=== PATIENT | female | born 1975 | race Caucasian/White ===

== ENCOUNTER 2020-09-23 14:15 | Outpatient (CLI) | payer MEDICARE, MEDICAID, SELFPAY ==
--- NOTE | ~2020-09-23 | XR_ITS ---
EXAMINATION: XR chest 2V EXAM DATE: 09/23/2020 15:06 INDICATION: Tobacco use. TECHNIQUE: Frontal and lateral projections of the chest obtained and reviewed. There is no prior sarmad dy for comparison. FINDINGS: The lungs are clear. There are no pleural effusions. The cardiomediastinal silhouette is within normal limits. There is no pneumothorax suspected. The bones and soft tissues are unremarkab le. IMPRESSION: No acute cardiopulmonary findings. Reviewed, dictated and finalized at location B. 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
== END 2020-09-23 14:16 | disposition home or self-care (01) ==
PROVIDERS: PCP Emergency Medicine; Visit Provider Emergency Medicine
DX: Z72.0 Tobacco use (principal)
CPT/HCPCS: 71046

== ENCOUNTER 2020-09-23 14:33 | Outpatient (CLI) | payer MEDICARE, MEDICAID, SELFPAY ==
--- NOTE | ~2020-09-23 | XR_ITS ---
EXAMINATION: XR knee RT min 4V DATE: 09/23/2020 15:06 INDICATION: Right knee pain. TECHNIQUE: 4 views of right knee were obtained. COMPARISON: None. FINDINGS: Bone alignment is normal. No fracture. There is mild tricompartmental osteoarthritis. No kn ee joint effusion. IMPRESSION: 1. Mild right knee osteoarthritis. Reviewed, dictated and finalized at location A. 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
--- NOTE | ~2020-09-23 | XR_ITS ---
EXAMINATION: XR shoulder RT min 2V DATE: 09/23/2020 15:06 INDICATION: Right shoulder pain. TECHNIQUE: 4 views of right shoulder were obtained. COMPARISON: None. FINDINGS: Bone alignment is normal. No fracture. There is mild osteoarthritis of glenohumeral joint a nd acromioclavicular joint. IMPRESSION: 1. Mild polyarticular osteoarthritis. Reviewed, dictated and finalized at location A. CTOR SALES TRAINING
--- NOTE | ~2020-09-23 | XR_ITS ---
EXAMINATION: XR lumbar spine 2-3V DATE: 09/23/2020 15:06 INDICATION: Lumbar radicular pain TECHNIQUE: Anteroposterior and lateral views of the lumbar spine, and cone-down lateral view of the l umbosacral junction were obtained. COMPARISON: None. FINDINGS: 4 mm anterolisthesis L4 on L5. Vertebral body heights are normal. Mild to moderate disc height loss a t L4-L5 and L5-S1. Mild disc height loss at L3-L4. Although poorly profiled there appears to be addit ional mild to moderate disc height loss at T9-T10 through L1-L2. Moderate to severe facet osteoarthri tis on the left at L2-L3 and bilaterally at L3-L4 through L5-S1. Sacrum and bilateral sacralized join ts are unremarkable. Visualized posterior lung bases are clear with no pleural effusion. IMPRESSION: 1. Moderate thoracolumbar spondylosis with 4 mm anterolisthesis L4 on L5. Reviewed, dictated and finalized at [facility]. PER FELLER
== END 2020-09-23 14:34 | disposition home or self-care (01) ==
LOC: ANHIMG 14:36
PROVIDERS: PCP Emergency Medicine; Visit Provider Nurse Practitioner
DX: M54.16 Radiculopathy, lumbar region (principal); M25.561 Pain in right knee; M25.511 Pain in right shoulder; M47.815 Spondylosis without myelopathy or radiculopathy, thoracolumbar region; M43.16 Spondylolisthesis, lumbar region; M19.011 Primary osteoarthritis, right shoulder; M17.11 Unilateral primary osteoarthritis, right knee
CPT/HCPCS: 71046; 72100; 73030; 73564

== ENCOUNTER 2020-10-22 15:48 | Outpatient (CLI) | payer MEDICARE, MEDICAID, SELFPAY ==
--- NOTE | ~2020-10-22 | MM_ITS ---
EXAMINATION: MM screening bartolo BI w leida HISTORY: Screening mammogram TECHNIQUE: Craniocaudal and mediolateral oblique 3-D tomosynthesis images were obtained and synthetic 2-D images were generated. CAD analysis was submitted and interpreted. COMPARISON: No prior mammogram is available for comparison at this institution. BREAST PARENCHYMAL COMPOSITION: The breasts are almost entirely fatty. FINDINGS: There are scattered bilateral benign calcifications. There is no evidence of suspicious mas s, calcification, or architectural distortion to suggest malignancy in either breast. There has been no suspicious interval change. IMPRESSION: 1. No mammographic evidence of malignancy. 2. Recommend routine screening mammography in one year. BI-RADS Category 1: Negative Reviewed, dictated and finalized at location A. OF IT
== END 2020-10-22 15:49 | disposition home or self-care (01) ==
PROVIDERS: PCP Emergency Medicine; Visit Provider Emergency Medicine
DX: Z12.31 Encounter for screening mammogram for malignant neoplasm of breast (principal)
CPT/HCPCS: 77063; 77067

== ENCOUNTER 2020-11-19 08:06 | Emergency (ER) | payer MEDICARE, MEDICAID, SELFPAY ==
--- NOTE | ~2020-11-19 | CT_ITS ---
EXAMINATION: CT brain wo con DATE: 11/19/2020 08:49 INDICATION: Head injury. TECHNIQUE: Computed tomography (CT) of the head was performed without intravenous contrast. The mA wa s adjusted according to patient size. Iterative reconstruction technique was employed. The dose-lengt h product was 605.33 mGy-cm. COMPARISON: None FINDINGS: There is no intracranial hemorrhage, acute infarction, or abnormal intracranial mass lesion . The ventricles are normal in size. The mastoid air cells are normal. There is minimal mucosal thick ening in the paranasal sinuses. Vertebral body heights are normal. IMPRESSION: 1. Normal brain. Reviewed, dictated and finalized at location B. EY'S AGENT IMPRESSION: 1. Normal brain.
--- NOTE | ~2020-11-19 | CT_ITS ---
EXAMINATION: CT facial & cervical spine wo DATE: 11/19/2020 08:49 INDICATION: Head and neck injury. TECHNIQUE: Computed tomography (CT) of the maxillofacial region and cervical spine was performed with out intravenous contrast. Automated exposure control and iterative reconstruction technique were empl oyed. The dose-length product was 481.58 mGy-cm. COMPARISON: None FINDINGS: MAXILLOFACIAL CT: There is leftward deviation of the nasal septum. No fracture. There is minimal mucosal thickening in the paranasal sinuses. CERVICAL SPINE CT: There is mild kyphosis of cervical spine. Vertebral body heights are normal. There is mildly decrease d disc height at C5-C6 and moderately decreased disc height at C6-C7. The following disc levels are s pecifically discussed: C2-C3: There is no uncovertebral joint osteoarthritis. There is mild bilateral facet joint osteoarthr itis. There is no neural foraminal stenosis. There is no central canal stenosis. C3-C4: There is mild bilateral uncovertebral joint osteoarthritis. There is no facet joint osteoarthr itis. There is mild bilateral neural foraminal stenosis. There is no central canal stenosis. C4-C5: There is no uncovertebral joint osteoarthritis. There is no facet joint osteoarthritis. There is no neural foraminal stenosis. There is no central canal stenosis. C5-C6: There is mild bilateral uncovertebral joint osteoarthritis. There is no facet joint osteoarthr itis. There is mild bilateral neural foraminal stenosis. There is mild central canal stenosis. C6-C7: There is severe right and mild left uncovertebral joint osteoarthritis. There is mild bilatera l facet joint osteoarthritis. There is moderate right and mild left neural foraminal stenosis. There is mild central canal stenosis. C7-T1: There is no uncovertebral joint osteoarthritis. There is moderate bilateral facet joint osteoa rthritis. There is mild left neural foraminal stenosis. There is no central canal stenosis. IMPRESSION: 1. No fracture. 2. Moderate cervical spondylosis. Reviewed, dictated and finalized at location B. TUBE WINDER
[2020-11-19 08:16] VITALS: BP 148/77; PULSE 71; RESP 13; TEMP 36.5; O2SAT 100
[2020-11-19] MEDS: KETOROLAC (*BKC) 60 MG/2 ML VIAL IM (08:35)
--- NOTE | 2020-11-19 08:47 | ED.FALL ---
HPI - Fall General Chief Complaint: Fall Stated Complaint: syncope Time Seen by Provider: 11/19/20 08:12 History of Present Illness HPI Narrative: Patient is a 45-year-old female who presents ER with concerns for injury after having a syncopal episode 2 days ago. Patient reports she was sitting at a desk and took a bong hit. It hit her wrong and caused her to lose consciousness. She struck her face. Since then she has had aching to her neck with no numbness or tingling. She reports she is had some mild headache. She reports additionally yesterday she had repetitive questioning is reported by family member. She is alert and oriented at this time. She has obvious signs of trauma to her face including swelling and bruising. No additional complaints at this time. She is not on any blood thinners. Related Data Home Medications Medication Instructions Recorded Confirmed aspirin [Adult Aspirin] 81 mg PO DAILY 11/19/20 buspirone 5 mg PO 11/19/20 cyclobenzaprine 10 mg 11/19/20 duloxetine mg PO 11/19/20 gabapentin 300 mg PO 11/19/20 lisinopril 10 mg PO 11/19/20 oxycodone-acetaminophen 1 tablet 11/19/20 quetiapine 100 mg PO 11/19/20 Allergies Allergy/AdvReac Type Severity Reaction Status Date / Time latex Allergy Other Verified 11/19/20 08:26 acetaminophen [From Vicodin] AdvReac Hallucinati Verified 11/19/20 08:31 ng hydrocodone [From Vicodin] AdvReac Hallucinati Verified 11/19/20 08:31 ng Review of Systems Review of Systems: All systems reviewed & are unremarkable except as noted in HPI and below ENT: Comments: Nasal pain/swelling. 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 HEAD: Normocephalic, atraumatic. ENT: Mucous membranes moist. Bruising and swelling over the bridge of the nose and bruising extends infraorbitally bilaterally. NECK: Supple. Mild paraspinal tenderness to the right side extending into the trapezius musculature. CHEST: Clear to auscultation. No respiratory distress. HEART: Regular rate and rhythm. Normal peripheral pulses. EXTREMITIES: Normal range of motion. No edema. NEURO: Alert and oriented x3. PSYCH: Normal mood and affect. Course Course Emergency Course: Asymptomatic orthostatic vital signs. Informed results. Discharge home. Vital Signs Vital signs: Vital Signs Temperature 97.7 F 11/19/20 08:16 Pulse Rate 71 11/19/20 08:16 Respiratory Rate 13 11/19/20 08:16 Blood Pressure 148/77 H 11/19/20 08:16 Pulse Oximetry 100 11/19/20 08:16 Temperature 97.7 F 11/19/20 08:16 Pulse Rate 64 11/19/20 09:33 Respiratory Rate 18 11/19/20 09:33 Blood Pressure 127/82 11/19/20 09:33 Pulse Oximetry 99 11/19/20 09:33 MDM - Fall Imaging Data Radiologist's impression: ITS Impressions Head CT 11/19/20 08:51 IMPRESSION: 1. Normal brain. Head/Cervical Spine/Facial Bones CT 11/19/20 08:53 IMPRESSION: 1. No fracture. 2. Moderate cervical spondylosis. Discharge Plan Discharge Clinical Impression: Concussion Patient Disposition: Home, Self-Care Condition: Stable Instructions: Concussion (ED) Additional Instructions: Return to the ER if you lose consciousness, you have fever over 101F, you have focal weakn
[2020-11-19 08:54] VITALS: BP 138/83; PULSE 76
[2020-11-19 08:55] VITALS: BP 121/89; BP 125/90; PULSE 67; PULSE 74
[2020-11-19 09:33] VITALS: BP 127/82; PULSE 64; RESP 18; O2SAT 99
[2020-11-19 10:10] VITALS: BP 134/85; PULSE 67; RESP 16; O2SAT 100
== END 2020-11-19 10:05 | disposition home or self-care (01) ==
PROVIDERS: Emergency Provider Emergency Medicine; PCP Emergency Medicine
DX: S06.0X0A Concussion without loss of consciousness, initial encounter (principal); Z79.82 Long term (current) use of aspirin; W22.8XXA Striking against or struck by other objects, initial encounter
CPT/HCPCS: 70450; 70486; 72125; 96372; 99284; J1885

== ENCOUNTER 2021-08-08 06:46 | Emergency (ER) | payer MEDICARE, MEDICAID, SELFPAY ==
--- NOTE | ~2021-08-08 | XR_ITS ---
XR pelvis 1-2V DATE: 08/08/2021 07:49 INDICATION: Fall 2 days ago. Low back pain, tailbone pain. Left buttock bruising. TECHNIQUE: 2 AP views COMPARISON: None FINDINGS: No pelvic fracture or bone destruction is detected. The pubic symphysis and sacroiliac join ts are intact. Hip joint spaces appear symmetric and relatively preserved. IMPRESSION: No pelvic fracture is detected Reviewed, dictated and finalized at location A.
--- NOTE | ~2021-08-08 | XR_ITS ---
XR lumbar spine 2-3V DATE: 08/08/2021 07:48 INDICATION: Fall 2 days ago. Low back pain, tailbone pain, left buttock bruising TECHNIQUE: AP, lateral, coned lateral lumbosacral views COMPARISON: None FINDINGS: Spina bifida occulta at L5. There is mild dextroscoliosis of the lumbar spine. There is mild degenerative spurring in the lower thoracic spine. There is degenerative change at the apophyseal joints of the lumbar spine with associated minimal grade 1 anterolisthesis at L4-5. No lumbar spine fracture is evident. The lumbar pedicles appear intact. The sacroiliac joints are int act. IMPRESSION: Degenerative changes of the thoracic and lumbar spine Minimal grade 1 anterolisthesis at L4-5 due to degenerative change at the apophyseal joints Mild lumbar dextroscoliosis No lumbar spine fracture is detected. Reviewed, dictated and finalized at location A. IMPRESSION: Degenerative changes of the thoracic and lumbar spine Minimal grade 1 anterolisthesis at L4-5 due to degenerative change at the apoph yseal joints Mild lumbar dextroscoliosis No lumbar spine fracture is detected.
--- NOTE | ~2021-08-08 | XR_ITS ---
XR thoracic spine 3V DATE: 08/08/2021 07:48 INDICATION: Fall. Back pain. TECHNIQUE: AP, lateral, swimmer views COMPARISON: None FINDINGS: There is degenerative disc disease of the lower cervical spine. There is degenerative spurring of the thoracic spine, most prominent on the right at T8-9, T9-10 and T10-11. No fracture or dislocation or bone destruction is detected. The thoracic pedicles are intact. No para spinal soft tissue thickening. IMPRESSION: Degenerative spurring; no thoracic spine fracture is detected Reviewed, dictated and finalized at location A.
[2021-08-08 06:55] VITALS: BP 150/81; PULSE 86; RESP 20; TEMP 36.6; O2SAT 97
[2021-08-08] MEDS: IBUPROFEN 600 MG TABLET PO (07:32)
[2021-08-08 08:09] VITALS: BP 121/52; PULSE 76; RESP 16; O2SAT 98
--- NOTE | 2021-08-08 08:16 | ED.BACK ---
HPI - Back Pain/Injury General Chief Complaint: Back Pain/Injury Stated Complaint: fall Time Seen by Provider: 08/08/21 07:18 Source: patient Mode of arrival: ambulatory Limitations: no limitations History of Present Illness HPI Narrative: Patient presents with pain at the left buttocks and across lumbar area started 2 days ago after missing 3 steps and falling on the floor. Patient denies other injuries. No loss of consciousness. Related Data Home Medications Medication Instructions Recorded Confirmed aspirin [Adult Aspirin] 81 mg PO DAILY 11/19/20 lisinopril 10 mg PO 11/19/20 06/11/21 quetiapine 100 mg PO 11/19/20 06/11/21 buspirone 10 mg tablet 10 mg PO BID 06/11/21 06/11/21 Allergies Allergy/AdvReac Type Severity Reaction Status Date / Time latex Allergy Other Verified 06/11/21 08:49 acetaminophen [From Vicodin] AdvReac Hallucinati Verified 06/11/21 08:49 ng hydrocodone [From Vicodin] AdvReac Hallucinati Verified 06/11/21 08:49 ng Review of Systems Review of Systems: CONSTITUTIONAL: Denies fever, chills, or sweats. EYES: Denies visual changes, redness, or discharge. ENT: Denies rhinorrhea, congestion, sore throat, or otalgia. CARDIOVASCULAR: Denies chest pain, palpitations, or edema. RESPIRATORY: Denies cough or dyspnea. GASTROINTESTINAL: Denies abdominal pain, nausea, vomiting, or diarrhea. GENITOURINARY: Denies dysuria or hematuria. SKIN: Denies rash or itching. MUSCULOSKELETAL: Denies back pain, joint pain, or myalgia. NEUROLOGIC: Denies headache, numbness, or weakness. PSYCHIATRIC: Denies anxiety or depression. 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 Family History Family History Father Alcoholism Mother Alcoholism Depression Hypertension Grandparent Alcoholism Diabetes mellitus Hypertension Heart disease Social History Social History Smoking status: Current every day smoker Tobacco type: cigarettes Alcohol intake: never Substance use: never Substance use type: does not use Gender identity (if verbalized by the patient): Female Sexual Orientation (if Verbalized by the Patient): Straight or Heterosexual Exam Narrative: General appearance: Well-developed, well-nourished Skin: Normal color, left buttock bruises Head: Normocephalic, nontraumatic Eyes: Clear conjunctiva ENT: Oropharynx normal, ears normal, nose normal Neck: Supple, nontender Chest and respiratory: Airway patent, no respiratory distress, no accessory muscle use Heart: Regular rate/rhythm Abdomen: Soft, nontender, no organomegaly, quiet bowel sounds Vascular: Normal peripheral pulses, normal capillary refill. Musculoskeletal: Diffuse tenderness and bruises at the left buttocks, mild tenderness across lumbar area and thoracic area. Neurologic: Alert and oriented ?3, [employer] [place] is normal as tested, no gross motor deficit Course Course Emergency Course: Stable Vital Signs Vital signs: Vital Signs Temperature 36.6 C 08/08/21 06:55 Pulse Rate 86 08/08/21 06:55 Respiratory Rate 20 08/08/21 06:55 Blood Pressure 150/81 H 08/08/21 06:55 Pulse Oximetry 97 08/08/21 06:55 Temperature 36.6 C 08/08/21 06:55 Pulse Rate 76 08/08/21 08:09 Respiratory Rate 16 08/08/21 08:09 Blood Pressure 121/52 L 08/08/21 08:09 Pulse Oximetry 98 08/08/21 08:09 MDM - Back Pain/Injury MDM Narrative Medical decision making narrative: Contusion, strain/sprain is my concern. X-ray thoracic, lumbar and pel
== END 2021-08-08 08:26 | disposition home or self-care (01) ==
PROVIDERS: Emergency Provider Emergency Medicine; PCP Emergency Medicine
DX: S30.0XXA Contusion of lower back and pelvis, initial encounter (principal); F17.210 Nicotine dependence, cigarettes, uncomplicated; Z79.82 Long term (current) use of aspirin; M47.814 Spondylosis without myelopathy or radiculopathy, thoracic region; M47.816 Spondylosis without myelopathy or radiculopathy, lumbar region; W10.9XXA Fall (on) (from) unspecified stairs and steps, initial encounter
CPT/HCPCS: 72072; 72100; 72170; 99284; A9270

== ENCOUNTER 2024-02-01 15:53 | Emergency (ER) | payer OTHER, SELFPAY ==
[2024-02-01] VITALS (15 sets, daily range): BP systolic 136–174; BP diastolic 80–93; PULSE 69–80; RESP 14–29; TEMP 36.3; O2SAT 97–100
--- NOTE | ~2024-02-01 | XR_ITS ---
XR chest 2V DATE: 02/01/2024 16:44 INDICATION: Pain TECHNIQUE: PA and lateral views COMPARISON: No prior radiographs are available from PACS at this time FINDINGS: Mild cardiomegaly. There is pulmonary vascular redistribution which may indicate mild pulmo nary venous hypertension. Slight blunting of the right costophrenic angle may indicate slight pleural effusion. Recommend clinical correlation for mild congestive change. No pulmonary consolidation or pneumothorax. Degenerative changes of the thoracic and lumbar spine. IMPRESSION: Cardiomegaly and possible mild congestive changes; recommend clinical correlation Reviewed, dictated and finalized at location B. IMPRESSION: Cardiomegaly and possible mild congestive changes; recommend clinic al correlation
--- NOTE | 2024-02-01 15:56 | ECG_ITS ---
Measurements Intervals [place] Rate: 85 P: 47 NC: 174 QRS: 4 QRSD: 96 T: 44 QT: 378 QTc: 450 Interpretive Statements SINUS RHYTHM POSSIBLE ANTERIOR MYOCARDIAL INFARCTION , PROBABLY OLD [30 ms Q WAVE IN V3/V4, OR R < 0.2 mV IN V4] NO PREVIOUS ECG AVAILABLE FOR COMPARISON Electronically Signed On 02-02-2024 12:18:28 CDT by Bruce Smyth M.D.
[2024-02-01 16:11] LABS: Basophils Absolute Auto 0.1 K/mm3 (0.0-0.1); Basophils Percent Auto 0.5 % (0.2-1.2); Eosinophils Absolute Auto 0.4 K/mm3 (0-0.3); Eosinophils Percent Auto 3.1 % (0-4.4); Hematocrit 43.9 % (37.0-47.0); Hemoglobin 14.3 g/dL (12.0-15.0); Immature Granulocyte Absolute 0.06 K/mm3 (0.00-0.031); Immature Granulocyte Percent A 0.5 % (0-0.5); Lymphocytes Absolute Auto 5.55 K/mm3 (0.9-3.2); Lymphocytes Percent Auto 42.1 % (18.3-44.2); Mean Corpuscular HGB Conc 32.6 g/dl (32-36); Mean Corpuscular Hemoglobin 33.8 pg (26-34); Mean Corpuscular Volume 103.8 fl (80-100); Mean Platelet Volume 8.5 fl (7.4-10.4); Monocytes Percent Auto 7.8 % (2.6-8.5); Neutrophils Absolute Auto 6.1 K/mm3 (1.3-6.7); Platelet Count Result 594 k/mm3 (150-375); Red Blood Count 4.23 M/mm3 (4.2-5.4); Red Cell Distribution Width 12.8 % (11.5-14.5); White Blood Count 13.2 K/mm3 (4.5-10.0)
--- NOTE | 2024-02-01 16:16 | ED.CHESTPAIN ---
HPI - Chest Pain General Chief Complaint: Chest Pain <Chi Bearden APRN - Last Filed: 02/01/24 16:19> Stated Complaint: chest pain <Chi Bearden APRN - Last Filed: 02/01/24 16:19> Time Seen by Provider: 02/01/24 16:16 <Chi Bearden APRN - Last Filed: 02/01/24 16:19> Focused HPI: Angela is a 48-year-old female patient presenting to the emergency room today with complaints of sharp midsternal chest pain and aching pain over the left clavicle area. She reports that they symptoms started at about 1 hour prior to arrival in the emergency room. Rates her pain currently a 4/10. Pain is reproducible upon palpation over the midsternum/ left clavicle denies any associated shortness of breath, headache, or dizziness. Pain does not radiate down her arm, into her jaw, or into her back. States she does have a history of panic disorder but this is not feel like a normal anxiety attack for her. General: Well-developed, morbidly obese, in no apparent distress Head: Normocephalic, atraumatic. Chest wall: Even rise and fall of the chest wall with respirations, reproducible pain over the mid sternum and the left clavicle upon palpation, no swelling or bruising noted. Cardio: Regular rate and rhythm, s1 and s2 normal, no murmur appreciated. Resp: Clear to auscultation bilaterally, no rhonchi, rales, wheezing or rubs. Extremities: No deformity, no edema, no cyanosis, capillary refill less than 2 seconds, peripheral pulses palpable and strong. Integumentary: [place], warm, and dry, intact without lesion, no rashes. Patient screened in triage and initial orders placed. Additional care and disposition to be based upon diagnostic testing and treatment. <Chi Bearden APRN - Last Filed: 02/01/24 16:19> Source: patient <Chi Bearden APRN - Last Filed: 02/01/24 16:19> Mode of arrival: ambulatory <Chi Bearden APRN - Last Filed: 02/01/24 16:19> Limitations: no limitations <Chi Bearden APRN - Last Filed: 02/01/24 16:19> Related Data Home Medications: Home Medications Medication Instructions Recorded Confirmed albuterol sulfate 90 mcg/actuation 1 puff inhalation Q4H PRN 12/08/22 09/30/23 aerosol inhaler atomoxetine 40 mg capsule 40 mg PO DAILY 12/08/22 09/30/23 duloxetine 30 mg capsule,delayed 30 mg PO BID 12/08/22 09/30/23 release <Chi Bearden APRN - Last Filed: 02/01/24 16:19> Allergies/Adverse Reactions: Allergies Allergy/AdvReac Type Severity Reaction Status Date / Time walnut Allergy Mild rash Verified 01/03/24 10:32 latex Allergy Other Verified 01/03/24 10:32 acetaminophen [From Vicodin] AdvReac Hallucinati Verified 01/03/24 10:32 ng hydrocodone [From Vicodin] AdvReac Hallucinati Verified 01/03/24 10:32 ng <Chi Bearden, GRAPHICS MANAGER - Last Filed: 02/01/24 16:19> Review of Systems Review of Systems: CONSTITUTIONAL: Denies fever CARDIOVASCULAR: Reports chest pain. Denies edema. RESPIRATORY: Denies dyspnea. <Little Gustafson PA-C - Last Filed: 02/01/24 19:57> All systems reviewed & are unremarkable except as noted in HPI and below <Little Gustafson PA-C - Last Filed: 02/01/24 19:57> [facility] Past Medical History Medical History: Medical History Abnormality of heart beat Allergies Anxiety Arthritis Asthma Claustrophobia Congestion of nasal sinus Degenerative joint disease of knee Depression Dizziness Effusion of knee joint Headache Heart murmur Hypertension IBS (irritable bowel syndrome) Light headedness Major depressive disorder Near syncope Obesity Right knee DJD Right knee pain Sleep disorder Tobacco abuse 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
[2024-02-01 16:25] LABS: Alanine Aminotransferase 22 U/L (6-35); Albumin Level 4.1 g/dL (3.5-5.1); Alkaline Phosphatase 94 U/L (38-126); Anion Gap 1 mmol/L (4-12); Aspartate Amino Transferase 22 U/L (14-36); Bilirubin,Total 0.4 mg/dL (0.2-1.3); Blood Urea Nitrogen 11 mg/dL (7-17); Calcium 9.5 mg/dL (8.4-10.2); Carbon Dioxide 30 mmol/L (22-30); Chloride 106 mmol/L (98-107); Estimated CRCL calculation 87 ml/min; Estimated Glomerular Filt Rate > 60; Glucose 103 mg/dL (65-110); Lipase 194 U/L (23-300); Potassium 3.7 mmol/L (3.4-5.0); Sodium 137 mmol/L (137-145)
[2024-02-01 16:28] LABS: INR 0.8; Prothrombin Time 11.6 Seconds (11.1-14.7)
[2024-02-01 16:29] LABS: Partial Thromboplastin Time 28.8 Seconds (22.3-36.8)
[2024-02-01 16:37] LABS: Troponin I < 0.012 ng/mL (0.000-0.034)
[2024-02-01] MEDS: ASPIRIN 81 MG CHEWABLE TABLET 324 MG PO (17:53)
--- NOTE | 2024-02-01 18:16 | ED.CHESTPAIN ---
HPI - Chest Pain General Chief Complaint: Chest Pain Stated Complaint: chest pain Time Seen by Provider: 02/01/24 16:16 Source: patient Mode of arrival: ambulatory Limitations: no limitations History of Present Illness HPI narrative: This is a 48-year-old female that presents to the emergency department for left-sided chest discomfort. Reports a sharp pain on the left side of her chest that radiates into her shoulder. It has been constant over the last couple of hours. She was driving when the pain started. No history of heart disease. No associated symptoms. Denies shortness of breath or lower extremity edema. Related Data Home Medications Medication Instructions Recorded Confirmed albuterol sulfate 90 mcg/actuation 1 puff inhalation Q4H PRN 12/08/22 09/30/23 aerosol inhaler atomoxetine 40 mg capsule 40 mg PO DAILY 12/08/22 09/30/23 duloxetine 30 mg capsule,delayed 30 mg PO BID 12/08/22 09/30/23 release Allergies Allergy/AdvReac Type Severity Reaction Status Date / Time walnut Allergy Mild rash Verified 01/03/24 10:32 latex Allergy Other Verified 01/03/24 10:32 acetaminophen [From Vicodin] AdvReac Hallucinati Verified 01/03/24 10:32 ng hydrocodone [From Vicodin] AdvReac Hallucinati Verified 01/03/24 10:32 ng Review of Systems Review of Systems: CONSTITUTIONAL: Denies fever CARDIOVASCULAR: Reports chest pain. Denies edema. RESPIRATORY: Denies cough or dyspnea. 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 this Urinary incontinence Wears glasses Surgical History Surgical History H/O: hysterectomy (~2018) History of section, classical (~2012) History of elbow surgery Family History Family History Father Alcoholism Mother Alcoholism Depression Hypertension Grandparent Alcoholism Diabetes mellitus Hypertension Heart disease Other Arthritis Cerebrovascular accident Social History Social History Smoking packs per day: 0.25 Smoking cigarettes per day: 5.0 Years smoked: 30 Smoking pack-years: 7.50 Smoking status: Current every day smoker Tobacco type: cigarettes Alcohol intake: never Substance use: current Substance use type: marijuana Lack of Transportation: No Lack of Food: Never True Current Housing: I Have Housing Concerned About Future Housing: No Difficulty Paying Gas/Electric Bills: No Difficulty Paying for Meds: YES Currently Unemployed: No Education: High School Diploma/GED Difficulty w/ Childcare or Family Care: No Gender identity (if verbalized by the patient): Female Sexual Orientation (if Verbalized by the Patient): Straight or Heterosexual Exam Narrative: GENERAL: Well-appearing, well-nourished, and in no acute distress. HEAD: Normocephalic, atraumatic. EYES: EOMI. CHEST: Clear to auscultation. No respiratory distress. No wheezes rales or rhonchi. Tender to palpation of the left chest wall anteriorly HEART: Regular rate and rhythm. No murmur heard. Normal peripheral pulses. EXTREMITIES: Normal range of motion. No edema. SKIN: Warm, dry, no rash. NEURO: No focal deficits. Alert and oriented x3. PSYCH: Normal mood and affect Course Vital Signs Vital signs: Vital Signs Temperature 97.3 F L
--- NOTE | 2024-02-01 18:39 | ECG_ITS ---
Measurements Intervals [place] Rate: 73 P: 49 [place]: 193 QRS: 27 QRSD: 98 T: 47 QT: 411 QTc: 453 Interpretive Statements SINUS RHYTHM LOW QRS VOLTAGE IN PRECORDIAL LEADS [QRS DEFLECTION < 1.0 mV IN CHEST LEADS] RSR' IN V1 CANNOT RULE OUT ANTERIOR MYOCARDIAL INFARCTION, PROBABLY OLD ABNORMAL ECG COMPARED TO ECG 02/01/2024 16:00:15 NO SIGNIFICANT CHANGE Electronically Signed On 02-02-2024 14:27:44 CDT by Shamar Martinez M.D.
[2024-02-01] MEDS: KETOROLAC 15 MG/ML VIAL (*BKC) IV PUSH (19:01)
[2024-02-01 19:07] LABS: NT Pro B Type Natriuretic Pept 174 pg/mL (19.9-100)
[2024-02-01 19:21] LABS: Troponin I < 0.012 ng/mL (0.000-0.034)
== END 2024-02-01 20:00 | disposition home or self-care (01) ==
PROVIDERS: Emergency Medicine; Emergency Provider Physician Assistant; PCP Nurse Practitioner Family
DX: R07.2 Precordial pain (principal); I10 Essential (primary) hypertension; J45.909 Unspecified asthma, uncomplicated; E66.01 Morbid (severe) obesity due to excess calories; Z68.42 Body mass index [BMI] 45.0-49.9, adult; G47.9 Sleep disorder, unspecified; M17.11 Unilateral primary osteoarthritis, right knee; K58.9 Irritable bowel syndrome, unspecified; Z90.710 Acquired absence of both cervix and uterus; F41.9 Anxiety disorder, unspecified; F32.A Depression, unspecified; F17.210 Nicotine dependence, cigarettes, uncomplicated; I51.7 Cardiomegaly; R94.31 Abnormal electrocardiogram [ECG] [EKG]
CPT/HCPCS: 36415; 71046; 80053; 83690; 83880; 84484; 85025; 85610; 85730; 93005; 96374; 99284; A9270; J1885

== ENCOUNTER 2025-03-03 13:30 | Outpatient (CLI) | payer OTHER, MEDICAID, SELFPAY ==
--- NOTE | ~2025-03-03 | MR_ITS ---
MRI of the right knee Clinical history: Pain Technique: Coronal proton density and proton density-weighted images, sagittal proton-density and T2 fat-sat images, and axial proton-density fat-saturated images were acquired. Findings: Anterior and posterior cruciate ligaments are intact. Medial collateral ligament and the la teral collateral ligament complex are intact. Popliteus tendon is intact. No medial meniscal tear seen. There is extensive complex tearing throughout the entirety of the later al meniscus, especially body segment. There is extrusion of the body segment of the lateral gutter. There is mild chondromalacia of the patellofemoral compartment. There is extensive high-grade chondro malacia of the lateral compartment, diffusely involving the lateral tibial plateau, as well as the la teral aspect of the lateral femoral condyle. There is amorphous marrow edema in the lateral femoral c ondyle, compatible with stress response. Questionable very subtle/early subchondral insufficiency fra cture in the lateral femoral condyle region. There is additional stress response marrow edema at the lateral aspect of the lateral tibial plateau. There is moderate chondromalacia at the inner margin of the medial femoral condyle. Small tricompartmental osteophytes are present. Extensor mechanism is intact. Moderate joint effusion present. No Lara's cyst. There is prepatellar subcutaneous soft tissue edema. Impression: Extensive complex tearing of the lateral meniscus, especially body segment, which is extruded into th e lateral gutter. Extensive stress response marrow edema in the lateral femoral condyle with questionable very subtle/e giselle subchondral insufficiency fracture. Additional stress response marrow edema in the lateral tibial plateau. Advanced degenerative change of the lateral compartment. Mild degenerative change of the medial and p atellofemoral compartments. Moderate joint effusion. Reviewed, dictated and finalized at location M. Impression: Extensive complex tearing of the lateral meniscus, especially body segment, whi ch is extruded into the lateral gutter. Extensive stress response marrow edema in the lateral femoral condyle with ques tionable very subtle/early subchondral insufficiency fracture. Additional stress response marrow edema in the lateral tibial plateau. Advanced degenerative change of the lateral compartment. Mild degenerative judge ge of the medial and patellofemoral compartments. Moderate joint effusion.
--- OUTSIDE RECORDS SUMMARY | 2025-03-03 16:35 | XMS_ITS | Encounter Summary ---
Author Organization [facility] Address Formerly [facility] [place] [address] Care Team Providers Care Managing Jeweler Name Role Phone Britta Corral Primary Care Provider [phone] Encounter Details Date Type Department Care Team (Late st Contact Info) Description 09/12/2024 Rollad Message Enc [facility] Family Medicine - [place] [address], [address] [place] [address] Lorenza, [facility] Provider Colon Cancer Screening Social History Tobacco Use Types Packs/Day Years Used Date Smoking Tobacco: Every Day Cigarettes 0.5 30 Passive Smoke Exposure: Current Smokeless Tobacco: Never Comments:The provider can pr ovide you with information to quit smoking. Alcohol Use Standard Drinks/Week Comments Never 0 (1 standard drink = 0.6 oz pur e alcohol) PHQ-2 Answer Date Recorded Patient Health Questionnaire-2 Score 0 12/02/2023 Comments No Sex and Gender Information Value Date Recorded Sex Assigned at Female 12/14/2023 9:51 AM BIOINFORMATICS ANALYST Legal Sex Female 12:37 PM CDT Gender Identity Female 12/14/2023 9:51 AM BIOINFORMATICS ANALYST Sexual Orientation Not on file documented as of this encounter Plan of Treatment Not on file documented as of this encounter Visit Diagnoses Diagnosis Colon cancer screening- Primary Special screening for malignant neoplasms, colon documented in this encounter Additional Health Concerns Assessment Noted Time PHQ-9 Depression Total Score: 8 11/08/19 24 8:33 AM BIOINFORMATICS ANALYST documented as of this encounter Care Teams Managing Jeweler Relationship Specialty Start Date End Date Britta Corral FNP [address] [place] [id number] PCP - General Nurse Practitioner Family 03/24/23 documented as of this encounter
--- OUTSIDE RECORDS SUMMARY | 2025-03-03 16:35 | XMS_ITS | Data Portability ---
Author Organization [facility] n[facility], shilpa [facility] [place] Address [address] [place] [address] Care Team Providers Care Api Architect Name Role Phone MARYSE FERRIS Security Solutions Engineer MARYSE PRESLEY Primary Care Provider Unavailab le Assessment Encounter Date Assessment Date Assessment LastModified by Organization Details LastModified Time 10/07/2017 10/07/2017 WOUND CARE HERE TODAY, ACTIVITY RESTRXN DISCUSSED, RET TO OFFICE THREE WKS [email or web address] Not available 10/07/2017 15:11:43 10/28/2017 10/28/2017 BENIGN PATH, NORMAL POST OP COURSE, ACTIVITY RESTRXNS LIFTED EXCEPT FOR IC, ONE MORE WEEK OF PELVIC REST RECOMMENDED, RET TO OFFICE ONE YR OR PRN, CONT ERT [email or web address] Not available 10/28/2017 12:55:44 04/14/2018 04/14/2018 Plan: - CBC, iron studies, CMP - Discussed smoking cessation - RTC in 6 months Not available 04/14/2018 16:14:30 05/01/2019 05/01/2019 dec caffeine, inc kegels, bladder training, cont ERT, declines testosterone, trial of Myrbetriq, annual or prn visits, discussed TOTVT [email or web address] Not available 05/01/2019 16:09:35 Plan of Treatment Reminders Order Date Submit Date Provider Last Modified By Organization Details Last Modified Time Details Appointments None record ed. Lab CBC w/ auto diff 2017 018 [email or web address] [facility] Outpatient Scheduling, [address] [place] [address] [place], [address], 8 11:31:56 ferrit in, serum or plasma 2017 018 [email or web address] ramon [facility] Outpatient Scheduling, 1 [facility] [place], [address], 8 11:31:56 CMP, serum or plasma 2017 018 [email or web address] [facility] Outpatient Scheduling, 1 [facility] [place], [address], 8 19:26:26 Referral orthop edic referr al 2017 018 [email or web address] [facility], [address] [place], [address], 8 16:24:11 Procedures None record ed. Surgeries None record ed. Imaging None record ed. Medication Orders estrad iol 1 mg tablet [address] [id number], [address] [facility] [place], [id number], 9 16:28:20 Myrbet riq 25 mg tablet ,exten ded releas e [address] [id number], [address] [facility] [place], [id number], 9 16:28:20 Wellbu deshawn SR 150 mg tablet , 12 hr sustai faraz-re lease [address] [facility] [address] [address], [place], [address], 8 12:05:04 duloxe rocío 30 mg capsul e,iain yed releas e [address] [facility], [address] [address], [place], [address], 8 12:05:04 alpraz olam 0.5 mg tablet [address] [facility], [address] [address], [place], [address], 8 12:05:04 alpraz olam 0.5 mg tablet 2017 018 [email or web address] [facility], [address] [address], [place], [address], 8 16:56:54 Patient TargetsNo targets recorded. Patient Instructions Encounter Date Encounter Id Patient Instructions Last Modified By Organization Details Last Modified Time 10/07/2017 2100 CONT ERT, PELVIC REST, SCRIPT FOR XANA X FROM HER PCP REFILLED FOR ONE MONTH Not available 10/07/2017 15:12:12 04/14/2018 [id number] smoking cessatio n counseling, greater than 3 minutes up to 10 minutes* [email or web address] Not available 04/21/2018 09:55:20 05/01/2019 [id number] TOTVT info [email or web address] Not available 16:09:45 Reason for Referral Orthopedic Referral for Knee pain Right knee and Righ ankle Referring Physician: Maryse Presley, Internal Medicine, Encounter Date: 04/14/2018 Results Created Date Observation Date Name Description Value Unit Range Abnormal Flag Note LastModifiedBy Organization Detail LastModifiedTime 09/30/20 17 09/30/2017 type + scree n, blood ABO type A normal Not Available [address] [place], [address], 09/30/2017 11:15:55 09/30/20 17 09/30/2017 type + scree n, blood Rh POSITI VE normal Not Available [address], [place], [address], 09/30/2017 11:15:55 09/30/20 17 09/30/2017 type + scree n, blood indirect bridget (antibody scr) NEGATI VE negati ve normal Not Available [address], [place], [address], 09/30/2017 11:15:55 09/30/20 17 09/30/2017 type + scree n, blood log # [id number] normal Not Available [address] [place], [address], 09/30/2017 11:15:55 04/14/20 18 04/14/2018 maritza tin, level ferritin 95 NG/mL 8-252 Not Available [address] [place], [address], 04/14/2018 19:50:00 04/14/20 18 04/14/2018 CMP, serum or plasm a sodium 143 mmol/ L 136-14 5 Not Available [address] [place], [address], 04/14/2018 19:26:26 04/14/20 18 04/14/2018 CMP, serum or plasm a potassium 4.4 mmol/ L 3.5-5. 1 Not Available [address] [place], [address], 04/14/2018 19:26:26 04/14/20 18 04/14/2018 CMP, serum or plasm a chloride 105 mmol/ L 98-107 Not Available [address], [place], [address], 04/14/2018 19:26:26 04/14/20 18 04/14/2018 CMP, serum or plasm a carbon dioxide 31 mmol/ L 21-32 Not Available [address], [place], [address], 04/14/2018 19:26:26 04/14/20 18 04/14/2018 CMP, serum or plasm a anion gap 11 mmol/ L 5-15 Not Available [address] [place], [address], 04/14/2018 19:26:26 04/14/20 18 04/14/2018 CMP, serum or plasm a blood urea nitrogen 13 mg/dL 7-18 Not Available [address], [address], 04/14/2018 19:26:26 04/14/20 18 04/14/2018 CMP, serum or plasm a creatinine 1.15 mg/dL 0.60-1 .30 Not Available [address] [place], [address], 04/14/2018 19:26:26 04/14/20 18 04/14/2018 CMP, serum or plasm a BUN/creatini ne ratio 11 calc 5-37 Not Available [address] [place], [address], 04/14/2018 19:26:26 04/14/20 18 04/14/2018 CMP, serum or plasm a est glomerular filtration rate 51 >60 low REFER ENCE RANGE : Miladis l eGFR > 60 Kidne y Disea se 15-59 Kidne y Failu re < 15 Pleas e note: The eGFR equat ions are not valid for those who are less than 18 years of age or great er than 70 years of age becau se they are depen dent on body mass. Units of Measu re = mL/mi n/1.7 3m2 Not Available [address], [place], [address], 04/14/2018 19:26:26 04/14/20 18 04/14/2018 CMP, serum or plasm a random blood sugar 124 mg/dL 70-140 Not Available [address], [place], [address], 04/14/2018 19:26:26 04/14/20 18 04/14/2018 CMP, serum or plasm a calcium 9.0 mg/dL 8.5-10 .1 Not Available [address], [place], [address], 04/14/2018 19:26:26 04/14/20 18 04/14/2018 CMP, serum or plasm a bilirubin,to jensen 0.28 mg/dL 0.20-1 .00 Not Available [address] [place], [address], 04/14/2018 19:26:26 04/14/20 18 04/14/2018 CMP, serum or plasm a aspartate amino trans. AST 18 U/L 15-37 Not Available [address] [place], [address], 04/14/2018 19:26:26 04/14/20 18 04/14/2018 CMP, serum or plasm a alanine aminotransfe rase 23 U/L 12-78 Not Available [address] [place], [address], 04/14/2018 19:26:26 04/14/20 18 04/14/2018 CMP, serum or plasm a total protein 8.1 g/dL 6.4-8. 2 Not Available [address] [place], [address], 04/14/2018 19:26:26 04/14/20 18 04/14/2018 CMP, serum or plasm a albumin 3.7 g/dL 3.4-5. 0 Not Available [address], [place], [address], 04/14/2018 19:26:26 04/14/20 18 04/14/2018 CMP, serum or plasm a globulin 4.4 g/dL Not Available [address], [place], [address], 04/14/2018 19:26:26 04/14/20 18 04/14/2018 CMP, serum or plasm a albumin/glob ulin ratio 0.8 ratio 1.0-2. 0 low Not [place] [address] [place], [address], 04/14/2018 19:26:26 04/14/20 18 04/14/2018 CMP, serum or plasm a alkaline phosphatase 83 U/L 46-116 Not Available [address], [place], [address], 04/14/2018 19:26:26 04/14/20 18 04/14/2018 CBC w/ diff white blood count 11.2 10_3/ uL 4.5-11 .5 Not Available [address] [place], [address], 04/14/2018 19:13:38 04/14/20 18 04/14/2018 CBC w/ diff red blood count 4.39 10_6/ uL 4.00-5 .40 Not Available [address] [place], [address], 04/14/2018 19:13:38 04/14/20 18 04/14/2018 CBC w/ diff hemoglobin 14.5 g/dL 12.0-1 5.0 Not Available [address] [place], [address], 04/14/2018 19:13:38 04/14/20 18 04/14/2018 CBC w/ diff hematocrit 44.8 % 35.0-4 9.0 Not Available [address], [address], 04/14/2018 19:13:38 04/14/20 18 04/14/2018 CBC w/ diff mean corpuscular volume 102.1 fL 80.0-9 4.0 high Not Available [address], [address], 04/14/2018 19:13:38 04/14/20 18 04/14/2018 CBC w/ diff mean corpuscular hemoglobin 33.0 pg 26.0-3 2.0 high Not Available [address], [address], 04/14/2018 19:13:38 04/14/20 18 04/14/2018 CBC w/ diff mean corpuscular HGB conc 32.4 g/dL 32.0-3 6.0 Not Available [address], [address], 04/14/2018 19:13:38 04/14/20 18 04/14/2018 CBC w/ diff red cell distribution width SD 49.5 fL 36.4-4 6.3 high Not Available [address], [address], 04/14/2018 19:13:38 04/14/20 18 04/14/2018 CBC w/ diff red cell distribution width CV 13.0 % 11.7-1 4.4 Not Available [address], [address], 04/14/2018 19:13:38 04/14/20 18 04/14/2018 CBC w/ diff platelet count 548 10_3/ uL 150-45 0 high Not Available [address], [address], 04/14/2018 19:13:38 04/14/20 18 04/14/2018 CBC w/ diff mean platelet volume 9.2 fL 7.54-1 1.24 Not Available [address] [place], [address], 04/14/2018 19:13:38 04/14/20 18 04/14/2018 CBC w/ diff neutrophils % 56.7 % 50.0-7 0.0 Not Available [address] [place], [address], 04/14/2018 19:13:38 04/14/20 18 04/14/2018 CBC w/ diff immature granulocyte % 0.3 % 0.0-4. 3 Not Available [address] [place], [address], 04/14/2018 19:13:38 04/14/20 18 04/14/2018 CBC w/ diff lymphocytes % 33.0 % 18.0-4 2.0 Not Available [address] [place], [address], 04/14/2018 19:13:38 04/14/20 18 04/14/2018 CBC w/ diff monocytes % 7.3 % 2.0-11 .0 Not Available [address] [place], [address], 04/14/2018 19:13:38 04/14/20 18 04/14/2018 CBC w/ diff eosinophils % 2.3 % 1.0-3. 0 Not Available [address] [place], [address], 04/14/2018 19:13:38 04/14/20 18 04/14/2018 CBC w/ diff basophils % 0.4 % 0.0-2. 0 Not Available [address] [place], [address], 04/14/2018 19:13:38 04/14/20 18 04/14/2018 CBC w/ diff nucleated red blood cells % 0.0 % 0.0-0. 2 Not Available [address] [place], [address], 04/14/2018 19:13:38 04/14/20 18 04/14/2018 CBC w/ diff neutrophils absolute 6.32 10_3/ uL 1.56-6 .13 high Not Available [address] [place], [address], 04/14/2018 19:13:38 04/14/20 18 04/14/2018 CBC w/ diff immature granulocyte absolute 0.03 10_3/ uL 0.00-0 .03 Not Available [address] [place], [address], 04/14/2018 19:13:38 04/14/20 18 04/14/2018 CBC w/ diff lymphocytes absolute 3.69 10_3/ uL 1.18-3 .74 Not Available [address] [place], [address], 04/14/2018 19:13:38 04/14/20 18 04/14/2018 CBC w/ diff monocytes absolute 0.82 10_3/ uL 0.24-0 .36 high Not Available [address] [place], [address], 04/14/2018 19:13:38 04/14/20 18 04/14/2018 CBC w/ diff eosinophils absolute 0.26 10_3/ uL 0.04-0 .36 Not Available [address] [place], [address], 04/14/2018 19:13:38 04/14/20 18 04/14/2018 CBC w/ diff basophils absolute 0.05 10_3/ uL 0.01-0 .08 Not Available [address] [place], [address], 04/14/2018 19:13:38 04/14/20 18 04/14/2018 CBC w/ diff nucleated red blood cells abso 0.00 10_3/ uL 0.00-0 .01 Not Available [address] [place], [address], 04/14/2018 19:13:38 05/23/20 18 05/24/2018 folat e, RBC folate, RBC 714 NG/mL _RBC >280 TESTI NG PERFO RMED AT [facility] [place], [address], [place] [address] Not Available [address] [place], [address], 05/24/2018 14:55:51 05/23/20 18 05/23/2018 vitam in B12, level vitamin B12 484 pg/mL 193-98 6 Not Available [address] [place], [address], 05/23/2018 15:13:35 05/23/20 18 05/23/2018 CBC w/ diff white blood count 14.5 10_3/ uL 4.5-11 .5 high Not Available [address] [place], [address], 05/23/2018 14:30:43 05/23/20 18 05/23/2018 CBC w/ diff red blood count 4.18 10_6/ uL 4.00-5 .40 Not Available [address] [place], [address], 05/23/2018 14:30:43 05/23/20 18 05/23/2018 CBC w/ diff hemoglobin 13.8 g/dL 12.0-1 5.0 Not Available [address], [address], 05/23/2018 14:30:43 05/23/20 18 05/23/2018 CBC w/ diff hematocrit 42.5 % 35.0-4 9.0 Not Available [address] [place], [address], 05/23/2018 14:30:43 05/23/20 18 05/23/2018 CBC w/ diff mean corpuscular volume 101.7 fL 80.0-9 4.0 high Not Available [address] [place], [address], 05/23/2018 14:30:43 05/23/20 18 05/23/2018 CBC w/ diff mean corpuscular hemoglobin 33.0 pg 26.0-3 2.0 high Not Available [address] [place], [address], 05/23/2018 14:30:43 05/23/20 18 05/23/2018 CBC w/ diff mean corpuscular HGB conc 32.5 g/dL 32.0-3 6.0 Not Available [address] [place], [address], 05/23/2018 14:30:43 05/23/20 18 05/23/2018 CBC w/ diff red cell distribution width SD 48.7 fL 36.4-4 6.3 high Not Available [address] [place], [address], 05/23/2018 14:30:43 05/23/20 18 05/23/2018 CBC w/ diff red cell distribution width CV 13.0 % 11.7-1 4.4 Not Available [address] [place], [address], 05/23/2018 14:30:43 05/23/20 18 05/23/2018 CBC w/ diff platelet count 515 10_3/ uL 150-45 0 high Not Available [address] [place], [address], 05/23/2018 14:30:43 05/23/20 18 05/23/2018 CBC w/ diff mean platelet volume 9.4 fL 7.54-1 1.24 Not Available [address], [address], 05/23/2018 14:30:43 05/23/20 18 05/23/2018 CBC w/ diff neutrophils % 65.6 % 50.0-7 0.0 Not Available [address], [address], 05/23/2018 14:30:43 05/23/20 18 05/23/2018 CBC w/ diff immature granulocyte % 0.3 % 0.0-4. 3 Not Available [address], [place], [address], 05/23/2018 14:30:43 05/23/20 18 05/23/2018 CBC w/ diff lymphocytes % 21.8 % 18.0-4 2.0 Not Available [address], [place], [address], 05/23/2018 14:30:43 05/23/20 18 05/23/2018 CBC w/ diff monocytes % 9.6 % 2.0-11 .0 Not Available [address], [place], [address], 05/23/2018 14:30:43 05/23/20 18 05/23/2018 CBC w/ diff eosinophils % 2.3 % 1.0-3. 0 Not Available [address] [place], [address], 05/23/2018 14:30:43 05/23/20 18 05/23/2018 CBC w/ diff basophils % 0.4 % 0.0-2. 0 Not Available [address] [place], [address], 05/23/2018 14:30:43 05/23/20 18 05/23/2018 CBC w/ diff nucleated red blood cells % 0.0 % 0.0-0. 2 Not Available [address] [place], [address], 05/23/2018 14:30:43 05/23/20 18 05/23/2018 CBC w/ diff neutrophils absolute 9.52 10_3/ uL 1.56-6 .13 high Not Available [address] [place], [address], 05/23/2018 14:30:43 05/23/20 18 05/23/2018 CBC w/ diff immature granulocyte absolute 0.05 10_3/ uL 0.00-0 .03 high Not Available [address] [place], [address], 05/23/2018 14:30:43 05/23/20 18 05/23/2018 CBC w/ diff lymphocytes absolute 3.17 10_3/ uL 1.18-3 .74 Not Available [address], [place], [address], 05/23/2018 14:30:43 05/23/20 18 05/23/2018 CBC w/ diff monocytes absolute 1.39 10_3/ uL 0.24-0 .36 high Not Available [address] [place], [address], 05/23/2018 14:30:43 05/23/20 18 05/23/2018 CBC w/ diff eosinophils absolute 0.34 10_3/ uL 0.04-0 .36 Not Available [address] [place], [address], 05/23/2018 14:30:43 05/23/20 18 05/23/2018 CBC w/ diff basophils absolute 0.06 10_3/ uL 0.01-0 .08 Not Available [address] [place], [address], 05/23/2018 14:30:43 05/23/20 18 05/23/2018 CBC w/ diff nucleated red blood cells abso 0.00 10_3/ uL 0.00-0 .01 Not Available [address] [place], [address], 05/23/2018 14:30:43 07/07/20 18 07/07/2018 CBC w/ diff white blood count 9.0 10_3/ uL 4.5-11 .5 Not Available [address] [place], [address], 07/07/2018 14:11:01 07/07/20 18 07/07/2018 CBC w/ diff red blood count 4.17 10_6/ uL 4.00-5 .40 Not Available [address] [place], [address], 07/07/2018 14:11:01 07/07/20 18 07/07/2018 CBC w/ diff hemoglobin 13.8 g/dL 12.0-1 5.0 Not Available [address] [place], [address], 07/07/2018 14:11:01 07/07/20 18 07/07/2018 CBC w/ diff hematocrit 42.5 % 35.0-4 9.0 Not Available [address] [place], [address], 07/07/2018 14:11:01 07/07/20 18 07/07/2018 CBC w/ diff mean corpuscular volume 101.9 fL 80.0-9 4.0 high Not Available [address] [place], [address], 07/07/2018 14:11:01 07/07/20 18 07/07/2018 CBC w/ diff mean corpuscular hemoglobin 33.1 pg 26.0-3 2.0 high Not Available [address] [place], [address], 07/07/2018 14:11:01 07/07/20 18 07/07/2018 CBC w/ diff mean corpuscular HGB conc 32.5 g/dL 32.0-3 6.0 Not Available [address] [place], [address], 07/07/2018 14:11:07/07/20 18 07/07/2018 CBC w/ diff red cell distribution width SD 50.6 fL 36.4-4 6.3 high Not Available [address], [address], 07/07/2018 14:11:07/07/20 18 07/07/2018 CBC w/ diff red cell distribution width CV 13.3 % 11.7-1 4.4 Not Available [address], [address], 07/07/2018 14:11:01 07/07/20 18 07/07/2018 CBC w/ diff platelet count 544 10_3/ uL 150-45 0 high Not Available [address], [address], 07/07/2018 14:11:07/07/20 18 07/07/2018 CBC w/ diff mean platelet volume 9.5 fL 7.54-1 1.24 Not Available [address], [address], 07/07/2018 14:11:07/07/20 18 07/07/2018 CBC w/ diff neutrophils % 52.2 % 50.0-7 0.0 Not Available [address] [place], [address], 07/07/2018 14:11:01 07/07/20 18 07/07/2018 CBC w/ diff immature granulocyte % 0.3 % 0.0-4. 3 Not Available [address] [place], [address], 07/07/2018 14:11:01 07/07/20 18 07/07/2018 CBC w/ diff lymphocytes % 35.0 % 18.0-4 2.0 Not Available [address] [place], [address], 07/07/2018 14:11:01 07/07/20 18 07/07/2018 CBC w/ diff monocytes % 8.8 % 2.0-11 .0 Not Available [address] [place], [address], 07/07/2018 14:11:07/07/20 18 07/07/2018 CBC w/ diff eosinophils % 3.0 % 1.0-3. 0 Not Available [address] [place], [address], 07/07/2018 14:11:07/07/20 18 07/07/2018 CBC w/ diff basophils % 0.7 % 0.0-2. 0 Not Available [address] [place], [address], 07/07/2018 14:11:07/07/20 18 07/07/2018 CBC w/ diff nucleated red blood cells % 0.0 % 0.0-0. 2 Not Available [address] [place], [address], 07/07/2018 14:11:01 07/07/20 18 07/07/2018 CBC w/ diff neutrophils absolute 4.69 10_3/ uL 1.56-6 .13 Not Available [address] [place], [address], 07/07/2018 14:11:07/07/20 18 07/07/2018 CBC w/ diff immature granulocyte absolute 0.03 10_3/ uL 0.00-0 .03 Not Available [address] [place], [address], 07/07/2018 14:11:01 07/07/20 18 07/07/2018 CBC w/ diff lymphocytes absolute 3.15 10_3/ uL 1.18-3 .74 Not Available [address] [place], [address], 07/07/2018 14:11:01 07/07/20 18 07/07/2018 CBC w/ diff monocytes absolute 0.79 10_3/ uL 0.24-0 .36 high Not Available [address] Thierry [place], [address], 07/07/2018 14:11:01 07/07/20 18 07/07/2018 CBC w/ diff eosinophils absolute 0.27 10_3/ uL 0.04-0 .36 Not Available [address] [place]ry [place], [address], 07/07/2018 14:11:01 07/07/20 18 07/07/2018 CBC w/ diff basophils absolute 0.06 10_3/ uL 0.01-0 .08 Not Available [address] [place], [address], 07/07/2018 14:11:01 07/07/20 18 07/07/2018 CBC w/ diff nucleated red blood cells abso 0.00 10_3/ uL 0.00-0 .01 Not Available [address], [place], [address], 07/07/2018 14:11:01 02/14/20 19 02/13/2019 CT, head, w/o contr ast No observ ation record ed. [email or web address] [facility] - Paper Orders Only 1 [facility] [place], [address], 02/14/2019 08:24:19 Result Notes None recorded. Problems Name Problem SNOMED Code Status Onset Date Resolution Date Notes Provider Name and Address Organization Details Recorded Time Dysfunctional uterine bleeding Active Erendira [place] null, [place] - [facility] 7 20:07:48 Dysmenorrhea 458764547 Active Erendira [place] null, [place] - [facility] 20:08:02 Obstructive sleep apnea syndrome 34143551 Active 2017 Jaimee Zenon null, [place] - [facility] 8 15:57:44 Degeneration of intervertebral disc 57161851 Active 2017 Jaimee Yarbrough null, [place] - [facility] 8 15:58:19 Spinal stenosis 02779485 Active 2017 Jaimee Sorianolsen null, [place] - [facility] 8 15:58:28 Mixed anxiety and depressive disorder 500950732 Active 2017 Jaimee Bergeronen null, [place] - [facility] 8 15:58:35 Morbid obesity 119601272 Active 2017 Jaimee Bergeronen null, [place] - [facility] 8 15:58:40 Long-term drug therapy Active 2017 Jaimeechary Yarbrough null, [place] - [facility] 8 15:58:59 Tobacco user 088618290 Active 2017 Jaimee Yarbrough null, [place] - [facility] 8 16:02:47 Macrocytosis 502748272 Active 2017 Maryse Bolivar MD [address] [place], [address], [place] - [facility] 8 15:31:15 Anxiety 91329857 Active 2017 Maryse Bolivar MD [address] [facility] [place], [address], [place] - [facility] 8 15:34:44 Problem Notes None recorded. Procedures Surgical History Date Name Laterality Status Provider Name and Address Organization Details Recorded Time 07/02/20 17 Date of Last Pap Smear completed Erendira [place] - [facility] 10/06/2017 20:22:27 07/02/20 17 Date of Last Mammogram completed Erendira [place] - [facility] 10/06/2017 20:23:43 11/01/19 13 Caesarean Section completed Erendira [place] - [facility] 10/06/2017 20:24:37 Total Hysterectomy completed Jaimee Yarbrough [facility] 04/14/2018 16:01:22 Removal of ovary(s) completed Jaimee Yarbrough [facility] 04/14/2018 16:03:13 Imaging Results Imaging Date Name Status LastModified by Organiz ation Details LastModified Time 02/13/2019 CT, head, w/o contrast completed [email or web address] [facility] - Paper Orders Only [address] , [place], [address], 02/14/2019 08:24:19 Procedure Notes None recorded. Medical Equipment None Reported. Allergies Allergen ID Allergen Name Allergen Category Reaction Reaction Severity Criticality Documentation Date Start Date Code Code System Note Provider Name and Address Organization Details Recorded Time 1323 acetamino phen / hydrocodo ne medicatio n Not available Not available Not available 10/06/2017 15353 2 RxNorm Erendira [facility] 7 20:09:15 1400 latex environme nt,medica tion Not available Not available Not available 10/07/2017 70656 91 RxNorm [facility] 7 14:35:52 Medications Name Sig Start Date Stop Date Status Note LastModified by Organization Details LastModified Time Wellbutrin SR 150 mg tablet, 12 hr sustained-r elease Take 1 tablet twice a day by oral route. 2017 active Not Available Not Available Not Avai lable alprazolam 0.5 mg tablet Take 1 tablet 3 times a day by oral route as needed. 2017 active Not Available Not Available Not Avai lable estradiol 1 mg tablet TAKE 1 TABLET BY MOUTH EVERY DAY active Not Available Not Available No t Available albuterol 90 mcg/actuati on aerosol inhaler Inhale 1 puff every 4 hours by inhalatio n route. active Not Available Not Available No t Available duloxetine 30 mg capsule,del ayed release Take 1 capsule(s ) twice a day by oral route. 2019 active Not Available Not Available Not Avai lable estradiol 1 mg po qd active Not Available Not Available No t Available Xanax 0.5 mg 04/14 completed Not Available Not Available Not Available gabapentin 04/14 completed Not Available Not Available Not Available Wellbutrin SR 04/14 completed Not Available Not Available Not Available duloxetine 04/14 completed Not Available Not Available Not Available Myrbetriq 25 mg tablet,exte nded release Take 1 tablet every day by oral route. 2018 active Not Available Not Available Not Avai lable Vitals Date Recorded Body height Body mass index (BMI) Body weight Oxygen saturation Oxygen saturation in Arterial blood by Pulse oximetry Heart rate Respiratory rate Systolic blood pressure Diastolic blood pressure Provider Name and Address Organization Details Last Updated DateTime 8 167.64 cm 42.2 kg/m2 735313. 05 g 99 % 99 % 84 /min 19 /min 136 mm[Hg] 89 mm[Hg] Daysi stephens [place] - [facility] 8 15:52:54 Date Recorded Body height Body mass index (BMI) Body weight Systolic blood pressure Diastolic blood pressure Provider Name and Address Organization Details Last Updated DateTime 10/28/2017 167.64 cm 44.2 kg/m2 557493.3 1 g 150 mm[Hg] 90 mm[Hg] Erendira Greene [place] - [facility] 7 12:40:16 Date Recorded Body height Body mass index (BMI) Body weight Heart rate Respiratory rate Oxygen saturation Oxygen saturation in Arterial blood by Pulse oximetry Systolic blood pressure Diastolic blood pressure Provider Name and Address Organization Details Last Updated DateTime 8 167.64 cm 41.1 kg/m2 928212. 62 g 75 /min 18 /min 98 % 98 % 132 mm[Hg] 84 mm[Hg] Arlette Archer [place] - [facility] 8 14:40:45 Date Recorded Body height Body mass index (BMI) Body weight Systolic blood pressure Diastolic blood pressure Provider Name and Address Organization Details Last Updated DateTime 05/01/2019 167.64 cm 40.9 kg/m2 406294.0 3 g 130 mm[Hg] 84 mm[Hg] Erika Lock [place] - [facility]NT [facility] 9 15:51:14 Date Recorded Body height Body mass index (BMI) Body weight Systolic blood pressure Diastolic blood pressure Provider Name and Address Organization Details Last Updated DateTime 10/07/2017 167.64 cm 41.6 kg/m2 160549.8 3 g 150 mm[Hg] 84 mm[Hg] Erendira Greene [facility] 7 14:35:39 Social History Question Answer Notes LastModified by Organizat ion Details LastModified Time Tobacco Smoking Status Current Every Day Smoker 1 pack per 2 weeks smoker Jaimee Yarbrough lux [facility] 04/14/2018 16:06:26 What Is Your Level Of Alcohol Consumption? Occasional Information not available 10/06/2017 Are You Currently Employed? No Information not available 04/14/2018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
--- OUTSIDE RECORDS SUMMARY | 2025-03-03 16:35 | XMS_ITS | Clinical Summary ---
Author Organization [facility] Address [address] [place] [address] [place] [address] Care Team Providers Care Culture Room Worker Name Role Phone Enrique Hardy MD Primary Care Provider [phone] Allergies Active Allergy Reactions Criticality Noted Date Comments Adhesive Tape-Silicones Rash Low 10/08/2020 Hydrocodone-Acetaminophen Hallucination, Nausea and Vomiting Low 10/14/2020 Latex Hives,Itching,Rash,Swelling High 10/14/20 20 [place] Anaphylaxis,Hives,It lori,R konstantin High 10/14/2020 Medications QUEtiapine (SEROquel) 50 mg tablet TK 1 T PO QD HS FOR 7 DAYS 0 Active oxyCODONE-aceta minophen (PERCOCET) 5-325 mg tablet TAKE 1 TABLET BY MOUTH EVERY 12 HOURS 0 Active methylPREDNISol one (MEDROL DOSPACK) 4 mg Tablets, Dose Pack FOLLOW PACKAGE DIRECTIONS 0 Active LISINOPRIL, BULK, MISC 0 Active DULoxetine (CYMBALTA) 30 mg Capsule, Delayed Release(E.C.) Take 30 mg by mouth daily. Active busPIRone (BUSPAR) 10 mg tablet Take 10 mg by mouth 3 times daily. Active cyclobenzaprine (FLEXERIL) 10 mg tablet Take 10 mg by mouth 3 times daily as needed for Spasm. Active albuterol sulfate 90 mcg/Actuation inhaler Take 2 Puffs by inhalation every 6 hours as needed for Shortness of Breath. Active Active Problems Problem Noted Date Diagnosed Date Reactive thrombocytosis 10/14/2020 Leukocytosis (leucocytosis) 10/14/2020 Family History Medical History Relation Name Comments Healthy Brother Cancer Mother Healthy Son 1 Healthy Son 2 Healthy Son 3 Healthy Son 4 Relation Name Status Comments Brother Alive Father Mother OVARIAN Son 1 Alive Son 2 Alive Son 3 Alive Son 4 Alive Social History Tobacco Use Types Packs/Day Years Used Date Smoking Tobacco: Every Day Cigarettes 0.5 25 Smokeless Tobacco: Never Alcohol Use Standard Drinks/Week Comments Yes 0 (1 standard drink = 0.6 oz pur e alcohol) OCCASSIONLY Comments No Sex and Gender Information Value Date Recorded Sex Assigned at Not on file Legal Sex Female 10:14 AM [employer]ILD [employer]IST Gender Identity Not on file Sexual Orientation Not on file Last Filed Vital Signs Vital Sign Reading Time Taken Comments Blood Pressure 137/90 09/02/2021 11:45 AM CDT Pulse 75 09/02/2021 11:45 AM CDT Temperature 36.7 C (98.1 F) 09/02/2021 11:45 AM CDT Respiratory Rate - - Oxygen Saturation 96% 09/02/2021 11: 45 AM CDT Inhaled Oxygen Concentration - - Weight 128.5 kg (283 lb 4.8 oz) 021 11:45 AM CDT Height 167.6 cm (5' 6 ) 09/02/2021 11:4 5 AM CDT Body Mass Index 45.73 09/02/2021 11:45 AM CDT Plan of Treatment Health Maintenance Due Date Last Done Comments DTAP/TDAP/TD VACCINES (1 - Tdap) 1993 HEPATITIS B VACCINES (1 of 3 - 19+ 3-dose series) 07/02 HPV/Cotest (21-29) 1995 CERVICAL CANCER SCREENING 2004 HPV/Cotest (30-65) 2004 PAP SMEAR 2004 BREAST CANCER SCREENING 2014 COLORECTAL SCREENING 2019 Colorectal Cancer Screening 2019 FIT-DNA Q 3 years 2019 FIT/FOBT Q 1 year 2019 Flex Sig/CT Colonography Q 5 years 2019 INFLUENZA VACCINE (#1) 2024 ZOSTER VACCINE (1 of 2) 2024 [address] [place] [place] [address] [place] [address] Care Teams Culture Room Worker Relationship Specialty Start Date End Date Enrique Hardy MD [address] [place] [id number] PCP - General Emergency Medicine 09/30/20
--- OUTSIDE RECORDS SUMMARY | 2025-03-03 16:36 | XMS_ITS | Patient Health Record ---
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 Name Role Phone Britta Cueva Primary Care Provider Nevaeh Harley Unavailable [phone] HemLynette bloom Unavailable [phone] Migration, Provider Unavailable Unavailable Allergies Allergen (clinical drug ingredient) Drug/Non Drug Allergy documented on EMR Reaction Allergy Type Onset Date Status WALNUT (uncoded) Unknown Allergy 01/04/2024 Ac tive Vicodin Unknown Drug Allergy 01/04/2024 Active Latex Latex Unknown Allergy 01/04/2024 Active Reason For Referral Reason Eval and treat Diagnosis 1 Anxiety disorder, un specified (F41.9) Diagnosis 2 Bipolar disorder, cu rrent episode depressed, mild (F31.31) Referred Organization [facility] [employer] Referred Provider Nevaeh Emmanuel Referred Address [address],[place], [place],[address], Referral Priority Routine Medications Medication SIG (Take, Route, Frequency, Duration) Notes Start Date End Date Status Estradiol 1 MG Oral 03/14/2024 Not- Taking Indomethacin 50 MG Oral 03/14/2024 Not-Taking Meloxicam 15 MG Oral PRN 03/14/2024 Not -Taking QUEtiapine Fumarate 400 MG 1 tablet at bedtime Orally BEDTIME for 90 days Active Cyclobenzaprine HCl 10 MG Oral PRN 03/14/2024 Not-Taking Atomoxetine HCl 40 MG 1 capsule in the morning Oral Once a day for 90 days 04/18/2025 Active Vitamin D3 50 MCG (1999 [place]) TAKE 50 MCG BY MOUTH DAILY. Oral for 90 Days Active Lyrica 75 MG 1 capsule Orally Once a day Not-Taking buPROPion HCl ER (XL) 150 MG 1 tablet in the morning Orally Once a day for 90 days Active oxyCODONE-Acetaminophen 5-325 MG Oral 03/14/2024 Not-Taking hydroCHLOROthiazide 25 MG TAKE 1 TABLET BY MOUTH EVERY DAY IN THE MORNING Oral for 90 Days Active Naproxen 500 MG Oral 03/14/2024 Not -Taking ProAir HFA 108 (90 Base) MCG/ACT Inhalation 03/14/2024 Active Atomoxetine HCl 25 MG Oral 03/14/2024 Not-Taking Lisinopril 5 MG TAKE 1 TABLET (5 MG TOTAL) BY MOUTH DAILY. Oral for 90 Days Active Lisinopril 10 MG Oral 03/14/2024 No t-Taking DULoxetine HCl 30 MG 1 capsule every evening Orally Once a day for 90 days Active DULoxetine HCl 30 MG Oral 03/14/2024 Not-Taking Immunizations Vaccine Route Administration Date Status Comme nts Influenza, unspecified formulation Unknown 10/08/2023 A dministered Pfizer Biontech Covid-19 Vac cine 2nd dose Unknown 01/31/2021 Administered Pfizer Biontech Covid-19 Vac cine 2nd dose Unknown 02/22/2021 Administered Pneumococcal conjugate PCV 7 Unknown 10/08/2023 Adminis tered Tdap Unknown 10/08/2023 Administered Social History Tobacco Use: Social History Observation Description Date Details (start date - stop date) Former Smoker NA - NA Sex Assigned At : Social History Observation Description Sex Assigned At Female Household Question Answer Notes Marital status: Number of adults in household: 4 Number of children in household: 1 has 3 kids Level of education: not finished college Tobacco Control (Standard) Question Answer Notes Tobacco use: Former smoker How often do you smoke cigarettes? Every day How many cigarettes a day do you smoke? 11-20 How soon after you wake up do you smoke your fir st cigarette? Within 5 minutes Are you interested in quitting? Ready to quit How long has it been since you last smoked? Less than 1 month AUDIT-C (Standard) Question Answer Notes Did you have a drink containing alcohol in the p ast year? 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, predominantly inattentive type (F90.0) 01/04/20 24 Active confirmed Problem Screening for cardiovascular system disease (423750162) Encounter for screening for cardiovascular disorders (Z13.6) Active confirmed Problem Long-term current use of drug therapy (884471235) Other fpc (current) drug therapy (Z79.899) 12/16/19 Active confirmed Problem Depression Screening (553945042) Encounter for screening for depression (Z13.31) Active confirmed Problem 38559123 Primary hypertension (I10) Active confirmed Problem 597933744 Marijuana use (F12.90) Active confirmed Problem 502790293 Bipolar disorder with moderate depression (F31.32) Active confirmed Problem 413309415 Complex posttraumatic stress disorder (F43.10) Active confirmed Problem Tobacco use (290891507) Nicotine use (Z72.0) Active confirmed Vital Signs Heart Rate 85 /min 01/18/2025 Height-cm 167.64 cm 01/18/2025 Blood pressure diastolic 76 mm Hg 01/18/2025 Weight-kg 139.25 kg 01/18/2025 Height 66.00 in 01/18/2025 Blood pressure systolic 118 mm Hg 01/18/2025 Weight 307.0 lbs 01/18/2025 BMI 49.55 kg/m2 01/18/2025 Encounters Encounter Location Date Provider Diagnosis [facility] [address] [place] [address] 09/06/2024 Lynette Patrick Complex posttraumati c stress disorder F43.10 ; Attention-deficit hyperactivity disorder, predominantly inattentive type F90.0 ; Bipolar disorder, current episode depressed, mild F31.31 and Anxiety disorder, unspecified F41.9 [facility] [address] [place] [address] 03/14/2024 Nevaeh Emmanuel Attention-deficit hyperactivity disorder, combined type F90.2 ; Generalized anxiety disorder F41.1 ; Nicotine dependence, unspecified, uncomplicated F17.200 ; Bipolar disorder, current episode depressed, mild F31.31 and Anxiety disorder, unspecified F41.9 [facility], [facility] [address] [facility] [address] [place] [address] 03/14/2024 Lynette Hemann [facility], [facility] [address] [facility] [address] [place] [address] 05/03/2024 Lynette Hemann Generalized anxiety disorder F41.1 ; Attention-deficit hyperactivity disorder, predominantly inattentive type F90.0 ; Complex posttraumatic stress disorder F43.10 and Bipolar disorder, current episode depressed, mild F31.31 [facility], [facility] [address] [facility] [address] [place] [address] 05/17/2024 Lynette Hemann Complex posttraumati c stress disorder F43.10 ; Attention-deficit hyperactivity disorder, predominantly inattentive type F90.0 and Bipolar disorder, current episode depressed, mild F31.31 [facility] [address] [facility] [address] [place] [address] 05/24/2024 Lynette Hemann Complex posttraumati c stress disorder F43.10 ; Attention-deficit hyperactivity disorder, predominantly inattentive type F90.0 and Bipolar disorder, current episode depressed, mild F31.31 [facility], [facility] [address] [facility] [address] [place] [address] 06/07/2024 Lynette Hemann Complex posttraumati c stress disorder F43.10 ; Attention-deficit hyperactivity disorder, predominantly inattentive type F90.0 and Bipolar disorder, current episode depressed, mild F31.31 [facility] [address] [place] [address] 06/15/2024 Lynette Hemann Complex posttraumati c stress disorder F43.10 ; Attention-deficit hyperactivity disorder, predominantly inattentive type F90.0 and Bipolar disorder, current episode depressed, mild F31.31 [facility], [facility] [address] [place] [address] 06/21/2024 Lynette Hemann Complex posttraumati c stress disorder F43.10 ; Attention-deficit hyperactivity disorder, predominantly inattentive type F90.0 and Bipolar disorder, current episode depressed, mild F31.31 [facility] [employer] [place], [facility] [address] [place] [address] 06/28/2024 Lynette Hemann Complex posttraumati c stress disorder F43.10 ; Attention-deficit hyperactivity disorder, predominantly inattentive type F90.0 and Bipolar disorder, current episode depressed, mild F31.31 [facility] [employer] [place], [facility] [address] [place] [address] 07/13/2024 Lynette Hemann Complex posttraumati c stress disorder F43.10 ; Attention-deficit hyperactivity disorder, predominantly inattentive type F90.0 and Bipolar disorder, current episode depressed, mild F31.31 [facility], [facility] [address] [place] [address] 07/27/2024 Lynette Hemann Complex posttraumati c stress disorder F43.10 ; Attention-deficit hyperactivity disorder, predominantly inattentive type F90.0 and Bipolar disorder, current episode depressed, mild F31.31 [facility] [employer] [facility] [place], [facility] [address] [place] [address] 08/09/2024 Lynette Hemann Complex posttraumati c stress disorder F43.10 ; Attention-deficit hyperactivity disorder, predominantly inattentive type F90.0 and Bipolar disorder, current episode depressed, mild F31.31 [facility] [employer] [place], [facility] [address] [place] [address] 08/24/2024 Lynette Hemann Complex posttraumati c stress disorder F43.10 ; Attention-deficit hyperactivity disorder, predominantly inattentive type F90.0 and Bipolar disorder, current episode depressed, mild F31.31 [facility] [employer] [facility] [place], [facility] [address] [place] [address] 08/24/2024 Nevaeh Emmanuel Bipolar disorder, current episode depressed, mild F31.31 ; Generalized anxiety disorder F41.1 ; Attention-deficit hyperactivity disorder, predominantly inattentive type F90.0 ; Primary insomnia F51.01 ; Complex posttraumatic stress disorder F43.10 and Other terminal clerk (current) drug therapy Z79.899 [facility] [employer] [facility] [place], [facility] [address] [place] [address] 09/20/2024 Lynette Hemann Complex posttraumati c stress disorder F43.10 ; Attention-deficit hyperactivity disorder, predominantly inattentive type F90.0 ; Bipolar disorder, current episode depressed, mild F31.31 and Anxiety disorder, unspecified F41.9 [facility], [facility] [address] [address] 10/04/2024 Lynette Hemann Complex posttraumati c stress disorder F43.10 ; Attention-deficit hyperactivity disorder, predominantly inattentive type F90.0 ; Bipolar disorder, current episode depressed, mild F31.31 and Anxiety disorder, unspecified F41.9 [facility] [address] [address] 10/18/2024 Lynette Hemann Attention-deficit hyperactivity disorder, predominantly inattentive type F90.0 ; Complex posttraumatic stress disorder F43.10 ; Bipolar disorder, current episode depressed, mild F31.31 and Anxiety disorder, unspecified F41.9 [facility] [address] [address] 11/03/2024 Lynette Hemann Attention-deficit hyperactivity disorder, predominantly inattentive type F90.0 ; Complex posttraumatic stress disorder F43.10 ; Bipolar disorder, current episode depressed, mild F31.31 and Anxiety disorder, unspecified F41.9 [facility] [address] [address] 11/15/2024 Lynette Hemann Attention-deficit hyperactivity disorder, predominantly inattentive type F90.0 ; Complex posttraumatic stress disorder F43.10 ; Bipolar disorder, current episode depressed, mild F31.31 and Anxiety disorder, unspecified F41.9 [facility], [facility] [address] [address] 11/16/2024 Nevaeh Emmanuel Generalized anxiety disorder F41.1 ; Bipolar disorder with moderate depression F31.32 ; Attention-deficit hyperactivity disorder, predominantly inattentive type F90.0 ; Primary insomnia F51.01 ; Complex posttraumatic stress disorder F43.10 ; Other terminal clerk (current) drug therapy Z79.899 ; Primary hypertension I10 ; Tobacco user Z72.0 and Marijuana use F12.90 [facility] [employer] [place], [facility] [address] [address] 11/29/2024 Lynette Hemann Attention-deficit hyperactivity disorder, predominantly inattentive type F90.0 ; Complex posttraumatic stress disorder F43.10 ; Bipolar disorder, current episode depressed, mild F31.31 and Anxiety disorder, unspecified F41.9 [facility] [employer] [facility] [address] [place] [address] 12/07/2024 Nevaeh Emmanuel Generalized anxiety disorder F41.1 ; Bipolar disorder with moderate depression F31.32 ; Attention-deficit hyperactivity disorder, predominantly inattentive type F90.0 ; Primary insomnia F51.01 ; Complex posttraumatic stress disorder F43.10 ; Other fpc (current) drug therapy Z79.899 ; Primary hypertension I10 ; Tobacco user Z72.0 and Marijuana use F12.90 [facility] [employer] [place] [address] [facility] [address] [place] [address] 12/13/2024 Lynette Hemann Attention-deficit hyperactivity disorder, predominantly inattentive type F90.0 ; Complex posttraumatic stress disorder F43.10 ; Bipolar disorder, current episode depressed, mild F31.31 and Anxiety disorder, unspecified F41.9 [facility] [employer] [place] [id number] [facility] [address] [facility] [address] [place] [address] 12/27/2024 Lynette Hemann Attention-deficit hyperactivity disorder, predominantly inattentive type F90.0 ; Complex posttraumatic stress disorder F43.10 ; Bipolar disorder, current episode depressed, mild F31.31 and Anxiety disorder, unspecified F41.9 [facility] [employer] [place] [address] [facility] [address] [place] [address] 01/10/2025 Lynette Hemann Attention-deficit hyperactivity disorder, predominantly inattentive type F90.0 ; Complex posttraumatic stress disorder F43.10 ; Bipolar disorder, current episode depressed, mild F31.31 ; Anxiety disorder, unspecified F41.9 and Nicotine use Z72.0 [facility] [employer] [place] [address] [facility] [address] [place] [address] 01/18/2025 Nevaeh Emmanuel Encounter for screening for depression Z13.31 ; Encounter for screening for cardiovascular disorders Z13.6 ; Generalized anxiety disorder F41.1 ; Attention-deficit hyperactivity disorder, predominantly inattentive type F90.0 ; Bipolar disorder with moderate depression F31.32 ; Primary insomnia F51.01 ; Complex posttraumatic stress disorder F43.10 ; Other terminal clerk (current) drug therapy Z79.899 ; Primary hypertension I10 ; Tobacco user Z72.0 and Marijuana use F12.90 [place] [address] [address] 01/26/2025 Lynette Hemann Attention-deficit hyperactivity disorder, predominantly inattentive type F90.0 ; Complex posttraumatic stress disorder F43.10 ; Bipolar disorder, current episode depressed, mild F31.31 ; Anxiety disorder, unspecified F41.9 ; Nicotine use Z72.0 and Encounter for screening for depression Z13.31 [place] [address] [facility] [address] [address] 02/07/2025 Lynette Hemann Attention-deficit hyperactivity disorder, predominantly inattentive type F90.0 ; Complex posttraumatic stress disorder F43.10 and Bipolar disorder, current episode depressed, mild F31.[address] [address] 02/21/2025 Lynette Hemann Encounter for screening for depression Z13.31 ; Attention-deficit hyperactivity disorder, predominantly inattentive type F90.0 ; Bipolar disorder, current episode depressed, mild F31.31 and Complex posttraumatic stress disorder F43.10 [place] [address] [address] 03/13/2024 Provider Migration [address] [address] 03/14/2024 Provider Migration [address] [address] 03/18/2024 Provider Migration [place] [address] [address] 03/19/2024 Provider Migration [address] [address] 05/10/2024 Nevaeh Emmanuel Anxiety disorder, unspecified F41.9 Assessments Encounter Date Diagnosis (ICD Code) Assessment Notes Treatment Notes Treatment Clinical Notes Section Notes 05/10/2024 Anxiety disorder, unspecified (ICD-10 - F41.9) 05/03/2024 Generalized anxiety disorder (ICD-10 - F41.1) 05/03/2024 Attention-deficit hyperactivity disorder, predominantly inattentive type (ICD-10 - F90.0) 05/17/2024 Attention-deficit hyperactivity disorder, predominantly inattentive type (ICD-10 - F90.0) 05/17/2024 Complex posttraumatic stress disorder (ICD-10 - F43.10) 05/24/2024 Attention-deficit hyperactivity disorder, predominantly inattentive type (ICD-10 - F90.0) 05/24/2024 Complex posttraumatic stress disorder (ICD-10 - F43.10) 06/07/2024 Attention-deficit hyperactivity disorder, predominantly inattentive type (ICD-10 - F90.0) 06/07/2024 Complex posttraumatic stress disorder (ICD-10 - F43.10) 06/15/2024 Attention-deficit hyperactivity disorder, predominantly inattentive type (ICD-10 - F90.0) 06/15/2024 Complex posttraumatic stress disorder (ICD-10 - F43.10) 06/21/2024 Attention-deficit hyperactivity disorder, predominantly inattentive type (ICD-10 - F90.0) 06/21/2024 Complex posttraumatic stress disorder (ICD-10 - F43.10) 06/28/2024 Attention-deficit hyperactivity disorder, predominantly inattentive type (ICD-10 - F90.0) 06/28/2024 Complex posttraumatic stress disorder (ICD-10 - F43.10) 07/13/2024 Attention-deficit hyperactivity disorder, predominantly inattentive type (ICD-10 - F90.0) 07/13/2024 Complex posttraumatic stress disorder (ICD-10 - F43.10) 07/27/2024 Attention-deficit hyperactivity disorder, predominantly inattentive type (ICD-10 - F90.0) 07/27/2024 Complex posttraumatic stress disorder (ICD-10 - F43.10) 08/24/2024 Attention-deficit hyperactivity disorder, predominantly inattentive type (ICD-10 - F90.0) 08/24/2024 Complex posttraumatic stress disorder (ICD-10 - F43.10) 08/24/2024 Bipolar disorder, current episode depressed, mild (ICD-10 - F31.31) Bipolar Disorder: Care Instructions material was published, Learning About Movement Disorders From Antipsychotic Medicines material was published, Learning About Mood Disorders material was published, Learning About How to Get Help During a Mental Health Crisis material was published Presently taking Straterra 40 mg daily in am, Wellbutrin XL 150 MG DAILY in am, Seroquel 300 mg bedtime Bipolar- Wellbutrin XL 150 MG DAILY in am, Seroquel 300 mg bedtime AIMS= 0 08/24/24 Missing teeth Anxiety- therapy ADD- Straterra 40 mg daily in am Primary Insomnia PTSD- therapy labs 04/24 PCP obtain educated on all medications, benefits, side effects and risk, and educated on depression, anxiety, and ADHD, mood d/o and educated on compliance of medications, metabolic and movement d/o education appointment is, continue therapy discussion with patient about course of treatment and patient instructions. education on serotonin syndrome SSRI/SNRI side effects discussed including but not limited to, gastric upset, nausea, vomiting, diarrhea and/or constipation, weight changes, sexual side effects including loss of libido, increased suicidal thoughts/behavio rs in children and young adults, and serotonin syndrome. Patient educated on all medications including potential benefits, side effects, risks. Educated on proper dosing schedule and importance of compliance Second generation antipsychotics (SGAs) have metabolic syndrome issues with weight gain, increase in prolactin, increased waist circumference, increased lipids, and increased glucose. Thus routine monitoring of weight, metabolic labs, etc. is indicated. A general rank ordering of antipsychotics that have the greatest to the least risk of metabolic effects is olanzapine, quetiapine, risperidone, ziprasidone, and aripiprazole. However, weight gain can occur with all of these drugs and considerable variability exists among patients receiving the same drug regarding the risk of metabolic effects. Anti-psychotic agents not only increase the risk of metabolic disorder, they also increase the risk of CVA, akathisia, and movement disorders including EPS or tardive dyskinesia (more common with first generation antipsychotics) and more. Medication Management and Follow-Up - Plan: - Schedule follow-up appointments every 1-3 months to monitor the patient's response to the medication regimen. - Reinforce the importance of avoiding recreational drug use due to potential neurotoxicity and interactions with prescribed medications. 08/24/2024 Generalized anxiety disorder (ICD-10 - F41.1) Generalized Anxiety Disorder: Care Instructions material was published, Learning About Generalized Anxiety Disorder material was published, Learning About Anxiety Disorders material was published Presently taking Straterra 40 mg daily in am, Wellbutrin XL 150 MG DAILY in am, Seroquel 300 mg bedtime Bipolar- Wellbutrin XL 150 MG DAILY in am, Seroquel 300 mg bedtime AIMS= 0 08/24/24 Missing teeth Anxiety- therapy ADD- Straterra 40 mg daily in am Primary Insomnia PTSD- therapy labs 04/24 PCP obtain educated on all medications, benefits, side effects and risk, and educated on depression, anxiety, and ADHD, mood d/o and educated on compliance of medications, metabolic and movement d/o education appointment is, continue therapy discussion with patient about course of treatment and patient instructions. education on serotonin syndrome SSRI/SNRI side effects discussed including but not limited to, gastric upset, nausea, vomiting, diarrhea and/or constipation, weight changes, sexual side effects including loss of libido, increased suicidal thoughts/behavio rs in children and young adults, and serotonin syndrome. Patient educated on all medications including potential benefits, side effects, risks. Educated on proper dosing schedule and importance of compliance Second generation antipsychotics (SGAs) have metabolic syndrome issues with weight gain, increase in prolactin, increased waist circumference, increased lipids, and increased glucose. Thus routine monitoring of weight, metabolic labs, etc. is indicated. A general rank ordering of antipsychotics that have the greatest to the least risk of metabolic effects is olanzapine, quetiapine, risperidone, ziprasidone, and aripiprazole. However, weight gain can occur with all of these drugs and considerable variability exists among patients receiving the same drug regarding the risk of metabolic effects. Anti-psychotic agents not only increase the risk of metabolic disorder, they also increase the risk of CVA, akathisia, and movement disorders including EPS or tardive dyskinesia (more common with first generation antipsychotics) and more. Medication Management and Follow-Up - Plan: - Schedule follow-up appointments every 1-3 months to monitor the patient's response to the medication regimen. - Reinforce the importance of avoiding recreational drug use due to potential neurotoxicity and interactions with prescribed medications. 08/09/2024 Attention-deficit hyperactivity disorder, predominantly inattentive type (ICD-10 - F90.0) 08/09/2024 Complex posttraumatic stress disorder (ICD-10 - F43.10) 09/06/2024 Attention-deficit hyperactivity disorder, predominantly inattentive type (ICD-10 - F90.0) 09/06/2024 Complex posttraumatic stress disorder (ICD-10 - F43.10) 09/20/2024 Attention-deficit hyperactivity disorder, predominantly inattentive type (ICD-10 - F90.0) 09/20/2024 Complex posttraumatic stress disorder (ICD-10 - F43.10) 10/04/2024 Attention-deficit hyperactivity disorder, predominantly inattentive type (ICD-10 - F90.0) 10/04/2024 Complex posttraumatic stress disorder (ICD-10 - F43.10) 10/18/2024 Attention-deficit hyperactivity disorder, predominantly inattentive type (ICD-10 - F90.0) 10/18/2024 Complex posttraumatic stress disorder (ICD-10 - F43.10) 11/03/2024 Attention-deficit hyperactivity disorder, predominantly inattentive type (ICD-10 - F90.0) 11/03/2024 Complex posttraumatic stress disorder (ICD-10 - F43.10) 11/15/2024 Attention-deficit hyperactivity disorder, predominantly inattentive type (ICD-10 - F90.0) 11/15/2024 Complex posttraumatic stress disorder (ICD-10 - F43.10) 11/16/2024 Generalized anxiety disorder (ICD-10 - F41.1) Generalized Anxiety Disorder: Care Instructions material was published, Learning About Generalized Anxiety Disorder material was published, Learning About Anxiety Disorders material was published, Generalized Anxiety Disorder: Care Instructions material was published, Learning About Generalized Anxiety Disorder material was published, Learning About Anxiety Disorders material was published 1. Bipolar- having increase depression and sleep issues Wellbutrin XL 150 MG DAILY in am, discuss and educated on Cymbalta (good response in past) for depression and anxiety and also help her chronic pain, will see how increase Seroquel does until next visit then re-address Cymbalta Increase Seroquel 400 mg bedtime AIMS= 0 08/24/24 Missing teeth 2.Anxiety- therapy 3. ADD- Straterra 40 mg daily in am 4. Primary Insomnia- sleep hygiene on Seroquel will also help sleep 5.PTSD- therapy labs 04/24 PCP obtain 6. tobacco use Do not smoke. Nicotine and other chemicals in cigarettes and cigars can cause lung damage. Ask your healthcare provider for information if you currently smoke and need help to quit. E-cigarettes or smokeless tobacco still contain nicotine. Talk to your healthcare provider before you use these products. education on decrease to stopping nicotine products and stop smoking hotline given 109-Quit - Yes [place] Tobacco Quitline Call a Smoking Quitline The [employer] [place] Smoking Quitline, (1-656-83N-QUIT) Smokefree.gov, which connects you with your State's Quitline, (6-955-DXKSBQJ) Veterans Smoking Quitline, (3-495-XEAQVII) 8. Cannabis use Recommend decrease/stop cannabis use as it can negatively impact mood, motivation, anxiety, sleep, focus/concentrat ion/memory (vigilance, elasticity, processing and attention); can also contribute to development of psychosis. http_s://www.nim h.nih.gov/health /topics/mental-h ealth-medication s http_s://www.nam i.org/About-Ment al-Illness/Treat ments/Mental-Hea lth-Medications Recommend decrease/stop cannabis use as it may be negatively impacting mood, motivation, anxiety, sleep, focus; can also contribute to development of psychosis Cannabis/marijua na information: http_s://gely.ni h.gov/publicatio ns/drugfacts/can nabis-marijuana http_s://www.[employer]/can oqdwo-kcp-grlpnk ly-eqoauljie-srm d/ 8. HTN on B/P RX and see PCP educated on healthy b/p 120/80 monitor b/p at home refer to PCP, Urgent care/ER heart healthy diet and excise limit salt intake limit soda intake and caffiene increase water educated on all medications, benefits, side effects and risk, and educated on depression, anxiety, and ADHD, mood d/o and educated on compliance of medications, metabolic and movement d/o education appointment is, continue therapy discussion with patient about course of treatment and patient instructions. education on serotonin syndrome SSRI/SNRI side effects discussed including but not limited to, gastric upset, nausea, vomiting, diarrhea and/or constipation, weight changes, sexual side effects including loss of libido, increased suicidal thoughts/behavio rs in children and young adults, and serotonin syndrome. Patient educated on all medications including potential benefits, side effects, risks. Educated on proper dosing schedule and importance of compliance Second generation antipsychotics (SGAs) have metabolic syndrome issues with weight gain, increase in prolactin, increased waist circumference, increased lipids, and increased glucose. Thus routine monitoring of weight, metabolic labs, etc. is indicated. A general rank ordering of antipsychotics that have the greatest to the least risk of metabolic effects is olanzapine, quetiapine, risperidone, ziprasidone, and aripiprazole. However, weight gain can occur with all of these drugs and considerable variability exists among patients receiving the same drug regarding the risk of metabolic effects. Anti-psychotic agents not only increase the risk of metabolic disorder, they also increase the risk of CVA, akathisia, and movement disorders including EPS or tardive dyskinesia (more common with first generation antipsychotics) and more. Medication Management and Follow-Up - Plan: - Schedule follow-up appointments every 1-3 months to monitor the patient's response to the medication regimen. - Reinforce the importance of avoiding recreational drug use due to potential neurotoxicity and interactions with prescribed medications. 11/16/2024 Bipolar disorder with moderate depression (ICD-10 - F31.32) 1. Bipolar- having increase depression and sleep issues Wellbutrin XL 150 MG DAILY in am, discuss and educated on Cymbalta (good response in past) for depression and anxiety and also help her chronic pain, will see how increase Seroquel does until next visit then re-address Cymbalta Increase Seroquel 400 mg bedtime AIMS= 0 08/24/24 Missing teeth 2.Anxiety- therapy 3. ADD- Straterra 40 mg daily in am 4. Primary Insomnia- sleep hygiene on Seroquel will also help sleep 5.PTSD- therapy labs 04/24 PCP obtain 6. tobacco use Do not smoke. Nicotine and other chemicals in cigarettes and cigars can cause lung damage. Ask your healthcare provider for information if you currently smoke and need help to quit. E-cigarettes or smokeless tobacco still contain nicotine. Talk to your healthcare provider before you use these products. education on decrease to stopping nicotine products and stop smoking hotline given -Quit - Yes [place] Tobacco Quitline Call a Smoking Quitline The [employer] [place]'s Smoking Quitline, (7-073-44X-QUIT) Smokefree.gov, which connects you with your State's Quitline, (4-358-DNYHUEL) Veterans Smoking Quitline, (1-355-XFMILLI) 8. Cannabis use Recommend decrease/stop cannabis use as it can negatively impact mood, motivation, anxiety, sleep, focus/concentrat ion/memory (vigilance, elasticity, processing and attention); can also contribute to development of psychosis. http_s://www.nim h.nih.gov/health /topics/mental-h ealth-medication s http_s://www.nam i.org/About-Ment al-Illness/Treat ments/Mental-Hea lth-Medications Recommend decrease/stop cannabis use as it may be negatively impacting mood, motivation, anxiety, sleep, focus; can also contribute to development of psychosis Cannabis/marijua na information: http_s://gely.ni h.gov/publicatio ns/drugfacts/can nabis-marijuana http_s://www.[employer]/can yysap-cld-cenesk pj-qoydyvttf-zxt d 8. HTN on B/P RX and see PCP educated on healthy b/p 120/80 monitor b/p at home refer to PCP, Urgent care/ER heart healthy diet and excise limit salt intake limit soda intake and caffiene increase water educated on all medications, benefits, side effects and risk, and educated on depression, anxiety, and ADHD, mood d/o and educated on compliance of medications, metabolic and movement d/o education appointment is, continue therapy discussion with patient about course of treatment and patient instructions. education on serotonin syndrome SSRI/SNRI side effects discussed including but not limited to, gastric upset, nausea, vomiting, diarrhea and/or constipation, weight changes, sexual side effects including loss of libido, increased suicidal thoughts/behavio rs in children and young adults, and serotonin syndrome. Patient educated on all medications including potential benefits, side effects, risks. Educated on proper dosing schedule and importance of compliance Second generation antipsychotics (SGAs) have metabolic syndrome issues with weight gain, increase in prolactin, increased waist circumference, increased lipids, and increased glucose. Thus routine monitoring of weight, metabolic labs, etc. is indicated. A general rank ordering of antipsychotics that have the greatest to the least risk of metabolic effects is olanzapine, quetiapine, risperidone, ziprasidone, and aripiprazole. However, weight gain can occur with all of these drugs and considerable variability exists among patients receiving the same drug regarding the risk of metabolic effects. Anti-psychotic agents not only increase the risk of metabolic disorder, they also increase the risk of CVA, akathisia, and movement disorders including EPS or tardive dyskinesia (more common with first generation antipsychotics) and more. Medication Management and Follow-Up - Plan: - Schedule follow-up appointments every 1-3 months to monitor the patient's response to the medication regimen. - Reinforce the importance of avoiding recreational drug use due to potential neurotoxicity and interactions with prescribed medications. 11/29/2024 Attention-deficit hyperactivity disorder, predominantly inattentive type (ICD-10 - F90.0) 11/29/2024 Complex posttraumatic stress disorder (ICD-10 - F43.10) 12/07/2024 Generalized anxiety disorder (ICD-10 - F41.1) Generalized Anxiety Disorder: Care Instructions material was published, Learning About Generalized Anxiety Disorder material was published, Learning About Anxiety Disorders material was published, Generalized Anxiety Disorder: Care Instructions material was published, Learning About Generalized Anxiety Disorder material was published, Learning About Anxiety Disorders material was published 1. Bipolar- depression and sleep issues Wellbutrin XL 150 MG DAILY in am,- MAY STOP IN NEAR FUTURE Add Cymbalta 30 mg daily- (patient reported tolerated 30 mg BID in past - nausea at 60 mg PO QD) patient has depression and anxiety with political situational and in therapy will work on coping skills, discuss and educated on Cymbalta (good response in past 30 mg BID dose) for depression and anxiety and also help her chronic pain, Seroquel 400 mg bedtime AIMS= 0 08/24/24 Missing teeth 2.Anxiety- therapy 3. ADD- Straterra 40 mg daily in am 4. Primary Insomnia- sleep hygiene on Seroquel will also help sleep 5.PTSD- therapy labs 04/24 PCP obtain 6. tobacco use Do not smoke. Nicotine and other chemicals in cigarettes and cigars can cause lung damage. Ask your healthcare provider for information if you currently smoke and need help to quit. E-cigarettes or smokeless tobacco still contain nicotine. Talk to your healthcare provider before you use these products. education on decrease to stopping nicotine products and stop smoking hotline given Quit - Yes [place] Tobacco Quitline Call a Smoking Quitline The [employer] [place]'s Smoking Quitline, (4-950-90R-QUIT) Smokefree.gov, which connects you with your State's Quitline, (4-797-AHFIPSO) Veterans Smoking Quitline, (7-641-EUAPOUB) 8. Cannabis use Recommend decrease/stop cannabis use as it can negatively impact mood, motivation, anxiety, sleep, focus/concentrat ion/memory (vigilance, elasticity, processing and attention); can also contribute to development of psychosis. http_s://www.nim h.nih.gov/health /topics/mental-h ealth-medication s http_s://www.nam i.org/About-Ment al-Illness/Treat ments/Mental-Hea lth-Medications Recommend decrease/stop cannabis use as it may be negatively impacting mood, motivation, anxiety, sleep, focus; can also contribute to development of psychosis Cannabis/marijua na information: http_s://gely.ni h.gov/publicatio ns/drugfacts/can nabis-marijuana http_s://www.[employer]/can olevl-lws-mnxqoj nj-qsrbixgrc-rdt d/ 8. HTN on B/P RX and see PCP educated on healthy b/p 120/80 monitor b/p at home refer to PCP, Urgent care/ER heart healthy diet and excise limit salt intake limit soda intake and caffiene increase water educated on all medications, benefits, side effects and risk, and educated on depression, anxiety, and ADHD, mood d/o and educated on compliance of medications, metabolic and movement d/o education appointment is, continue therapy discussion with patient about course of treatment and patient instructions. education on serotonin syndrome SSRI/SNRI side effects discussed including but not limited to, gastric upset, nausea, vomiting, diarrhea and/or constipation, weight changes, sexual side effects including loss of libido, increased suicidal thoughts/behavio rs in children and young adults, and serotonin syndrome. Patient educated on all medications including potential benefits, side effects, risks. Educated on proper dosing schedule and importance of compliance Second generation antipsychotics (SGAs) have metabolic syndrome issues with weight gain, increase in prolactin, increased waist circumference, increased lipids, and increased glucose. Thus routine monitoring of weight, metabolic labs, etc. is indicated. A general rank ordering of antipsychotics that have the greatest to the least risk of metabolic effects is olanzapine, quetiapine, risperidone, ziprasidone, and aripiprazole. However, weight gain can occur with all of these drugs and considerable variability exists among patients receiving the same drug regarding the risk of metabolic effects. Anti-psychotic agents not only increase the risk of metabolic disorder, they also increase the risk of CVA, akathisia, and movement disorders including EPS or tardive dyskinesia (more common with first generation antipsychotics) and more. Medication Management and Follow-Up - Plan: - Schedule follow-up appointments every 1-3 months to monitor the patient's response to the medication regimen. - Reinforce the importance of avoiding recreational drug use due to potential neurotoxicity and interactions with prescribed medications. 12/13/2024 Attention-deficit hyperactivity disorder, predominantly inattentive type (ICD-10 - F90.0) 12/13/2024 Complex posttraumatic stress disorder (ICD-10 - F43.10) 12/27/2024 Attention-deficit hyperactivity disorder, predominantly inattentive type (ICD-10 - F90.0) 12/27/2024 Complex posttraumatic stress disorder (ICD-10 - F43.10) 01/10/2025 Attention-deficit hyperactivity disorder, predominantly inattentive type (ICD-10 - F90.0) 01/10/2025 Complex posttraumatic stress disorder (ICD-10 - F43.10) 01/18/2025 Encounter for screening for depression (ICD-10 - Z13.31) 1. Bipolar- depression and sleep issues Wellbutrin XL 150 MG DAILY in am,- MAY STOP IN NEAR FUTURE Cymbalta 30 mg daily- (patient reported tolerated 30 mg BID in past - nausea at 60 mg PO QD) patient has depression and anxiety with political situational and in therapy will work on coping skills, discuss and educated on Cymbalta (good response in past 30 mg BID dose) for depression and anxiety and also help her chronic pain, Seroquel 400 mg bedtime AIMS= 0 08/24/24 Missing teeth 2.Anxiety- therapy 3. ADD- Straterra 40 mg daily in am 4. Primary Insomnia- sleep hygiene on Seroquel will also help sleep 5.PTSD- therapy labs 04/24 PCP obtain 6. tobacco use Do not smoke. Nicotine and other chemicals in cigarettes and cigars can cause lung damage. Ask your healthcare provider for information if you currently smoke and need help to quit. E-cigarettes or smokeless tobacco still contain nicotine. Talk to your healthcare provider before you use these products. education on decrease to stopping nicotine products and stop smoking hotline given Quit - Yes [place] Tobacco Quitline Call a Smoking Quitline The [employer] [place]'s Smoking Quitline, (6-864-48Z-QUIT) Smokefree.gov, which connects you with your State's Quitline, (3-623-DQLGZVT) Veterans Smoking Quitline, (8-844-YOUNHFV) 8. Cannabis use Recommend decrease/stop cannabis use as it can negatively impact mood, motivation, anxiety, sleep, focus/concentrat ion/memory (vigilance, elasticity, processing and attention); can also contribute to development of psychosis. http_s://www.nim h.nih.gov/health /topics/mental-h ealth-medication s http_s://www.nam i.org/About-Ment al-Illness/Treat ments/Mental-Hea lth-Medications Recommend decrease/stop cannabis use as it may be negatively impacting mood, motivation, anxiety, sleep, focus; can also contribute to development of psychosis Cannabis/marijua na information: http_s://gely.ni h.gov/publicatio ns/drugfacts/can nabis-marijuana http_s://www.[employer]/can tqfyk-mkk-isbywn bm-twtvlqjxl-mty d/ 8. HTN on B/P RX and see PCP educated on healthy b/p 120/80 monitor b/p at home refer to PCP, Urgent care/ER heart healthy diet and excise limit salt intake limit soda intake and caffiene increase water educated on all medications, benefits, side effects and risk, and educated on depression, anxiety, and ADHD, mood d/o and educated on compliance of medications, metabolic and movement d/o education appointment is, continue therapy discussion with patient about course of treatment and patient instructions. education on serotonin syndrome SSRI/SNRI side effects discussed including but not limited to, gastric upset, nausea, vomiting, diarrhea and/or constipation, weight changes, sexual side effects including loss of libido, increased suicidal thoughts/behavio rs in children and young adults, and serotonin syndrome. Patient educated on all medications including potential benefits, side effects, risks. Educated on proper dosing schedule and importance of compliance Second generation antipsychotics (SGAs) have metabolic syndrome issues with weight gain, increase in prolactin, increased waist circumference, increased lipids, and increased glucose. Thus routine monitoring of weight, metabolic labs, etc. is indicated. A general rank ordering of antipsychotics that have the greatest to the least risk of metabolic effects is olanzapine, quetiapine, risperidone, ziprasidone, and aripiprazole. However, weight gain can occur with all of these drugs and considerable variability exists among patients receiving the same drug regarding the risk of metabolic effects. Anti-psychotic agents not only increase the risk of metabolic disorder, they also increase the risk of CVA, akathisia, and movement disorders including EPS or tardive dyskinesia (more common with first generation antipsychotics) and more. Medication Management and Follow-Up - Plan: - Schedule follow-up appointments every 1-3 months to monitor the patient's response to the medication regimen. - Reinforce the importance of avoiding recreational drug use due to potential neurotoxicity and interactions with prescribed medications. 01/26/2025 Attention-deficit hyperactivity disorder, predominantly inattentive type (ICD-10 - F90.0) 01/26/2025 Complex posttraumatic stress disorder (ICD-10 - F43.10) 02/07/2025 Attention-deficit hyperactivity disorder, predominantly inattentive type (ICD-10 - F90.0) 02/07/2025 Complex posttraumatic stress disorder (ICD-10 - F43.10) 02/21/2025 Attention-deficit hyperactivity disorder, predominantly inattentive type (ICD-10 - F90.0) 02/21/2025 Encounter for screening for depression (ICD-10 - Z13.31) 03/14/2024 Nicotine dependence, unspecified, uncomplicated (ICD-10 - F17.200) 03/14/2024 Bipolar disorder, current episode depressed, mild (ICD-10 - F31.31) 03/14/2024 Generalized anxiety disorder (ICD-10 - F41.1) 03/14/2024 Anxiety disorder, unspecified (ICD-10 - F41.9) 03/14/2024 Attention-deficit hyperactivity disorder, combined type (ICD-10 - F90.2) 02/21/2025 Bipolar disorder, current episode depressed, mild (ICD-10 - F31.31) 02/07/2025 Bipolar disorder, current episode depressed, mild (ICD-10 - F31.31) 01/18/2025 Encounter for screening for cardiovascular disorders (ICD-10 - Z13.6) 1. Bipolar- depression and sleep issues Wellbutrin XL 150 MG DAILY in am,- MAY STOP IN NEAR FUTURE Cymbalta 30 mg daily- (patient reported tolerated 30 mg BID in past - nausea at 60 mg PO QD) patient has depression and anxiety with political situational and in therapy will work on coping skills, discuss and educated on Cymbalta (good response in past 30 mg BID dose) for depression and anxiety and also help her chronic pain, Seroquel 400 mg bedtime AIMS= 0 08/24/24 Missing teeth 2.Anxiety- therapy 3. ADD- Straterra 40 mg daily in am 4. Primary Insomnia- sleep hygiene on Seroquel will also help sleep 5.PTSD- therapy labs 04/24 PCP obtain 6. tobacco use Do not smoke. Nicotine and other chemicals in cigarettes and cigars can cause lung damage. Ask your healthcare provider for information if you currently smoke and need help to quit. E-cigarettes or smokeless tobacco still contain nicotine. Talk to your healthcare provider before you use these products. education on decrease to stopping nicotine products and stop smoking hotline given 472Quit - Yes [place] Tobacco Quitline Call a Smoking Quitline The [employer] [place] Smoking Quitline, (7-029-88M-QUIT) Smokefree.gov, which connects you with your State's Quitline, (4-475-SUAUGUF) [facility] Smoking Quitline, (1-367-OPSILYS) 8. Cannabis use Recommend decrease/stop cannabis use as it can negatively impact mood, motivation, anxiety, sleep, focus/concentrat ion/memory (vigilance, elasticity, processing and attention); can also contribute to development of psychosis. http_s://www.nim h.nih.gov/health /topics/mental-h ealth-medication s http_s://www.nam i.org/About-Ment al-Illness/Treat ments/Mental-Hea [facility]-Medications Recommend decrease/stop cannabis use as it may be negatively impacting mood, motivation, anxiety, sleep, focus; can also contribute to development of psychosis Cannabis/marijua na information: http_s://gely.ni h.gov/publicatio ns/drugfacts/can nabis-marijuana http_s://www.[employer]/can tcrlk-cfh-zrmyoe qw-ybfzfossp-noh d/ 8. HTN on B/P RX and see PCP educated on healthy b/p 120/80 monitor b/p at home refer to PCP, Urgent care/ER heart healthy diet and excise limit salt intake limit soda intake and caffiene increase water educated on all medications, benefits, side effects and risk, and educated on depression, anxiety, and ADHD, mood d/o and educated on compliance of medications, metabolic and movement d/o education appointment is, continue therapy discussion with patient about course of treatment and patient instructions. education on serotonin syndrome SSRI/SNRI side effects discussed including but not limited to, gastric upset, nausea, vomiting, diarrhea and/or constipation, weight changes, sexual side effects including loss of libido, increased suicidal thoughts/behavio rs in children and young adults, and serotonin syndrome. Patient educated on all medications including potential benefits, side effects, risks. Educated on proper dosing schedule and importance of compliance Second generation antipsychotics (SGAs) have metabolic syndrome issues with weight gain, increase in prolactin, increased waist circumference, increased lipids, and increased glucose. Thus routine monitoring of weight, metabolic labs, etc. is indicated. A general rank ordering of antipsychotics that have the greatest to the least risk of metabolic effects is olanzapine, quetiapine, risperidone, ziprasidone, and aripiprazole. However, weight gain can occur with all of these drugs and considerable variability exists among patients receiving the same drug regarding the risk of metabolic effects. Anti-psychotic agents not only increase the risk of metabolic disorder, they also increase the risk of CVA, akathisia, and movement disorders including EPS or tardive dyskinesia (more common with first generation antipsychotics) and more. Medication Management and Follow-Up - Plan: - Schedule follow-up appointments every 1-3 months to monitor the patient's response to the medication regimen. - Reinforce the importance of avoiding recreational drug use due to potential neurotoxicity and interactions with prescribed medications. 01/26/2025 Bipolar disorder, current episode depressed, mild (ICD-10 - F31.31) 12/13/2024 Bipolar disorder, current episode depressed, mild (ICD-10 - F31.31) 01/10/2025 Bipolar disorder, current episode depressed, mild (ICD-10 - F31.31) 12/27/2024 Bipolar disorder, current episode depressed, mild (ICD-10 - F31.31) 11/29/2024 Bipolar disorder, current episode depressed, mild (ICD-10 - F31.31) 12/07/2024 Bipolar disorder with moderate depression (ICD-10 - F31.32) 1. Bipolar- depression and sleep issues Wellbutrin XL 150 MG DAILY in am,- MAY STOP IN NEAR FUTURE Add Cymbalta 30 mg daily- (patient reported tolerated 30 mg BID in past - nausea at 60 mg PO QD) patient has depression and anxiety with political situational and in therapy will work on coping skills, discuss and educated on Cymbalta (good response in past 30 mg BID dose) for depression and anxiety and also help her chronic pain, Seroquel 400 mg bedtime AIMS= 0 08/24/24 Missing teeth 2.Anxiety- therapy 3. ADD- Straterra 40 mg daily in am 4. Primary Insomnia- sleep hygiene on Seroquel will also help sleep 5.PTSD- therapy labs 04/24 PCP obtain 6. tobacco use Do not smoke. Nicotine and other chemicals in cigarettes and cigars can cause lung damage. Ask your healthcare provider for information if you currently smoke and need help to quit. E-cigarettes or smokeless tobacco still contain nicotine. Talk to your healthcare provider before you use these products. education on decrease to stopping nicotine products and stop smoking hotline given -Quit - Yes [place] Tobacco Quitline Call a Smoking Quitline The [employer] [place]'s Smoking Quitline, (9-707-57J-QUIT) Smokefree.gov, which connects you with your State's Quitline, (9-887-PKJZZSG) Veterans Smoking Quitline, (7-296-VSPIEXL) 8. Cannabis use Recommend decrease/stop cannabis use as it can negatively impact mood, motivation, anxiety, sleep, focus/concentrat ion/memory (vigilance, elasticity, processing and attention); can also contribute to development of psychosis. http_s://www.nim h.nih.gov/health /topics/mental-h ealth-medication s http_s://www.nam i.org/About-Ment al-Illness/Treat ments/Mental-Hea lth-Medications Recommend decrease/stop cannabis use as it may be negatively impacting mood, motivation, anxiety, sleep, focus; can also contribute to development of psychosis Cannabis/marijua na information: http_s://gely.ni h.gov/publicatio ns/drugfacts/can nabis-marijuana http_s://www.[employer]/can wouzc-vcd-fenpry je-tksnymigw-vix d 8. HTN on B/P RX and see PCP educated on healthy b/p 120/80 monitor b/p at home refer to PCP, Urgent care/ER heart healthy diet and excise limit salt intake limit soda intake and caffiene increase water educated on all medications, benefits, side effects and risk, and educated on depression, anxiety, and ADHD, mood d/o and educated on compliance of medications, metabolic and movement d/o education appointment is, continue therapy discussion with patient about course of treatment and patient instructions. education on serotonin syndrome SSRI/SNRI side effects discussed including but not limited to, gastric upset, nausea, vomiting, diarrhea and/or constipation, weight changes, sexual side effects including loss of libido, increased suicidal thoughts/behavio rs in children and young adults, and serotonin syndrome. Patient educated on all medications including potential benefits, side effects, risks. Educated on proper dosing schedule and importance of compliance Second generation antipsychotics (SGAs) have metabolic syndrome issues with weight gain, increase in prolactin, increased waist circumference, increased lipids, and increased glucose. Thus routine monitoring of weight, metabolic labs, etc. is indicated. A general rank ordering of antipsychotics that have the greatest to the least risk of metabolic effects is olanzapine, quetiapine, risperidone, ziprasidone, and aripiprazole. However, weight gain can occur with all of these drugs and considerable variability exists among patients receiving the same drug regarding the risk of metabolic effects. Anti-psychotic agents not only increase the risk of metabolic disorder, they also increase the risk of CVA, akathisia, and movement disorders including EPS or tardive dyskinesia (more common with first generation antipsychotics) and more. Medication Management and Follow-Up - Plan: - Schedule follow-up appointments every 1-3 months to monitor the patient's response to the medication regimen. - Reinforce the importance of avoiding recreational drug use due to potential neurotoxicity and interactions with prescribed medications. 09/06/2024 Bipolar disorder, current episode depressed, mild (ICD-10 - F31.31) 11/16/2024 Attention-deficit hyperactivity disorder, predominantly inattentive type (ICD-10 - F90.0) Learning About Attention Deficit Hyperactivity Disorder (ADHD) in Adults material was published, Attention Deficit Hyperactivity Disorder (ADHD) in Adults: Care Instructions material was published, Learning About Stimulant Medicines for Attention Deficit Hyperactivity Disorder (ADHD) material was published, Attention Deficit Hyperactivity Disorder (ADHD) in Adults: Care Instructions material was published, Learning About Stimulant Medicines for Attention Deficit Hyperactivity Disorder (ADHD) material was published 1. Bipolar- having increase depression and sleep issues Wellbutrin XL 150 MG DAILY in am, discuss and educated on Cymbalta (good response in past) for depression and anxiety and also help her chronic pain, will see how increase Seroquel does until next visit then re-address Cymbalta Increase Seroquel 400 mg bedtime AIMS= 0 08/24/24 Missing teeth 2.Anxiety- therapy 3. ADD- Straterra 40 mg daily in am 4. Primary Insomnia- sleep hygiene on Seroquel will also help sleep 5.PTSD- therapy labs 04/24 PCP obtain 6. tobacco use Do not smoke. Nicotine and other chemicals in cigarettes and cigars can cause lung damage. Ask your healthcare provider for information if you currently smoke and need help to quit. E-cigarettes or smokeless tobacco still contain nicotine. Talk to your healthcare provider before you use these products. education on decrease to stopping nicotine products and stop smoking hotline given Quit - Yes [place] Tobacco Quitline Call a Smoking Quitline The [employer] [place]'s Smoking Quitline, (9-569-34O-QUIT) Smokefree.gov, which connects you with your State's Quitline, (0-341-PJKDSQD) Veterans Smoking Quitline, (4-343-FYKCXZH) 8. Cannabis use Recommend decrease/stop cannabis use as it can negatively impact mood, motivation, anxiety, sleep, focus/concentrat ion/memory (vigilance, elasticity, processing and attention); can also contribute to development of psychosis. http_s://www.nim h.nih.gov/health /topics/mental-h ealth-medication s http_s://www.nam i.org/About-Ment al-Illness/Treat ments/Mental-Hea lth-Medications Recommend decrease/stop cannabis use as it may be negatively impacting mood, motivation, anxiety, sleep, focus; can also contribute to development of psychosis Cannabis/marijua na information: http_s://gely.ni h.gov/publicatio ns/drugfacts/can nabis-marijuana http_s://www.[employer]/can pxczy-gne-mowwpa ko-skifbpfgu-uqa d/ 8. HTN on B/P RX and see PCP educated on healthy b/p 120/80 monitor b/p at home refer to PCP, Urgent care/ER heart healthy diet and excise limit salt intake limit soda intake and caffiene increase water educated on all medications, benefits, side effects and risk, and educated on depression, anxiety, and ADHD, mood d/o and educated on compliance of medications, metabolic and movement d/o education appointment is, continue therapy discussion with patient about course of treatment and patient instructions. education on serotonin syndrome SSRI/SNRI side effects discussed including but not limited to, gastric upset, nausea, vomiting, diarrhea and/or constipation, weight changes, sexual side effects including loss of libido, increased suicidal thoughts/behavio rs in children and young adults, and serotonin syndrome. Patient educated on all medications including potential benefits, side effects, risks. Educated on proper dosing schedule and importance of compliance Second generation antipsychotics (SGAs) have metabolic syndrome issues with weight gain, increase in prolactin, increased waist circumference, increased lipids, and increased glucose. Thus routine monitoring of weight, metabolic labs, etc. is indicated. A general rank ordering of antipsychotics that have the greatest to the least risk of metabolic effects is olanzapine, quetiapine, risperidone, ziprasidone, and aripiprazole. However, weight gain can occur with all of these drugs and considerable variability exists among patients receiving the same drug regarding the risk of metabolic effects. Anti-psychotic agents not only increase the risk of metabolic disorder, they also increase the risk of CVA, akathisia, and movement disorders including EPS or tardive dyskinesia (more common with first generation antipsychotics) and more. Medication Management and Follow-Up - Plan: - Schedule follow-up appointments every 1-3 months to monitor the patient's response to the medication regimen. - Reinforce the importance of avoiding recreational drug use due to potential neurotoxicity and interactions with prescribed medications. 11/15/2024 Bipolar disorder, current episode depressed, mild (ICD-10 - F31.31) 11/03/2024 Bipolar disorder, current episode depressed, mild (ICD-10 - F31.31) 10/18/2024 Bipolar disorder, current episode depressed, mild (ICD-10 - F31.31) 10/04/2024 Bipolar disorder, current episode depressed, mild (ICD-10 - F31.31) 09/20/2024 Bipolar disorder, current episode depressed, mild (ICD-10 - F31.31) 08/24/2024 Bipolar disorder, current episode depressed, mild (ICD-10 - F31.31) 08/24/2024 Attention-deficit hyperactivity disorder, predominantly inattentive type (ICD-10 - F90.0) Learning About Attention Deficit Hyperactivity Disorder (ADHD) in Adults material was published, Attention Deficit Hyperactivity Disorder (ADHD) in Adults: Care Instructions material was published, Learning About Stimulant Medicines for Attention Deficit Hyperactivity Disorder (ADHD) material was published Presently taking Straterra 40 mg daily in am, Wellbutrin XL 150 MG DAILY in am, Seroquel 300 mg bedtime Bipolar- Wellbutrin XL 150 MG DAILY in am, Seroquel 300 mg bedtime AIMS= 0 08/24/24 Missing teeth Anxiety- therapy ADD- Straterra 40 mg daily in am Primary Insomnia PTSD- therapy labs 04/24 PCP obtain educated on all medications, benefits, side effects and risk, and educated on depression, anxiety, and ADHD, mood d/o and educated on compliance of medications, metabolic and movement d/o education appointment is, continue therapy discussion with patient about course of treatment and patient instructions. education on serotonin syndrome SSRI/SNRI side effects discussed including but not limited to, gastric upset, nausea, vomiting, diarrhea and/or constipation, weight changes, sexual side effects including loss of libido, increased suicidal thoughts/behavio rs in children and young adults, and serotonin syndrome. Patient educated on all medications including potential benefits, side effects, risks. Educated on proper dosing schedule and importance of compliance Second generation antipsychotics (SGAs) have metabolic syndrome issues with weight gain, increase in prolactin, increased waist circumference, increased lipids, and increased glucose. Thus routine monitoring of weight, metabolic labs, etc. is indicated. A general rank ordering of antipsychotics that have the greatest to the least risk of metabolic effects is olanzapine, quetiapine, risperidone, ziprasidone, and aripiprazole. However, weight gain can occur with all of these drugs and considerable variability exists among patients receiving the same drug regarding the risk of metabolic effects. Anti-psychotic agents not only increase the risk of metabolic disorder, they also increase the risk of CVA, akathisia, and movement disorders including EPS or tardive dyskinesia (more common with first generation antipsychotics) and more. Medication Management and Follow-Up - Plan: - Schedule follow-up appointments every 1-3 months to monitor the patient's response to the medication regimen. - Reinforce the importance of avoiding recreational drug use due to potential neurotoxicity and interactions with prescribed medications. 08/09/2024 Bipolar disorder, current episode depressed, mild (ICD-10 - F31.31) 07/27/2024 Bipolar disorder, current episode depressed, mild (ICD-10 - F31.31) 07/13/2024 Bipolar disorder, current episode depressed, mild (ICD-10 - F31.31) 06/28/2024 Bipolar disorder, current episode depressed, mild (ICD-10 - F31.31) 06/21/2024 Bipolar disorder, current episode depressed, mild (ICD-10 - F31.31) 06/15/2024 Bipolar disorder, current episode depressed, mild (ICD-10 - F31.31) 06/07/2024 Bipolar disorder, current episode depressed, mild (ICD-10 - F31.31) 05/24/2024 Bipolar disorder, current episode depressed, mild (ICD-10 - F31.31) 05/03/2024 Complex posttraumatic stress disorder (ICD-10 - F43.10) 05/17/2024 Bipolar disorder, current episode depressed, mild (ICD-10 - F31.31) 08/24/2024 Primary insomnia (ICD-10 - F51.01) Insomnia: Care Instructions material was published, Learning About Sleeping Well material was published Presently taking Straterra 40 mg daily in am, Wellbutrin XL 150 MG DAILY in am, Seroquel 300 mg bedtime Bipolar- Wellbutrin XL 150 MG DAILY in am, Seroquel 300 mg bedtime AIMS= 0 08/24/24 Missing teeth Anxiety- therapy ADD- Straterra 40 mg daily in am Primary Insomnia PTSD- therapy labs 04/24 PCP obtain educated on all medications, benefits, side effects and risk, and educated on depression, anxiety, and ADHD, mood d/o and educated on compliance of medications, metabolic and movement d/o education appointment is, continue therapy discussion with patient about course of treatment and patient instructions. education on serotonin syndrome SSRI/SNRI side effects discussed including but not limited to, gastric upset, nausea, vomiting, diarrhea and/or constipation, weight changes, sexual side effects including loss of libido, increased suicidal thoughts/behavio rs in children and young adults, and serotonin syndrome. Patient educated on all medications including potential benefits, side effects, risks. Educated on proper dosing schedule and importance of compliance Second generation antipsychotics (SGAs) have metabolic syndrome issues with weight gain, increase in prolactin, increased waist circumference, increased lipids, and increased glucose. Thus routine monitoring of weight, metabolic labs, etc. is indicated. A general rank ordering of antipsychotics that have the greatest to the least risk of metabolic effects is olanzapine, quetiapine, risperidone, ziprasidone, and aripiprazole. However, weight gain can occur with all of these drugs and considerable variability exists among patients receiving the same drug regarding the risk of metabolic effects. Anti-psychotic agents not only increase the risk of metabolic disorder, they also increase the risk of CVA, akathisia, and movement disorders including EPS or tardive dyskinesia (more common with first generation antipsychotics) and more. Medication Management and Follow-Up - Plan: - Schedule follow-up appointments every 1-3 months to monitor the patient's response to the medication regimen. - Reinforce the importance of avoiding recreational drug use due to potential neurotoxicity and interactions with prescribed medications. 09/20/2024 Anxiety disorder, unspecified (ICD-10 - F41.9) 10/04/2024 Anxiety disorder, unspecified (ICD-10 - F41.9) 10/18/2024 Anxiety disorder, unspecified (ICD-10 - F41.9) 11/03/2024 Anxiety disorder, unspecified (ICD-10 - F41.9) 11/15/2024 Anxiety disorder, unspecified (ICD-10 - F41.9) 11/16/2024 Primary insomnia (ICD-10 - F51.01) Insomnia: Care Instructions material was published, Learning About Sleeping Well material was published, Insomnia: Care Instructions material was published, Learning About Sleeping Well material was published 1. Bipolar- having increase depression and sleep issues Wellbutrin XL 150 MG DAILY in am, discuss and educated on Cymbalta (good response in past) for depression and anxiety and also help her chronic pain, will see how increase Seroquel does until next visit then re-address Cymbalta Increase Seroquel 400 mg bedtime AIMS= 0 08/24/24 Missing teeth 2.Anxiety- therapy 3. ADD- Straterra 40 mg daily in am 4. Primary Insomnia- sleep hygiene on Seroquel will also help sleep 5.PTSD- therapy labs 04/24 PCP obtain 6. tobacco use Do not smoke. Nicotine and other chemicals in cigarettes and cigars can cause lung damage. Ask your healthcare provider for information if you currently smoke and need help to quit. E-cigarettes or smokeless tobacco still contain nicotine. Talk to your healthcare provider before you use these products. education on decrease to stopping nicotine products and stop smoking hotline given -Quit - Yes [place] Tobacco Quitline Call a Smoking Quitline The [employer] [place]'s Smoking Quitline, (2-794-23G-QUIT) Smokefree.gov, which connects you with your State's Quitline, (9-938-YAGWYRM) Veterans Smoking Quitline, (7-525-BMLYAOG) 8. Cannabis use Recommend decrease/stop cannabis use as it can negatively impact mood, motivation, anxiety, sleep, focus/concentrat ion/memory (vigilance, elasticity, processing and attention); can also contribute to development of psychosis. http_s://www.nim h.nih.gov/health /topics/mental-h ealth-medication s http_s://www.nam i.org/About-Ment al-Illness/Treat ments/Mental-Hea lth-Medications Recommend decrease/stop cannabis use as it may be negatively impacting mood, motivation, anxiety, sleep, focus; can also contribute to development of psychosis Cannabis/marijua na information: http_s://gely.ni h.gov/publicatio ns/drugfacts/can nabis-marijuana http_s://www.[employer]/can oypvu-egz-bbmdqu wo-eqpskqpki-oyk d/ 8. HTN on B/P RX and see PCP educated on healthy b/p 120/80 monitor b/p at home refer to PCP, Urgent care/ER heart healthy diet and excise limit salt intake limit soda intake and caffiene increase water educated on all medications, benefits, side effects and risk, and educated on depression, anxiety, and ADHD, mood d/o and educated on compliance of medications, metabolic and movement d/o education appointment is, continue therapy discussion with patient about course of treatment and patient instructions. education on serotonin syndrome SSRI/SNRI side effects discussed including but not limited to, gastric upset, nausea, vomiting, diarrhea and/or constipation, weight changes, sexual side effects including loss of libido, increased suicidal thoughts/behavio rs in children and young adults, and serotonin syndrome. Patient educated on all medications including potential benefits, side effects, risks. Educated on proper dosing schedule and importance of compliance Second generation antipsychotics (SGAs) have metabolic syndrome issues with weight gain, increase in prolactin, increased waist circumference, increased lipids, and increased glucose. Thus routine monitoring of weight, metabolic labs, etc. is indicated. A general rank ordering of antipsychotics that have the greatest to the least risk of metabolic effects is olanzapine, quetiapine, risperidone, ziprasidone, and aripiprazole. However, weight gain can occur with all of these drugs and considerable variability exists among patients receiving the same drug regarding the risk of metabolic effects. Anti-psychotic agents not only increase the risk of metabolic disorder, they also increase the risk of CVA, akathisia, and movement disorders including EPS or tardive dyskinesia (more common with first generation antipsychotics) and more. Medication Management and Follow-Up - Plan: - Schedule follow-up appointments every 1-3 months to monitor the patient's response to the medication regimen. - Reinforce the importance of avoiding recreational drug use due to potential neurotoxicity and interactions with prescribed medications. 09/06/2024 Anxiety disorder, unspecified (ICD-10 - F41.9) 11/29/2024 Anxiety disorder, unspecified (ICD-10 - F41.9) 12/07/2024 Attention-deficit hyperactivity disorder, predominantly inattentive type (ICD-10 - F90.0) Learning About Attention Deficit Hyperactivity Disorder (ADHD) in Adults material was published, Attention Deficit Hyperactivity Disorder (ADHD) in Adults: Care Instructions material was published, Learning About Stimulant Medicines for Attention Deficit Hyperactivity Disorder (ADHD) material was published, Attention Deficit Hyperactivity Disorder (ADHD) in Adults: Care Instructions material was published, Learning About Stimulant Medicines for Attention Deficit Hyperactivity Disorder (ADHD) material was published 1. Bipolar- depression and sleep issues Wellbutrin XL 150 MG DAILY in am,- MAY STOP IN NEAR FUTURE Add Cymbalta 30 mg daily- (patient reported tolerated 30 mg BID in past - nausea at 60 mg PO QD) patient has depression and anxiety with political situational and in therapy will work on coping skills, discuss and educated on Cymbalta (good response in past 30 mg BID dose) for depression and anxiety and also help her chronic pain, Seroquel 400 mg bedtime AIMS= 0 08/24/24 Missing teeth 2.Anxiety- therapy 3. ADD- Straterra 40 mg daily in am 4. Primary Insomnia- sleep hygiene on Seroquel will also help sleep 5.PTSD- therapy labs 04/24 PCP obtain 6. tobacco use Do not smoke. Nicotine and other chemicals in cigarettes and cigars can cause lung damage. Ask your healthcare provider for information if you currently smoke and need help to quit. E-cigarettes or smokeless tobacco still contain nicotine. Talk to your healthcare provider before you use these products. education on decrease to stopping nicotine products and stop smoking hotline given Quit - Yes [place] Tobacco Quitline Call a Smoking Quitline The [employer] [place]'s Smoking Quitline, (2-378-64T-QUIT) Smokefree.gov, which connects you with your State's Quitline, (9-467-EPEXAZA) [facility] Smoking Quitline, (5-297-ADXMYUN) 8. Cannabis use Recommend decrease/stop cannabis use as it can negatively impact mood, motivation, anxiety, sleep, focus/concentrat ion/memory (vigilance, elasticity, processing and attention); can also contribute to development of psychosis. http_s://www.nim h.nih.gov/health /topics/mental-h ealth-medication s http_s://www.nam i.org/About-Ment al-Illness/Treat ments/Mental-Hea lth-Medications Recommend decrease/stop cannabis use as it may be negatively impacting mood, motivation, anxiety, sleep, focus; can also contribute to development of psychosis Cannabis/marijua na information: http_s://gely.ni h.gov/publicatio ns/drugfacts/can nabis-marijuana http_s://www.[employer]/can vmhdi-uwy-qljfyz az-ssfatrrom-qef d/ 8. HTN on B/P RX and see PCP educated on healthy b/p 120/80 monitor b/p at home refer to PCP, Urgent care/ER heart healthy diet and excise limit salt intake limit soda intake and caffiene increase water educated on all medications, benefits, side effects and risk, and educated on depression, anxiety, and ADHD, mood d/o and educated on compliance of medications, metabolic and movement d/o education appointment is, continue therapy discussion with patient about course of treatment and patient instructions. education on serotonin syndrome SSRI/SNRI side effects discussed including but not limited to, gastric upset, nausea, vomiting, diarrhea and/or constipation, weight changes, sexual side effects including loss of libido, increased suicidal thoughts/behavio rs in children and young adults, and serotonin syndrome. Patient educated on all medications including potential benefits, side effects, risks. Educated on proper dosing schedule and importance of compliance Second generation antipsychotics (SGAs) have metabolic syndrome issues with weight gain, increase in prolactin, increased waist circumference, increased lipids, and increased glucose. Thus routine monitoring of weight, metabolic labs, etc. is indicated. A general rank ordering of antipsychotics that have the greatest to the least risk of metabolic effects is olanzapine, quetiapine, risperidone, ziprasidone, and aripiprazole. However, weight gain can occur with all of these drugs and considerable variability exists among patients receiving the same drug regarding the risk of metabolic effects. Anti-psychotic agents not only increase the risk of metabolic disorder, they also increase the risk of CVA, akathisia, and movement disorders including EPS or tardive dyskinesia (more common with first generation antipsychotics) and more. Medication Management and Follow-Up - Plan: - Schedule follow-up appointments every 1-3 months to monitor the patient's response to the medication regimen. - Reinforce the importance of avoiding recreational drug use due to potential neurotoxicity and interactions with prescribed medications. 12/27/2024 Anxiety disorder, unspecified (ICD-10 - F41.9) 01/10/2025 Anxiety disorder, unspecified (ICD-10 - F41.9) 12/13/2024 Anxiety disorder, unspecified (ICD-10 - F41.9) 01/18/2025 Generalized anxiety disorder (ICD-10 - F41.1) Generalized Anxiety Disorder: Care Instructions material was published, Learning About Generalized Anxiety Disorder material was published, Learning About Anxiety Disorders material was published, Generalized Anxiety Disorder: Care Instructions material was published, Learning About Generalized Anxiety Disorder material was published, Learning About Anxiety Disorders material was published 1. Bipolar- depression and sleep issues Wellbutrin XL 150 MG DAILY in am,- MAY STOP IN NEAR FUTURE Cymbalta 30 mg daily- (patient reported tolerated 30 mg BID in past - nausea at 60 mg PO QD) patient has depression and anxiety with political situational and in therapy will work on coping skills, discuss and educated on Cymbalta (good response in past 30 mg BID dose) for depression and anxiety and also help her chronic pain, Seroquel 400 mg bedtime AIMS= 0 08/24/24 Missing teeth 2.Anxiety- therapy 3. ADD- Straterra 40 mg daily in am 4. Primary Insomnia- sleep hygiene on Seroquel will also help sleep 5.PTSD- therapy labs 04/24 PCP obtain 6. tobacco use Do not smoke. Nicotine and other chemicals in cigarettes and cigars can cause lung damage. Ask your healthcare provider for information if you currently smoke and need help to quit. E-cigarettes or smokeless tobacco still contain nicotine. Talk to your healthcare provider before you use these products. education on decrease to stopping nicotine products and stop smoking hotline given -Quit - Yes [place] Tobacco Quitline Call a Smoking Quitline The [employer] [place] Smoking Quitline, (0-229-07G-QUIT) Smokefree.gov, which connects you with your State's Quitline, (6-674-SZZGGTW) Veterans Smoking Quitline, (6-915-VXOMRSK) 8. Cannabis use Recommend decrease/stop cannabis use as it can negatively impact mood, motivation, anxiety, sleep, focus/concentrat ion/memory (vigilance, elasticity, processing and attention); can also contribute to development of psychosis. http_s://www.nim h.nih.gov/health /topics/mental-h ealth-medication s http_s://www.nam i.org/About-Ment al-Illness/Treat ments/Mental-Hea lth-Medications Recommend decrease/stop cannabis use as it may be negatively impacting mood, motivation, anxiety, sleep, focus; can also contribute to development of psychosis Cannabis/marijua na information: http_s://gely.ni h.gov/publicatio ns/drugfacts/can nabis-marijuana http_s://www.[employer]/can hqwsz-mvg-izivvh us-ovbjfiirf-adh d/ 8. HTN on B/P RX and see PCP educated on healthy b/p 120/80 monitor b/p at home refer to PCP, Urgent care/ER heart healthy diet and excise limit salt intake limit soda intake and caffiene increase water educated on all medications, benefits, side effects and risk, and educated on depression, anxiety, and ADHD, mood d/o and educated on compliance of medications, metabolic and movement d/o education appointment is, continue therapy discussion with patient about course of treatment and patient instructions. education on serotonin syndrome SSRI/SNRI side effects discussed including but not limited to, gastric upset, nausea, vomiting, diarrhea and/or constipation, weight changes, sexual side effects including loss of libido, increased suicidal thoughts/behavio rs in children and young adults, and serotonin syndrome. Patient educated on all medications including potential benefits, side effects, risks. Educated on proper dosing schedule and importance of compliance Second generation antipsychotics (SGAs) have metabolic syndrome issues with weight gain, increase in prolactin, increased waist circumference, increased lipids, and increased glucose. Thus routine monitoring of weight, metabolic labs, etc. is indicated. A general rank ordering of antipsychotics that have the greatest to the least risk of metabolic effects is olanzapine, quetiapine, risperidone, ziprasidone, and aripiprazole. However, weight gain can occur with all of these drugs and considerable variability exists among patients receiving the same drug regarding the risk of metabolic effects. Anti-psychotic agents not only increase the risk of metabolic disorder, they also increase the risk of CVA, akathisia, and movement disorders including EPS or tardive dyskinesia (more common with first generation antipsychotics) and more. Medication Management and Follow-Up - Plan: - Schedule follow-up appointments every 1-3 months to monitor the patient's response to the medication regimen. - Reinforce the importance of avoiding recreational drug use due to potential neurotoxicity and interactions with prescribed medications. 01/26/2025 Anxiety disorder, unspecified (ICD-10 - F41.9) 02/21/2025 Complex posttraumatic stress disorder (ICD-10 - F43.10) 05/03/2024 Bipolar disorder, current episode depressed, mild (ICD-10 - F31.31) 08/24/2024 Complex posttraumatic stress disorder (ICD-10 - F43.10) Post-Traumatic Stress Disorder (PTSD): Care Instructions material was published Presently taking Straterra 40 mg daily in am, Wellbutrin XL 150 MG DAILY in am, Seroquel 300 mg bedtime Bipolar- Wellbutrin XL 150 MG DAILY in am, Seroquel 300 mg bedtime AIMS= 0 08/24/24 Missing teeth Anxiety- therapy ADD- Straterra 40 mg daily in am Primary Insomnia PTSD- therapy labs 04/24 PCP obtain educated on all medications, benefits, side effects and risk, and educated on depression, anxiety, and ADHD, mood d/o and educated on compliance of medications, metabolic and movement d/o education appointment is, continue therapy discussion with patient about course of treatment and patient instructions. education on serotonin syndrome SSRI/SNRI side effects discussed including but not limited to, gastric upset, nausea, vomiting, diarrhea and/or constipation, weight changes, sexual side effects including loss of libido, increased suicidal thoughts/behavio rs in children and young adults, and serotonin syndrome. Patient educated on all medications including potential benefits, side effects, risks. Educated on proper dosing schedule and importance of compliance Second generation antipsychotics (SGAs) have metabolic syndrome issues with weight gain, increase in prolactin, increased waist circumference, increased lipids, and increased glucose. Thus routine monitoring of weight, metabolic labs, etc. is indicated. A general rank ordering of antipsychotics that have the greatest to the least risk of metabolic effects is olanzapine, quetiapine, risperidone, ziprasidone, and aripiprazole. However, weight gain can occur with all of these drugs and considerable variability exists among patients receiving the same drug regarding the risk of metabolic effects. Anti-psychotic agents not only increase the risk of metabolic disorder, they also increase the risk of CVA, akathisia, and movement disorders including EPS or tardive dyskinesia (more common with first generation antipsychotics) and more. Medication Management and Follow-Up - Plan: - Schedule follow-up appointments every 1-3 months to monitor the patient's response to the medication regimen. - Reinforce the importance of avoiding recreational drug use due to potential neurotoxicity and interactions with prescribed medications. 01/18/2025 Attention-deficit hyperactivity disorder, predominantly inattentive type (ICD-10 - F90.0) Learning About Attention Deficit Hyperactivity Disorder (ADHD) in Adults material was published, Attention Deficit Hyperactivity Disorder (ADHD) in Adults: Care Instructions material was published, Learning About Stimulant Medicines for Attention Deficit Hyperactivity Disorder (ADHD) material was published, Attention Deficit Hyperactivity Disorder (ADHD) in Adults: Care Instructions material was published, Learning About Stimulant Medicines for Attention Deficit Hyperactivity Disorder (ADHD) material was published 1. Bipolar- depression and sleep issues Wellbutrin XL 150 MG DAILY in am,- MAY STOP IN NEAR FUTURE Cymbalta 30 mg daily- (patient reported tolerated 30 mg BID in past - nausea at 60 mg PO QD) patient has depression and anxiety with political situational and in therapy will work on coping skills, discuss and educated on Cymbalta (good response in past 30 mg BID dose) for depression and anxiety and also help her chronic pain, Seroquel 400 mg bedtime AIMS= 0 08/24/24 Missing teeth 2.Anxiety- therapy 3. ADD- Straterra 40 mg daily in am 4. Primary Insomnia- sleep hygiene on Seroquel will also help sleep 5.PTSD- therapy labs 04/24 PCP obtain 6. tobacco use Do not smoke. Nicotine and other chemicals in cigarettes and cigars can cause lung damage. Ask your healthcare provider for information if you currently smoke and need help to quit. E-cigarettes or smokeless tobacco still contain nicotine. Talk to your healthcare provider before you use these products. education on decrease to stopping nicotine products and stop smoking hotline given -Quit - Yes [place] Tobacco Quitline Call a Smoking Quitline The [employer] [place]'s Smoking Quitline, (9-243-81I-QUIT) Smokefree.gov, which connects you with your State's Quitline, (8-729-XQLSBVU) Veterans Smoking Quitline, (0-143-UNBOYNR) 8. Cannabis use Recommend decrease/stop cannabis use as it can negatively impact mood, motivation, anxiety, sleep, focus/concentrat ion/memory (vigilance, elasticity, processing and attention); can also contribute to development of psychosis. http_s://www.nim h.nih.gov/health /topics/mental-h ealth-medication s http_s://www.nam i.org/About-Ment al-Illness/Treat ments/Mental-Hea lth-Medications Recommend decrease/stop cannabis use as it may be negatively impacting mood, motivation, anxiety, sleep, focus; can also contribute to development of psychosis Cannabis/marijua na information: http_s://gely.ni h.gov/publicatio ns/drugfacts/can nabis-marijuana http_s://www.[employer]/can dvhar-zde-wwcdre jj-gphlwlsby-ytg d/ 8. HTN on B/P RX and see PCP educated on healthy b/p 120/80 monitor b/p at home refer to PCP, Urgent care/ER heart healthy diet and excise limit salt intake limit soda intake and caffiene increase water educated on all medications, benefits, side effects and risk, and educated on depression, anxiety, and ADHD, mood d/o and educated on compliance of medications, metabolic and movement d/o education appointment is, continue therapy discussion with patient about course of treatment and patient instructions. education on serotonin syndrome SSRI/SNRI side effects discussed including but not limited to, gastric upset, nausea, vomiting, diarrhea and/or constipation, weight changes, sexual side effects including loss of libido, increased suicidal thoughts/behavio rs in children and young adults, and serotonin syndrome. Patient educated on all medications including potential benefits, side effects, risks. Educated on proper dosing schedule and importance of compliance Second generation antipsychotics (SGAs) have metabolic syndrome issues with weight gain, increase in prolactin, increased waist circumference, increased lipids, and increased glucose. Thus routine monitoring of weight, metabolic labs, etc. is indicated. A general rank ordering of antipsychotics that have the greatest to the least risk of metabolic effects is olanzapine, quetiapine, risperidone, ziprasidone, and aripiprazole. However, weight gain can occur with all of these drugs and considerable variability exists among patients receiving the same drug regarding the risk of metabolic effects. Anti-psychotic agents not only increase the risk of metabolic disorder, they also increase the risk of CVA, akathisia, and movement disorders including EPS or tardive dyskinesia (more common with first generation antipsychotics) and more. Medication Management and Follow-Up - Plan: - Schedule follow-up appointments every 1-3 months to monitor the patient's response to the medication regimen. - Reinforce the importance of avoiding recreational drug use due to potential neurotoxicity and interactions with prescribed medications. 11/16/2024 Complex posttraumatic stress disorder (ICD-10 - F43.10) Post-Traumatic Stress Disorder (PTSD): Care Instructions material was published, Post-Traumatic Stress Disorder (PTSD): Care Instructions material was published 1. Bipolar- having increase depression and sleep issues Wellbutrin XL 150 MG DAILY in am, discuss and educated on Cymbalta (good response in past) for depression and anxiety and also help her chronic pain, will see how increase Seroquel does until next visit then re-address Cymbalta Increase Seroquel 400 mg bedtime AIMS= 0 08/24/24 Missing teeth 2.Anxiety- therapy 3. ADD- Straterra 40 mg daily in am 4. Primary Insomnia- sleep hygiene on Seroquel will also help sleep 5.PTSD- therapy labs 04/24 PCP obtain 6. tobacco use Do not smoke. Nicotine and other chemicals in cigarettes and cigars can cause lung damage. Ask your healthcare provider for information if you currently smoke and need help to quit. E-cigarettes or smokeless tobacco still contain nicotine. Talk to your healthcare provider before you use these products. education on decrease to stopping nicotine products and stop smoking hotline given -Quit - Yes [place] Tobacco Quitline Call a Smoking Quitline The [employer] [place]'s Smoking Quitline, (1-154-04J-QUIT) Smokefree.gov, which connects you with your State's Quitline, (6-527-EIMEZKV) Veterans Smoking Quitline, (8-444-KTEUIYY) 8. Cannabis use Recommend decrease/stop cannabis use as it can negatively impact mood, motivation, anxiety, sleep, focus/concentrat ion/memory (vigilance, elasticity, processing and attention); can also contribute to development of psychosis. http_s://www.nim h.nih.gov/health /topics/mental-h ealth-medication s http_s://www.nam i.org/About-Ment al-Illness/Treat ments/Mental-Hea lth-Medications Recommend decrease/stop cannabis use as it may be negatively impacting mood, motivation, anxiety, sleep, focus; can also contribute to development of psychosis Cannabis/marijua na information: http_s://gely.ni h.gov/publicatio ns/drugfacts/can nabis-marijuana http_s://www.[employer]/can zsroy-oia-wylgnx me-rzfzzjjxt-gzq d/ 8. HTN on B/P RX and see PCP educated on healthy b/p 120/80 monitor b/p at home refer to PCP, Urgent care/ER heart healthy diet and excise limit salt intake limit soda intake and caffiene increase water educated on all medications, benefits, side effects and risk, and educated on depression, anxiety, and ADHD, mood d/o and educated on compliance of medications, metabolic and movement d/o education appointment is, continue therapy discussion with patient about course of treatment and patient instructions. education on serotonin syndrome SSRI/SNRI side effects discussed including but not limited to, gastric upset, nausea, vomiting, diarrhea and/or constipation, weight changes, sexual side effects including loss of libido, increased suicidal thoughts/behavio rs in children and young adults, and serotonin syndrome. Patient educated on all medications including potential benefits, side effects, risks. Educated on proper dosing schedule and importance of compliance Second generation antipsychotics (SGAs) have metabolic syndrome issues with weight gain, increase in prolactin, increased waist circumference, increased lipids, and increased glucose. Thus routine monitoring of weight, metabolic labs, etc. is indicated. A general rank ordering of antipsychotics that have the greatest to the least risk of metabolic effects is olanzapine, quetiapine, risperidone, ziprasidone, and aripiprazole. However, weight gain can occur with all of these drugs and considerable variability exists among patients receiving the same drug regarding the risk of metabolic effects. Anti-psychotic agents not only increase the risk of metabolic disorder, they also increase the risk of CVA, akathisia, and movement disorders including EPS or tardive dyskinesia (more common with first generation antipsychotics) and more. Medication Management and Follow-Up - Plan: - Schedule follow-up appointments every 1-3 months to monitor the patient's response to the medication regimen. - Reinforce the importance of avoiding recreational drug use due to potential neurotoxicity and interactions with prescribed medications. 12/07/2024 Primary insomnia (ICD-10 - F51.01) Insomnia: Care Instructions material was published, Learning About Sleeping Well material was published, Insomnia: Care Instructions material was published, Learning About Sleeping Well material was published 1. Bipolar- depression and sleep issues Wellbutrin XL 150 MG DAILY in am,- MAY STOP IN NEAR FUTURE Add Cymbalta 30 mg daily- (patient reported tolerated 30 mg BID in past - nausea at 60 mg PO QD) patient has depression and anxiety with political situational and in therapy will work on coping skills, discuss and educated on Cymbalta (good response in past 30 mg BID dose) for depression and anxiety and also help her chronic pain, Seroquel 400 mg bedtime AIMS= 0 08/24/24 Missing teeth 2.Anxiety- therapy 3. ADD- Straterra 40 mg daily in am 4. Primary Insomnia- sleep hygiene on Seroquel will also help sleep 5.PTSD- therapy labs 04/24 PCP obtain 6. tobacco use Do not smoke. Nicotine and other chemicals in cigarettes and cigars can cause lung damage. Ask your healthcare provider for information if you currently smoke and need help to quit. E-cigarettes or smokeless tobacco still contain nicotine. Talk to your healthcare provider before you use these products. education on decrease to stopping nicotine products and stop smoking hotline given -Quit - Yes [place] Tobacco Quitline Call a Smoking Quitline The [employer] [place] Smoking Quitline, (3-919-72Q-QUIT) Smokefree.gov, which connects you with your State's Quitline, (1-665-LWWNFWD) [facility] Smoking Quitline, (8-616-WYDIZTU) 8. Cannabis use Recommend decrease/stop cannabis use as it can negatively impact mood, motivation, anxiety, sleep, focus/concentrat ion/memory (vigilance, elasticity, processing and attention); can also contribute to development of psychosis. http_s://www.nim h.nih.gov/health /topics/mental-h ealth-medication s http_s://www.nam i.org/About-Ment al-Illness/Treat ments/Mental-Hea lth-Medications Recommend decrease/stop cannabis use as it may be negatively impacting mood, motivation, anxiety, sleep, focus; can also contribute to development of psychosis Cannabis/marijua na information: http_s://gely.ni h.gov/publicatio ns/drugfacts/can nabis-marijuana http_s://www.[employer]/can dtwoe-dsx-hkdpbu hi-tnblqdgzw-ako d/ 8. HTN on B/P RX and see PCP educated on healthy b/p 120/80 monitor b/p at home refer to PCP, Urgent care/ER heart healthy diet and excise limit salt intake limit soda intake and caffiene increase water educated on all medications, benefits, side effects and risk, and educated on depression, anxiety, and ADHD, mood d/o and educated on compliance of medications, metabolic and movement d/o education appointment is, continue therapy discussion with patient about course of treatment and patient instructions. education on serotonin syndrome SSRI/SNRI side effects discussed including but not limited to, gastric upset, nausea, vomiting, diarrhea and/or constipation, weight changes, sexual side effects including loss of libido, increased suicidal thoughts/behavio rs in children and young adults, and serotonin syndrome. Patient educated on all medications including potential benefits, side effects, risks. Educated on proper dosing schedule and importance of compliance Second generation antipsychotics (SGAs) have metabolic syndrome issues with weight gain, increase in prolactin, increased waist circumference, increased lipids, and increased glucose. Thus routine monitoring of weight, metabolic labs, etc. is indicated. A general rank ordering of antipsychotics that have the greatest to the least risk of metabolic effects is olanzapine, quetiapine, risperidone, ziprasidone, and aripiprazole. However, weight gain can occur with all of these drugs and considerable variability exists among patients receiving the same drug regarding the risk of metabolic effects. Anti-psychotic agents not only increase the risk of metabolic disorder, they also increase the risk of CVA, akathisia, and movement disorders including EPS or tardive dyskinesia (more common with first generation antipsychotics) and more. Medication Management and Follow-Up - Plan: - Schedule follow-up appointments every 1-3 months to monitor the patient's response to the medication regimen. - Reinforce the importance of avoiding recreational drug use due to potential neurotoxicity and interactions with prescribed medications. 11/16/2024 Other fpc (current) drug therapy (ICD-10 - Z79.899) Medication Refill: Care Instructions material was published, Medication Refill: Care Instructions material was published 1. Bipolar- having increase depression and sleep issues Wellbutrin XL 150 MG DAILY in am, discuss and educated on Cymbalta (good response in past) for depression and anxiety and also help her chronic pain, will see how increase Seroquel does until next visit then re-address Cymbalta Increase Seroquel 400 mg bedtime AIMS= 0 08/24/24 Missing teeth 2.Anxiety- therapy 3. ADD- Straterra 40 mg daily in am 4. Primary Insomnia- sleep hygiene on Seroquel will also help sleep 5.PTSD- therapy labs 04/24 PCP obtain 6. tobacco use Do not smoke. Nicotine and other chemicals in cigarettes and cigars can cause lung damage. Ask your healthcare provider for information if you currently smoke and need help to quit. E-cigarettes or smokeless tobacco still contain nicotine. Talk to your healthcare provider before you use these products. education on decrease to stopping nicotine products and stop smoking hotline given -Quit - Yes [place] Tobacco Quitline Call a Smoking Quitline The [employer] [place] Smoking Quitline, (3-922-43O-QUIT) Smokefree.gov, which connects you with your State's Quitline, (7-387-NZUODLP) [facility] Smoking Quitline, (6-039-PTQZZWB) 8. Cannabis use Recommend decrease/stop cannabis use as it can negatively impact mood, motivation, anxiety, sleep, focus/concentrat ion/memory (vigilance, elasticity, processing and attention); can also contribute to development of psychosis. http_s://www.nim h.nih.gov/health /topics/mental-h ealth-medication s http_s://www.nam i.org/About-Ment al-Illness/Treat ments/Mental-Hea lth-Medications Recommend decrease/stop cannabis use as it may be negatively impacting mood, motivation, anxiety, sleep, focus; can also contribute to development of psychosis Cannabis/marijua na information: http_s://gely.ni h.gov/publicatio ns/drugfacts/can nabis-marijuana http_s://www.[employer]/can cbttx-ugg-rjiegi ux-mjrjufnql-qwd d/ 8. HTN on B/P RX and see PCP educated on healthy b/p 120/80 monitor b/p at home refer to PCP, Urgent care/ER heart healthy diet and excise limit salt intake limit soda intake and caffiene increase water educated on all medications, benefits, side effects and risk, and educated on depression, anxiety, and ADHD, mood d/o and educated on compliance of medications, metabolic and movement d/o education appointment is, continue therapy discussion with patient about course of treatment and patient instructions. education on serotonin syndrome SSRI/SNRI side effects discussed including but not limited to, gastric upset, nausea, vomiting, diarrhea and/or constipation, weight changes, sexual side effects including loss of libido, increased suicidal thoughts/behavio rs in children and young adults, and serotonin syndrome. Patient educated on all medications including potential benefits, side effects, risks. Educated on proper dosing schedule and importance of compliance Second generation antipsychotics (SGAs) have metabolic syndrome issues with weight gain, increase in prolactin, increased waist circumference, increased lipids, and increased glucose. Thus routine monitoring of weight, metabolic labs, etc. is indicated. A general rank ordering of antipsychotics that have the greatest to the least risk of metabolic effects is olanzapine, quetiapine, risperidone, ziprasidone, and aripiprazole. However, weight gain can occur with all of these drugs and considerable variability exists among patients receiving the same drug regarding the risk of metabolic effects. Anti-psychotic agents not only increase the risk of metabolic disorder, they also increase the risk of CVA, akathisia, and movement disorders including EPS or tardive dyskinesia (more common with first generation antipsychotics) and more. Medication Management and Follow-Up - Plan: - Schedule follow-up appointments every 1-3 months to monitor the patient's response to the medication regimen. - Reinforce the importance of avoiding recreational drug use due to potential neurotoxicity and interactions with prescribed medications. 08/24/2024 Other fpc (current) drug therapy (ICD-10 - Z79.899) Medication Refill: Care Instructions material was published Presently taking Straterra 40 mg daily in am, Wellbutrin XL 150 MG DAILY in am, Seroquel 300 mg bedtime Bipolar- Wellbutrin XL 150 MG DAILY in am, Seroquel 300 mg bedtime AIMS= 0 08/24/24 Missing teeth Anxiety- therapy ADD- Straterra 40 mg daily in am Primary Insomnia PTSD- therapy labs 04/24 PCP obtain educated on all medications, benefits, side effects and risk, and educated on depression, anxiety, and ADHD, mood d/o and educated on compliance of medications, metabolic and movement d/o education appointment is, continue therapy discussion with patient about course of treatment and patient instructions. education on serotonin syndrome SSRI/SNRI side effects discussed including but not limited to, gastric upset, nausea, vomiting, diarrhea and/or constipation, weight changes, sexual side effects including loss of libido, increased suicidal thoughts/behavio rs in children and young adults, and serotonin syndrome. Patient educated on all medications including potential benefits, side effects, risks. Educated on proper dosing schedule and importance of compliance Second generation antipsychotics (SGAs) have metabolic syndrome issues with weight gain, increase in prolactin, increased waist circumference, increased lipids, and increased glucose. Thus routine monitoring of weight, metabolic labs, etc. is indicated. A general rank ordering of antipsychotics that have the greatest to the least risk of metabolic effects is olanzapine, quetiapine, risperidone, ziprasidone, and aripiprazole. However, weight gain can occur with all of these drugs and considerable variability exists among patients receiving the same drug regarding the risk of metabolic effects. Anti-psychotic agents not only increase the risk of metabolic disorder, they also increase the risk of CVA, akathisia, and movement disorders including EPS or tardive dyskinesia (more common with first generation antipsychotics) and more. Medication Management and Follow-Up - Plan: - Schedule follow-up appointments every 1-3 months to monitor the patient's response to the medication regimen. - Reinforce the importance of avoiding recreational drug use due to potential neurotoxicity and interactions with prescribed medications. 01/18/2025 Primary insomnia (ICD-10 - F51.01) Insomnia: Care Instructions material was published, Learning About Sleeping Well material was published, Insomnia: Care Instructions material was published, Learning About Sleeping Well material was published 1. Bipolar- depression and sleep issues Wellbutrin XL 150 MG DAILY in am,- MAY STOP IN NEAR FUTURE Cymbalta 30 mg daily- (patient reported tolerated 30 mg BID in past - nausea at 60 mg PO QD) patient has depression and anxiety with political situational and in therapy will work on coping skills, discuss and educated on Cymbalta (good response in past 30 mg BID dose) for depression and anxiety and also help her chronic pain, Seroquel 400 mg bedtime AIMS= 0 08/24/24 Missing teeth 2.Anxiety- therapy 3. ADD- Straterra 40 mg daily in am 4. Primary Insomnia- sleep hygiene on Seroquel will also help sleep 5.PTSD- therapy labs 04/24 PCP obtain 6. tobacco use Do not smoke. Nicotine and other chemicals in cigarettes and cigars can cause lung damage. Ask your healthcare provider for information if you currently smoke and need help to quit. E-cigarettes or smokeless tobacco still contain nicotine. Talk to your healthcare provider before you use these products. education on decrease to stopping nicotine products and stop smoking hotline given Quit - Yes [place] Tobacco Quitline Call a Smoking Quitline The [employer] [place]'s Smoking Quitline, (4-992-24D-QUIT) Smokefree.gov, which connects you with your State's Quitline, (3-650-ZTHBBUZ) [facility] Smoking Quitline, (1-067-DOYOZNF) 8. Cannabis use Recommend decrease/stop cannabis use as it can negatively impact mood, motivation, anxiety, sleep, focus/concentrat ion/memory (vigilance, elasticity, processing and attention); can also contribute to development of psychosis. http_s://www.nim h.nih.gov/health /topics/mental-h ealth-medication s http_s://www.nam i.org/About-Ment al-Illness/Treat ments/Mental-Hea lth-Medications Recommend decrease/stop cannabis use as it may be negatively impacting mood, motivation, anxiety, sleep, focus; can also contribute to development of psychosis Cannabis/marijua na information: http_s://gely.ni h.gov/publicatio ns/drugfacts/can nabis-marijuana http_s://www.[employer]/can hfsit-gzr-zdvzyo md-dqrhajglq-ilv d/ 8. HTN on B/P RX and see PCP educated on healthy b/p 120/80 monitor b/p at home refer to PCP, Urgent care/ER heart healthy diet and excise limit salt intake limit soda intake and caffiene increase water educated on all medications, benefits, side effects and risk, and educated on depression, anxiety, and ADHD, mood d/o and educated on compliance of medications, metabolic and movement d/o education appointment is, continue therapy discussion with patient about course of treatment and patient instructions. education on serotonin syndrome SSRI/SNRI side effects discussed including but not limited to, gastric upset, nausea, vomiting, diarrhea and/or constipation, weight changes, sexual side effects including loss of libido, increased suicidal thoughts/behavio rs in children and young adults, and serotonin syndrome. Patient educated on all medications including potential benefits, side effects, risks. Educated on proper dosing schedule and importance of compliance Second generation antipsychotics (SGAs) have metabolic syndrome issues with weight gain, increase in prolactin, increased waist circumference, increased lipids, and increased glucose. Thus routine monitoring of weight, metabolic labs, etc. is indicated. A general rank ordering of antipsychotics that have the greatest to the least risk of metabolic effects is olanzapine, quetiapine, risperidone, ziprasidone, and aripiprazole. However, weight gain can occur with all of these drugs and considerable variability exists among patients receiving the same drug regarding the risk of metabolic effects. Anti-psychotic agents not only increase the risk of metabolic disorder, they also increase the risk of CVA, akathisia, and movement disorders including EPS or tardive dyskinesia (more common with first generation antipsychotics) and more. Medication Management and Follow-Up - Plan: - Schedule follow-up appointments every 1-3 months to monitor the patient's response to the medication regimen. - Reinforce the importance of avoiding recreational drug use due to potential neurotoxicity and interactions with prescribed medications. 01/10/2025 Nicotine use (ICD-10 - Z72.0) 01/18/2025 Bipolar disorder with moderate depression (ICD-10 - F31.32) 1. Bipolar- depression and sleep issues Wellbutrin XL 150 MG DAILY in am,- MAY STOP IN NEAR FUTURE Cymbalta 30 mg daily- (patient reported tolerated 30 mg BID in past - nausea at 60 mg PO QD) patient has depression and anxiety with political situational and in therapy will work on coping skills, discuss and educated on Cymbalta (good response in past 30 mg BID dose) for depression and anxiety and also help her chronic pain, Seroquel 400 mg bedtime AIMS= 0 08/24/24 Missing teeth 2.Anxiety- therapy 3. ADD- Straterra 40 mg daily in am 4. Primary Insomnia- sleep hygiene on Seroquel will also help sleep 5.PTSD- therapy labs 04/24 PCP obtain 6. tobacco use Do not smoke. Nicotine and other chemicals in cigarettes and cigars can cause lung damage. Ask your healthcare provider for information if you currently smoke and need help to quit. E-cigarettes or smokeless tobacco still contain nicotine. Talk to your healthcare provider before you use these products. education on decrease to stopping nicotine products and stop smoking hotline given Quit - Yes [place] Tobacco Quitline Call a Smoking Quitline The [employer] [place] Smoking Quitline, (8-209-92W-QUIT) Smokefree.gov, which connects you with your State's Quitline, (7-839-YNFTOLG) [facility] Smoking Quitline, (8-1100-314-JGBCIEV) 8. Cannabis use Recommend decrease/stop cannabis use as it can negatively impact mood, motivation, anxiety, sleep, focus/concentrat ion/memory (vigilance, elasticity, processing and attention); can also contribute to development of psychosis. http_s://www.nim h.nih.gov/health /topics/mental-h ealth-medication s http_s://www.nam i.org/About-Ment al-Illness/Treat ments/Mental-Hea lth-Medications Recommend decrease/stop cannabis use as it may be negatively impacting mood, motivation, anxiety, sleep, focus; can also contribute to development of psychosis Cannabis/marijua na information: http_s://gely.ni h.gov/publicatio ns/drugfacts/can nabis-marijuana http_s://www.[employer]/can tqvbk-pkk-iuvfcj lc-lxxetmtjn-pld d/ 8. HTN on B/P RX and see PCP educated on healthy b/p 120/80 monitor b/p at home refer to PCP, Urgent care/ER heart healthy diet and excise limit salt intake limit soda intake and caffiene increase water educated on all medications, benefits, side effects and risk, and educated on depression, anxiety, and ADHD, mood d/o and educated on compliance of medications, metabolic and movement d/o education appointment is, continue therapy discussion with patient about course of treatment and patient instructions. education on serotonin syndrome SSRI/SNRI side effects discussed including but not limited to, gastric upset, nausea, vomiting, diarrhea and/or constipation, weight changes, sexual side effects including loss of libido, increased suicidal thoughts/behavio rs in children and young adults, and serotonin syndrome. Patient educated on all medications including potential benefits, side effects, risks. Educated on proper dosing schedule and importance of compliance Second generation antipsychotics (SGAs) have metabolic syndrome issues with weight gain, increase in prolactin, increased waist circumference, increased lipids, and increased glucose. Thus routine monitoring of weight, metabolic labs, etc. is indicated. A general rank ordering of antipsychotics that have the greatest to the least risk of metabolic effects is olanzapine, quetiapine, risperidone, ziprasidone, and aripiprazole. However, weight gain can occur with all of these drugs and considerable variability exists among patients receiving the same drug regarding the risk of metabolic effects. Anti-psychotic agents not only increase the risk of metabolic disorder, they also increase the risk of CVA, akathisia, and movement disorders including EPS or tardive dyskinesia (more common with first generation antipsychotics) and more. Medication Management and Follow-Up - Plan: - Schedule follow-up appointments every 1-3 months to monitor the patient's response to the medication regimen. - Reinforce the importance of avoiding recreational drug use due to potential neurotoxicity and interactions with prescribed medications. 12/07/2024 Complex posttraumatic stress disorder (ICD-10 - F43.10) Post-Traumatic Stress Disorder (PTSD): Care Instructions material was published, Post-Traumatic Stress Disorder (PTSD): Care Instructions material was published 1. Bipolar- depression and sleep issues Wellbutrin XL 150 MG DAILY in am,- MAY STOP IN NEAR FUTURE Add Cymbalta 30 mg daily- (patient reported tolerated 30 mg BID in past - nausea at 60 mg PO QD) patient has depression and anxiety with political situational and in therapy will work on coping skills, discuss and educated on Cymbalta (good response in past 30 mg BID dose) for depression and anxiety and also help her chronic pain, Seroquel 400 mg bedtime AIMS= 0 08/24/24 Missing teeth 2.Anxiety- therapy 3. ADD- Straterra 40 mg daily in am 4. Primary Insomnia- sleep hygiene on Seroquel will also help sleep 5.PTSD- therapy labs 04/24 PCP obtain 6. tobacco use Do not smoke. Nicotine and other chemicals in cigarettes and cigars can cause lung damage. Ask your healthcare provider for information if you currently smoke and need help to quit. E-cigarettes or smokeless tobacco still contain nicotine. Talk to your healthcare provider before you use these products. education on decrease to stopping nicotine products and stop smoking hotline given -Quit - Yes [place] Tobacco Quitline Call a Smoking Quitline The [employer] [place] Smoking Quitline, (7-720-97V-QUIT) Smokefree.gov, which connects you with your State's Quitline, (8-760-OPTVSLT) [facility] Smoking Quitline, (5-107-OBCUHAK) 8. Cannabis use Recommend decrease/stop cannabis use as it can negatively impact mood, motivation, anxiety, sleep, focus/concentrat ion/memory (vigilance, elasticity, processing and attention); can also contribute to development of psychosis. http_s://www.nim h.nih.gov/health /topics/mental-h ealth-medication s http_s://www.nam i.org/About-Ment al-Illness/Treat ments/Mental-Hea lth-Medications Recommend decrease/stop cannabis use as it may be negatively impacting mood, motivation, anxiety, sleep, focus; can also contribute to development of psychosis Cannabis/marijua na information: http_s://gely.ni h.gov/publicatio ns/drugfacts/can nabis-marijuana http_s://www.[employer]/can dfgzh-csp-wywhws yw-ulxaqewss-cbl d/ 8. HTN on B/P RX and see PCP educated on healthy b/p 120/80 monitor b/p at home refer to PCP, Urgent care/ER heart healthy diet and excise limit salt intake limit soda intake and caffiene increase water educated on all medications, benefits, side effects and risk, and educated on depression, anxiety, and ADHD, mood d/o and educated on compliance of medications, metabolic and movement d/o education appointment is, continue therapy discussion with patient about course of treatment and patient instructions. education on serotonin syndrome SSRI/SNRI side effects discussed including but not limited to, gastric upset, nausea, vomiting, diarrhea and/or constipation, weight changes, sexual side effects including loss of libido, increased suicidal thoughts/behavio rs in children and young adults, and serotonin syndrome. Patient educated on all medications including potential benefits, side effects, risks. Educated on proper dosing schedule and importance of compliance Second generation antipsychotics (SGAs) have metabolic syndrome issues with weight gain, increase in prolactin, increased waist circumference, increased lipids, and increased glucose. Thus routine monitoring of weight, metabolic labs, etc. is indicated. A general rank ordering of antipsychotics that have the greatest to the least risk of metabolic effects is olanzapine, quetiapine, risperidone, ziprasidone, and aripiprazole. However, weight gain can occur with all of these drugs and considerable variability exists among patients receiving the same drug regarding the risk of metabolic effects. Anti-psychotic agents not only increase the risk of metabolic disorder, they also increase the risk of CVA, akathisia, and movement disorders including EPS or tardive dyskinesia (more common with first generation antipsychotics) and more. Medication Management and Follow-Up - Plan: - Schedule follow-up appointments every 1-3 months to monitor the patient's response to the medication regimen. - Reinforce the importance of avoiding recreational drug use due to potential neurotoxicity and interactions with prescribed medications. 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 Bipolar- depression and sleep issues Wellbutrin XL 150 MG DAILY in am,- MAY STOP IN NEAR FUTURE Add Cymbalta 30 mg daily- (patient reported tolerated 30 mg BID in past - nausea at 60 mg PO QD) patient has depression and anxiety with political situational and in therapy will work on coping skills, discuss and educated on Cymbalta (good response in past 30 mg BID dose) for depression and anxiety and also help her chronic pain, Seroquel 400 mg bedtime AIMS= 0 08/24/24 Missing teeth 2.Anxiety- therapy 3. ADD- Straterra 40 mg daily in am 4. Primary Insomnia- sleep hygiene on Seroquel will also help sleep 5.PTSD- therapy labs 04/24 PCP obtain 6. tobacco use Do not smoke. Nicotine and other chemicals in cigarettes and cigars can cause lung damage. Ask your healthcare provider for information if you currently smoke and need help to quit. E-cigarettes or smokeless tobacco still contain nicotine. Talk to your healthcare provider before you use these products. education on decrease to stopping nicotine products and stop smoking hotline given Quit - Yes [place] Tobacco Quitline Call a Smoking Quitline The [employer] [place]'s Smoking Quitline, (3-409-65O-QUIT) Smokefree.gov, which connects you with your State's Quitline, (1-171-CCSIJIP) [facility] Smoking Quitline, (4-362-PATERML) 8. Cannabis use Recommend decrease/stop cannabis use as it can negatively impact mood, motivation, anxiety, sleep, focus/concentrat ion/memory (vigilance, elasticity, processing and attention); can also contribute to development of psychosis. http_s://www.nim h.nih.gov/health /topics/mental-h ealth-medication s http_s://www.nam i.org/About-Ment al-Illness/Treat ments/Mental-Hea lth-Medications Recommend decrease/stop cannabis use as it may be negatively impacting mood, motivation, anxiety, sleep, focus; can also contribute to development of psychosis Cannabis/marijua na information: http_s://gely.ni h.gov/publicatio ns/drugfacts/can nabis-marijuana http_s://www.[employer]/can sxjew-tqk-wzmrjk zy-wzikrrydl-krt d/ 8. HTN on B/P RX and see PCP educated on healthy b/p 120/80 monitor b/p at home refer to PCP, Urgent care/ER heart healthy diet and excise limit salt intake limit soda intake and caffiene increase water educated on all medications, benefits, side effects and risk, and educated on depression, anxiety, and ADHD, mood d/o and educated on compliance of medications, metabolic and movement d/o education appointment is, continue therapy discussion with patient about course of treatment and patient instructions. education on serotonin syndrome SSRI/SNRI side effects discussed including but not limited to, gastric upset, nausea, vomiting, diarrhea and/or constipation, weight changes, sexual side effects including loss of libido, increased suicidal thoughts/behavio rs in children and young adults, and serotonin syndrome. Patient educated on all medications including potential benefits, side effects, risks. Educated on proper dosing schedule and importance of compliance Second generation antipsychotics (SGAs) have metabolic syndrome issues with weight gain, increase in prolactin, increased waist circumference, increased lipids, and increased glucose. Thus routine monitoring of weight, metabolic labs, etc. is indicated. A general rank ordering of antipsychotics that have the greatest to the least risk of metabolic effects is olanzapine, quetiapine, risperidone, ziprasidone, and aripiprazole. However, weight gain can occur with all of these drugs and considerable variability exists among patients receiving the same drug regarding the risk of metabolic effects. Anti-psychotic agents not only increase the risk of metabolic disorder, they also increase the risk of CVA, akathisia, and movement disorders including EPS or tardive dyskinesia (more common with first generation antipsychotics) and more. Medication Management and Follow-Up - Plan: - Schedule follow-up appointments every 1-3 months to monitor the patient's response to the medication regimen. - Reinforce the importance of avoiding recreational drug use due to potential neurotoxicity and interactions with prescribed medications. 01/18/2025 Complex posttraumatic stress disorder (ICD-10 - F43.10) Post-Traumatic Stress Disorder (PTSD): Care Instructions material was published, Post-Traumatic Stress Disorder (PTSD): Care Instructions material was published 1. Bipolar- depression and sleep issues Wellbutrin XL 150 MG DAILY in am,- MAY STOP IN NEAR FUTURE Cymbalta 30 mg daily- (patient reported tolerated 30 mg BID in past - nausea at 60 mg PO QD) patient has depression and anxiety with political situational and in therapy will work on coping skills, discuss and educated on Cymbalta (good response in past 30 mg BID dose) for depression and anxiety and also help her chronic pain, Seroquel 400 mg bedtime AIMS= 0 08/24/24 Missing teeth 2.Anxiety- therapy 3. ADD- Straterra 40 mg daily in am 4. Primary Insomnia- sleep hygiene on Seroquel will also help sleep 5.PTSD- therapy labs 04/24 PCP obtain 6. tobacco use Do not smoke. Nicotine and other chemicals in cigarettes and cigars can cause lung damage. Ask your healthcare provider for information if you currently smoke and need help to quit. E-cigarettes or smokeless tobacco still contain nicotine. Talk to your healthcare provider before you use these products. education on decrease to stopping nicotine products and stop smoking hotline given Quit - Yes [place] Tobacco Quitline Call a Smoking Quitline The [employer] [place] Smoking Quitline, (5-729-33N-QUIT) Smokefree.gov, which connects you with your State's Quitline, (7-515-IQDARVE) [facility] Smoking Quitline, (9-514-KOMAIZQ) 8. Cannabis use Recommend decrease/stop cannabis use as it can negatively impact mood, motivation, anxiety, sleep, focus/concentrat ion/memory (vigilance, elasticity, processing and attention); can also contribute to development of psychosis. http_s://www.nim h.nih.gov/health /topics/mental-h ealth-medication s http_s://www.nam i.org/About-Ment al-Illness/Treat ments/Mental-Hea lth-Medications Recommend decrease/stop cannabis use as it may be negatively impacting mood, motivation, anxiety, sleep, focus; can also contribute to development of psychosis Cannabis/marijua na information: http_s://gely.ni h.gov/publicatio ns/drugfacts/can nabis-marijuana http_s://www.[employer]/can acqhx-amx-lsdgoz up-ehkjlyktn-hiv d/ 8. HTN on B/P RX and see PCP educated on healthy b/p 120/80 monitor b/p at home refer to PCP, Urgent care/ER heart healthy diet and excise limit salt intake limit soda intake and caffiene increase water educated on all medications, benefits, side effects and risk, and educated on depression, anxiety, and ADHD, mood d/o and educated on compliance of medications, metabolic and movement d/o education appointment is, continue therapy discussion with patient about course of treatment and patient instructions. education on serotonin syndrome SSRI/SNRI side effects discussed including but not limited to, gastric upset, nausea, vomiting, diarrhea and/or constipation, weight changes, sexual side effects including loss of libido, increased suicidal thoughts/behavio rs in children and young adults, and serotonin syndrome. Patient educated on all medications including potential benefits, side effects, risks. Educated on proper dosing schedule and importance of compliance Second generation antipsychotics (SGAs) have metabolic syndrome issues with weight gain, increase in prolactin, increased waist circumference, increased lipids, and increased glucose. Thus routine monitoring of weight, metabolic labs, etc. is indicated. A general rank ordering of antipsychotics that have the greatest to the least risk of metabolic effects is olanzapine, quetiapine, risperidone, ziprasidone, and aripiprazole. However, weight gain can occur with all of these drugs and considerable variability exists among patients receiving the same drug regarding the risk of metabolic effects. Anti-psychotic agents not only increase the risk of metabolic disorder, they also increase the risk of CVA, akathisia, and movement disorders including EPS or tardive dyskinesia (more common with first generation antipsychotics) and more. Medication Management and Follow-Up - Plan: - Schedule follow-up appointments every 1-3 months to monitor the patient's response to the medication regimen. - Reinforce the importance of avoiding recreational drug use due to potential neurotoxicity and interactions with prescribed medications. 11/16/2024 Primary hypertension (ICD-10 - I10) High Blood Pressure: Care Instructions material was published, Learning About High Blood Pressure material was published, Acute High Blood Pressure: Care Instructions material was published 1. Bipolar- having increase depression and sleep issues Wellbutrin XL 150 MG DAILY in am, discuss and educated on Cymbalta (good response in past) for depression and anxiety and also help her chronic pain, will see how increase Seroquel does until next visit then re-address Cymbalta Increase Seroquel 400 mg bedtime AIMS= 0 08/24/24 Missing teeth 2.Anxiety- therapy 3. ADD- Straterra 40 mg daily in am 4. Primary Insomnia- sleep hygiene on Seroquel will also help sleep 5.PTSD- therapy labs 04/24 PCP obtain 6. tobacco use Do not smoke. Nicotine and other chemicals in cigarettes and cigars can cause lung damage. Ask your healthcare provider for information if you currently smoke and need help to quit. E-cigarettes or smokeless tobacco still contain nicotine. Talk to your healthcare provider before you use these products. education on decrease to stopping nicotine products and stop smoking hotline given -Quit - Yes [place] Tobacco Quitline Call a Smoking Quitline The [employer] [place]'s Smoking Quitline, (5-021-06I-QUIT) Smokefree.gov, which connects you with your State's Quitline, (1-645-OQBSSVC) Veterans Smoking Quitline, (9-073-XPQMZLB) 8. Cannabis use Recommend decrease/stop cannabis use as it can negatively impact mood, motivation, anxiety, sleep, focus/concentrat ion/memory (vigilance, elasticity, processing and attention); can also contribute to development of psychosis. http_s://www.nim h.nih.gov/health /topics/mental-h ealth-medication s http_s://www.nam i.org/About-Ment al-Illness/Treat ments/Mental-Hea lth-Medications Recommend decrease/stop cannabis use as it may be negatively impacting mood, motivation, anxiety, sleep, focus; can also contribute to development of psychosis Cannabis/marijua na information: http_s://gely.ni h.gov/publicatio ns/drugfacts/can nabis-marijuana http_s://www.[employer]/can ablpa-mzh-vwszws vd-gcmcmekzr-ihm d/ 8. HTN on B/P RX and see PCP educated on healthy b/p 120/80 monitor b/p at home refer to PCP, Urgent care/ER heart healthy diet and excise limit salt intake limit soda intake and caffiene increase water educated on all medications, benefits, side effects and risk, and educated on depression, anxiety, and ADHD, mood d/o and educated on compliance of medications, metabolic and movement d/o education appointment is, continue therapy discussion with patient about course of treatment and patient instructions. education on serotonin syndrome SSRI/SNRI side effects discussed including but not limited to, gastric upset, nausea, vomiting, diarrhea and/or constipation, weight changes, sexual side effects including loss of libido, increased suicidal thoughts/behavio rs in children and young adults, and serotonin syndrome. Patient educated on all medications including potential benefits, side effects, risks. Educated on proper dosing schedule and importance of compliance Second generation antipsychotics (SGAs) have metabolic syndrome issues with weight gain, increase in prolactin, increased waist circumference, increased lipids, and increased glucose. Thus routine monitoring of weight, metabolic labs, etc. is indicated. A general rank ordering of antipsychotics that have the greatest to the least risk of metabolic effects is olanzapine, quetiapine, risperidone, ziprasidone, and aripiprazole. However, weight gain can occur with all of these drugs and considerable variability exists among patients receiving the same drug regarding the risk of metabolic effects. Anti-psychotic agents not only increase the risk of metabolic disorder, they also increase the risk of CVA, akathisia, and movement disorders including EPS or tardive dyskinesia (more common with first generation antipsychotics) and more. Medication Management and Follow-Up - Plan: - Schedule follow-up appointments every 1-3 months to monitor the patient's response to the medication regimen. - Reinforce the importance of avoiding recreational drug use due to potential neurotoxicity and interactions with prescribed medications. 11/16/2024 Tobacco user (ICD-10 - Z72.0) Deciding About Using Medicines To Quit Smoking material was published, Stopping Smokeless Tobacco Use: Care Instructions material was published, Learning About Benefits of Quitting Smoking material was published, Quitting Tobacco: Care Instructions material was published 1. Bipolar- having increase depression and sleep issues Wellbutrin XL 150 MG DAILY in am, discuss and educated on Cymbalta (good response in past) for depression and anxiety and also help her chronic pain, will see how increase Seroquel does until next visit then re-address Cymbalta Increase Seroquel 400 mg bedtime AIMS= 0 08/24/24 Missing teeth 2.Anxiety- therapy 3. ADD- Straterra 40 mg daily in am 4. Primary Insomnia- sleep hygiene on Seroquel will also help sleep 5.PTSD- therapy labs 04/24 PCP obtain 6. tobacco use Do not smoke. Nicotine and other chemicals in cigarettes and cigars can cause lung damage. Ask your healthcare provider for information if you currently smoke and need help to quit. E-cigarettes or smokeless tobacco still contain nicotine. Talk to your healthcare provider before you use these products. education on decrease to stopping nicotine products and stop smoking hotline given 795-Quit - Yes [place] Tobacco Quitline Call a Smoking Quitline The [employer] [place]'s Smoking Quitline, (3-838-35U-QUIT) Smokefree.gov, which connects you with your State's Quitline, (0-396-ENGLIJO) Veterans Smoking Quitline, (4-205-LNJLJHN) 8. Cannabis use Recommend decrease/stop cannabis use as it can negatively impact mood, motivation, anxiety, sleep, focus/concentrat ion/memory (vigilance, elasticity, processing and attention); can also contribute to development of psychosis. http_s://www.nim h.nih.gov/health /topics/mental-h ealth-medication s http_s://www.nam i.org/About-Ment al-Illness/Treat ments/Mental-Hea lth-Medications Recommend decrease/stop cannabis use as it may be negatively impacting mood, motivation, anxiety, sleep, focus; can also contribute to development of psychosis Cannabis/marijua na information: http_s://gely.ni h.gov/publicatio ns/drugfacts/can nabis-marijuana http_s://www.[employer]/can glmqi-mdi-jhvnis zt-eefjkvacz-fyo d/ 8. HTN on B/P RX and see PCP educated on healthy b/p 120/80 monitor b/p at home refer to PCP, Urgent care/ER heart healthy diet and excise limit salt intake limit soda intake and caffiene increase water educated on all medications, benefits, side effects and risk, and educated on depression, anxiety, and ADHD, mood d/o and educated on compliance of medications, metabolic and movement d/o education appointment is, continue therapy discussion with patient about course of treatment and patient instructions. education on serotonin syndrome SSRI/SNRI side effects discussed including but not limited to, gastric upset, nausea, vomiting, diarrhea and/or constipation, weight changes, sexual side effects including loss of libido, increased suicidal thoughts/behavio rs in children and young adults, and serotonin syndrome. Patient educated on all medications including potential benefits, side effects, risks. Educated on proper dosing schedule and importance of compliance Second generation antipsychotics (SGAs) have metabolic syndrome issues with weight gain, increase in prolactin, increased waist circumference, increased lipids, and increased glucose. Thus routine monitoring of weight, metabolic labs, etc. is indicated. A general rank ordering of antipsychotics that have the greatest to the least risk of metabolic effects is olanzapine, quetiapine, risperidone, ziprasidone, and aripiprazole. However, weight gain can occur with all of these drugs and considerable variability exists among patients receiving the same drug regarding the risk of metabolic effects. Anti-psychotic agents not only increase the risk of metabolic disorder, they also increase the risk of CVA, akathisia, and movement disorders including EPS or tardive dyskinesia (more common with first generation antipsychotics) and more. Medication Management and Follow-Up - Plan: - Schedule follow-up appointments every 1-3 months to monitor the patient's response to the medication regimen. - Reinforce the importance of avoiding recreational drug use due to potential neurotoxicity and interactions with prescribed medications. 01/18/2025 Other fpc (current) drug therapy (ICD-10 - Z79.899) Medication Refill: Care Instructions material was published, Medication Refill: Care Instructions material was published 1. Bipolar- depression and sleep issues Wellbutrin XL 150 MG DAILY in am,- MAY STOP IN NEAR FUTURE Cymbalta 30 mg daily- (patient reported tolerated 30 mg BID in past - nausea at 60 mg PO QD) patient has depression and anxiety with political situational and in therapy will work on coping skills, discuss and educated on Cymbalta (good response in past 30 mg BID dose) for depression and anxiety and also help her chronic pain, Seroquel 400 mg bedtime AIMS= 0 08/24/24 Missing teeth 2.Anxiety- therapy 3. ADD- Straterra 40 mg daily in am 4. Primary Insomnia- sleep hygiene on Seroquel will also help sleep 5.PTSD- therapy labs 04/24 PCP obtain 6. tobacco use Do not smoke. Nicotine and other chemicals in cigarettes and cigars can cause lung damage. Ask your healthcare provider for information if you currently smoke and need help to quit. E-cigarettes or smokeless tobacco still contain nicotine. Talk to your healthcare provider before you use these products. education on decrease to stopping nicotine products and stop smoking hotline given 929Quit - Yes [place] Tobacco Quitline Call a Smoking Quitline The [employer] [place]'s Smoking Quitline, (6-147-71K-QUIT) Smokefree.gov, which connects you with your State's Quitline, (6-476-CIYKTRW) Veterans Smoking Quitline, (8-927-NFKIFFU) 8. Cannabis use Recommend decrease/stop cannabis use as it can negatively impact mood, motivation, anxiety, sleep, focus/concentrat ion/memory (vigilance, elasticity, processing and attention); can also contribute to development of psychosis. http_s://www.nim h.nih.gov/health /topics/mental-h ealth-medication s http_s://www.nam i.org/About-Ment al-Illness/Treat ments/Mental-[facility] [place]-Medications Recommend decrease/stop cannabis use as it may be negatively impacting mood, motivation, anxiety, sleep, focus; can also contribute to development of psychosis Cannabis/marijua na information: http_s://gely.ni h.gov/publicatio ns/drugfacts/can nabis-marijuana http_s://www.[employer]/can jndhq-ktb-xwapkp hw-bmswqgsjp-gyp d/ 8. HTN on B/P RX and see PCP educated on healthy b/p 120/80 monitor b/p at home refer to PCP, Urgent care/ER heart healthy diet and excise limit salt intake limit soda intake and caffiene increase water educated on all medications, benefits, side effects and risk, and educated on depression, anxiety, and ADHD, mood d/o and educated on compliance of medications, metabolic and movement d/o education appointment is, continue therapy discussion with patient about course of treatment and patient instructions. education on serotonin syndrome SSRI/SNRI side effects discussed including but not limited to, gastric upset, nausea, vomiting, diarrhea and/or constipation, weight changes, sexual side effects including loss of libido, increased suicidal thoughts/behavio rs in children and young adults, and serotonin syndrome. Patient educated on all medications including potential benefits, side effects, risks. Educated on proper dosing schedule and importance of compliance Second generation antipsychotics (SGAs) have metabolic syndrome issues with weight gain, increase in prolactin, increased waist circumference, increased lipids, and increased glucose. Thus routine monitoring of weight, metabolic labs, etc. is indicated. A general rank ordering of antipsychotics that have the greatest to the least risk of metabolic effects is olanzapine, quetiapine, risperidone, ziprasidone, and aripiprazole. However, weight gain can occur with all of these drugs and considerable variability exists among patients receiving the same drug regarding the risk of metabolic effects. Anti-psychotic agents not only increase the risk of metabolic disorder, they also increase the risk of CVA, akathisia, and movement disorders including EPS or tardive dyskinesia (more common with first generation antipsychotics) and more. Medication Management and Follow-Up - Plan: - Schedule follow-up appointments every 1-3 months to monitor the patient's response to the medication regimen. - Reinforce the importance of avoiding recreational drug use due to potential neurotoxicity and interactions with prescribed medications. 12/07/2024 Primary hypertension (ICD-10 - I10) High Blood Pressure: Care Instructions material was published, Learning About High Blood Pressure material was published, Acute High Blood Pressure: Care Instructions material was published 1. Bipolar- depression and sleep issues Wellbutrin XL 150 MG DAILY in am,- MAY STOP IN NEAR FUTURE Add Cymbalta 30 mg daily- (patient reported tolerated 30 mg BID in past - nausea at 60 mg PO QD) patient has depression and anxiety with political situational and in therapy will work on coping skills, discuss and educated on Cymbalta (good response in past 30 mg BID dose) for depression and anxiety and also help her chronic pain, Seroquel 400 mg bedtime AIMS= 0 08/24/24 Missing teeth 2.Anxiety- therapy 3. ADD- Straterra 40 mg daily in am 4. Primary Insomnia- sleep hygiene on Seroquel will also help sleep 5.PTSD- therapy labs 04/24 PCP obtain 6. tobacco use Do not smoke. Nicotine and other chemicals in cigarettes and cigars can cause lung damage. Ask your healthcare provider for information if you currently smoke and need help to quit. E-cigarettes or smokeless tobacco still contain nicotine. Talk to your healthcare provider before you use these products. education on decrease to stopping nicotine products and stop smoking hotline given 484-Quit - Yes [place] Tobacco Quitline Call a Smoking Quitline The [employer] [place]'s Smoking Quitline, (9-764-58X-QUIT) Smokefree.gov, which connects you with your State's Quitline, (3-346-UIQGEVY) Veterans Smoking Quitline, (1-086-TUMCUNG) 8. Cannabis use Recommend decrease/stop cannabis use as it can negatively impact mood, motivation, anxiety, sleep, focus/concentrat ion/memory (vigilance, elasticity, processing and attention); can also contribute to development of psychosis. http_s://www.nim h.nih.gov/health /topics/mental-h ealth-medication s http_s://www.nam i.org/About-Ment al-Illness/Treat ments/Mental-[facility] [place]-Medications Recommend decrease/stop cannabis use as it may be negatively impacting mood, motivation, anxiety, sleep, focus; can also contribute to development of psychosis Cannabis/marijua na information: http_s://gely.ni h.gov/publicatio ns/drugfacts/can nabis-marijuana http_s://www.[employer]/can kvfsg-yut-xunpxk fu-lmstqnqsi-lho d/ 8. HTN on B/P RX and see PCP educated on healthy b/p 120/80 monitor b/p at home refer to PCP, Urgent care/ER heart healthy diet and excise limit salt intake limit soda intake and caffiene increase water educated on all medications, benefits, side effects and risk, and educated on depression, anxiety, and ADHD, mood d/o and educated on compliance of medications, metabolic and movement d/o education appointment is, continue therapy discussion with patient about course of treatment and patient instructions. education on serotonin syndrome SSRI/SNRI side effects discussed including but not limited to, gastric upset, nausea, vomiting, diarrhea and/or constipation, weight changes, sexual side effects including loss of libido, increased suicidal thoughts/behavio rs in children and young adults, and serotonin syndrome. Patient educated on all medications including potential benefits, side effects, risks. Educated on proper dosing schedule and importance of compliance Second generation antipsychotics (SGAs) have metabolic syndrome issues with weight gain, increase in prolactin, increased waist circumference, increased lipids, and increased glucose. Thus routine monitoring of weight, metabolic labs, etc. is indicated. A general rank ordering of antipsychotics that have the greatest to the least risk of metabolic effects is olanzapine, quetiapine, risperidone, ziprasidone, and aripiprazole. However, weight gain can occur with all of these drugs and considerable variability exists among patients receiving the same drug regarding the risk of metabolic effects. Anti-psychotic agents not only increase the risk of metabolic disorder, they also increase the risk of CVA, akathisia, and movement disorders including EPS or tardive dyskinesia (more common with first generation antipsychotics) and more. Medication Management and Follow-Up - Plan: - Schedule follow-up appointments every 1-3 months to monitor the patient's response to the medication regimen. - Reinforce the importance of avoiding recreational drug use due to potential neurotoxicity and interactions with prescribed medications. 12/07/2024 Tobacco user (ICD-10 - Z72.0) Deciding About Using Medicines To Quit Smoking material was published, Stopping Smokeless Tobacco Use: Care Instructions material was published, Learning About Benefits of Quitting Smoking material was published, Quitting Tobacco: Care Instructions material was published 1. Bipolar- depression and sleep issues Wellbutrin XL 150 MG DAILY in am,- MAY STOP IN NEAR FUTURE Add Cymbalta 30 mg daily- (patient reported tolerated 30 mg BID in past - nausea at 60 mg PO QD) patient has depression and anxiety with political situational and in therapy will work on coping skills, discuss and educated on Cymbalta (good response in past 30 mg BID dose) for depression and anxiety and also help her chronic pain, Seroquel 400 mg bedtime AIMS= 0 08/24/24 Missing teeth 2.Anxiety- therapy 3. ADD- Straterra 40 mg daily in am 4. Primary Insomnia- sleep hygiene on Seroquel will also help sleep 5.PTSD- therapy labs 04/24 PCP obtain 6. tobacco use Do not smoke. Nicotine and other chemicals in cigarettes and cigars can cause lung damage. Ask your healthcare provider for information if you currently smoke and need help to quit. E-cigarettes or smokeless tobacco still contain nicotine. Talk to your healthcare provider before you use these products. education on decrease to stopping nicotine products and stop smoking hotline given 567-Quit - Yes [place] Tobacco Quitline Call a Smoking Quitline The [employer] [place]'s Smoking Quitline, (2-361-31O-QUIT) Smokefree.gov, which connects you with your State's Quitline, (1-831-HCQHVXQ) Veterans Smoking Quitline, (2-409-XSTIJYL) 8. Cannabis use Recommend decrease/stop cannabis use as it can negatively impact mood, motivation, anxiety, sleep, focus/concentrat ion/memory (vigilance, elasticity, processing and attention); can also contribute to development of psychosis. http_s://www.nim h.nih.gov/health /topics/mental-h ealth-medication s http_s://www.nam i.org/About-Ment al-Illness/Treat ments/Mental-[facility] [place]-Medications Recommend decrease/stop cannabis use as it may be negatively impacting mood, motivation, anxiety, sleep, focus; can also contribute to development of psychosis Cannabis/marijua na information: http_s://gely.ni h.gov/publicatio ns/drugfacts/can nabis-marijuana http_s://www.[employer]/can jhisq-clm-ukcnlu rq-qcdkrzdxh-sar d/ 8. HTN on B/P RX and see PCP educated on healthy b/p 120/80 monitor b/p at home refer to PCP, Urgent care/ER heart healthy diet and excise limit salt intake limit soda intake and caffiene increase water educated on all medications, benefits, side effects and risk, and educated on depression, anxiety, and ADHD, mood d/o and educated on compliance of medications, metabolic and movement d/o education appointment is, continue therapy discussion with patient about course of treatment and patient instructions. education on serotonin syndrome SSRI/SNRI side effects discussed including but not limited to, gastric upset, nausea, vomiting, diarrhea and/or constipation, weight changes, sexual side effects including loss of libido, increased suicidal thoughts/behavio rs in children and young adults, and serotonin syndrome. Patient educated on all medications including potential benefits, side effects, risks. Educated on proper dosing schedule and importance of compliance Second generation antipsychotics (SGAs) have metabolic syndrome issues with weight gain, increase in prolactin, increased waist circumference, increased lipids, and increased glucose. Thus routine monitoring of weight, metabolic labs, etc. is indicated. A general rank ordering of antipsychotics that have the greatest to the least risk of metabolic effects is olanzapine, quetiapine, risperidone, ziprasidone, and aripiprazole. However, weight gain can occur with all of these drugs and considerable variability exists among patients receiving the same drug regarding the risk of metabolic effects. Anti-psychotic agents not only increase the risk of metabolic disorder, they also increase the risk of CVA, akathisia, and movement disorders including EPS or tardive dyskinesia (more common with first generation antipsychotics) and more. Medication Management and Follow-Up - Plan: - Schedule follow-up appointments every 1-3 months to monitor the patient's response to the medication regimen. - Reinforce the importance of avoiding recreational drug use due to potential neurotoxicity and interactions with prescribed medications. 01/18/2025 Primary hypertension (ICD-10 - I10) High Blood Pressure: Care Instructions material was published, Learning About High Blood Pressure material was published, Acute High Blood Pressure: Care Instructions material was published 1. Bipolar- depression and sleep issues Wellbutrin XL 150 MG DAILY in am,- MAY STOP IN NEAR FUTURE Cymbalta 30 mg daily- (patient reported tolerated 30 mg BID in past - nausea at 60 mg PO QD) patient has depression and anxiety with political situational and in therapy will work on coping skills, discuss and educated on Cymbalta (good response in past 30 mg BID dose) for depression and anxiety and also help her chronic pain, Seroquel 400 mg bedtime AIMS= 0 08/24/24 Missing teeth 2.Anxiety- therapy 3. ADD- Straterra 40 mg daily in am 4. Primary Insomnia- sleep hygiene on Seroquel will also help sleep 5.PTSD- therapy labs 04/24 PCP obtain 6. tobacco use Do not smoke. Nicotine and other chemicals in cigarettes and cigars can cause lung damage. Ask your healthcare provider for information if you currently smoke and need help to quit. E-cigarettes or smokeless tobacco still contain nicotine. Talk to your healthcare provider before you use these products. education on decrease to stopping nicotine products and stop smoking hotline given 091Quit - Yes [place] Tobacco Quitline Call a Smoking Quitline The [employer] [facility] [place] Smoking Quitline, (0-584-53D-QUIT) Smokefree.gov, which connects you with your State's Quitline, (9-863-TALPKZK) [facility] Smoking Quitline, (6-790-VSCHVGB) 8. Cannabis use Recommend decrease/stop cannabis use as it can negatively impact mood, motivation, anxiety, sleep, focus/concentrat ion/memory (vigilance, elasticity, processing and attention); can also contribute to development of psychosis. http_s://www.nim h.nih.gov/health /topics/mental-h ealth-medication s http_s://www.nam i.org/About-Ment al-Illness/Treat ments/Mental-Hea lth-Medications Recommend decrease/stop cannabis use as it may be negatively impacting mood, motivation, anxiety, sleep, focus; can also contribute to development of psychosis Cannabis/marijua na information: http_s://gely.ni h.gov/publicatio ns/drugfacts/can nabis-marijuana http_s://www.[employer]/can modwx-njc-dpffun ct-nogieiiou-ykj d/ 8. HTN on B/P RX and see PCP educated on healthy b/p 120/80 monitor b/p at home refer to PCP, Urgent care/ER heart healthy diet and excise limit salt intake limit soda intake and caffiene increase water educated on all medications, benefits, side effects and risk, and educated on depression, anxiety, and ADHD, mood d/o and educated on compliance of medications, metabolic and movement d/o education appointment is, continue therapy discussion with patient about course of treatment and patient instructions. education on serotonin syndrome SSRI/SNRI side effects discussed including but not limited to, gastric upset, nausea, vomiting, diarrhea and/or constipation, weight changes, sexual side effects including loss of libido, increased suicidal thoughts/behavio rs in children and young adults, and serotonin syndrome. Patient educated on all medications including potential benefits, side effects, risks. Educated on proper dosing schedule and importance of compliance Second generation antipsychotics (SGAs) have metabolic syndrome issues with weight gain, increase in prolactin, increased waist circumference, increased lipids, and increased glucose. Thus routine monitoring of weight, metabolic labs, etc. is indicated. A general rank ordering of antipsychotics that have the greatest to the least risk of metabolic effects is olanzapine, quetiapine, risperidone, ziprasidone, and aripiprazole. However, weight gain can occur with all of these drugs and considerable variability exists among patients receiving the same drug regarding the risk of metabolic effects. Anti-psychotic agents not only increase the risk of metabolic disorder, they also increase the risk of CVA, akathisia, and movement disorders including EPS or tardive dyskinesia (more common with first generation antipsychotics) and more. Medication Management and Follow-Up - Plan: - Schedule follow-up appointments every 1-3 months to monitor the patient's response to the medication regimen. - Reinforce the importance of avoiding recreational drug use due to potential neurotoxicity and interactions with prescribed medications. 11/16/2024 Marijuana use (ICD-10 - F12.90) Marijuana Use: Care Instructions material was published, Learning About Cannabis Use Disorder material was published 1. Bipolar- having increase depression and sleep issues Wellbutrin XL 150 MG DAILY in am, discuss and educated on Cymbalta (good response in past) for depression and anxiety and also help her chronic pain, will see how increase Seroquel does until next visit then re-address Cymbalta Increase Seroquel 400 mg bedtime AIMS= 0 08/24/24 Missing teeth 2.Anxiety- therapy 3. ADD- Straterra 40 mg daily in am 4. Primary Insomnia- sleep hygiene on Seroquel will also help sleep 5.PTSD- therapy labs 04/24 PCP obtain 6. tobacco use Do not smoke. Nicotine and other chemicals in cigarettes and cigars can cause lung damage. Ask your healthcare provider for information if you currently smoke and need help to quit. E-cigarettes or smokeless tobacco still contain nicotine. Talk to your healthcare provider before you use these products. education on decrease to stopping nicotine products and stop smoking hotline given 988-Quit - Yes [place] Tobacco Quitline Call a Smoking Quitline The [employer] [facility] [place] Smoking Quitline, (2-214-10D-QUIT) Smokefree.gov, which connects you with your State's Quitline, (3-027-XNWTGUQ) [facility] Smoking Quitline, (2-483-GDJJCSC) 8. Cannabis use Recommend decrease/stop cannabis use as it can negatively impact mood, motivation, anxiety, sleep, focus/concentrat ion/memory (vigilance, elasticity, processing and attention); can also contribute to development of psychosis. http_s://www.nim h.nih.gov/health /topics/mental-h ealth-medication s http_s://www.nam i.org/About-Ment al-Illness/Treat ments/Mental-Hea lth-Medications Recommend decrease/stop cannabis use as it may be negatively impacting mood, motivation, anxiety, sleep, focus; can also contribute to development of psychosis Cannabis/marijua na information: http_s://gely.ni h.gov/publicatio ns/drugfacts/can nabis-marijuana http_s://www.[employer]/can wmnro-apy-psljiw gq-fbxhwzgxd-rza d/ 8. HTN on B/P RX and see PCP educated on healthy b/p 120/80 monitor b/p at home refer to PCP, Urgent care/ER heart healthy diet and excise limit salt intake limit soda intake and caffiene increase water educated on all medications, benefits, side effects and risk, and educated on depression, anxiety, and ADHD, mood d/o and educated on compliance of medications, metabolic and movement d/o education appointment is, continue therapy discussion with patient about course of treatment and patient instructions. education on serotonin syndrome SSRI/SNRI side effects discussed including but not limited to, gastric upset, nausea, vomiting, diarrhea and/or constipation, weight changes, sexual side effects including loss of libido, increased suicidal thoughts/behavio rs in children and young adults, and serotonin syndrome. Patient educated on all medications including potential benefits, side effects, risks. Educated on proper dosing schedule and importance of compliance Second generation antipsychotics (SGAs) have metabolic syndrome issues with weight gain, increase in prolactin, increased waist circumference, increased lipids, and increased glucose. Thus routine monitoring of weight, metabolic labs, etc. is indicated. A general rank ordering of antipsychotics that have the greatest to the least risk of metabolic effects is olanzapine, quetiapine, risperidone, ziprasidone, and aripiprazole. However, weight gain can occur with all of these drugs and considerable variability exists among patients receiving the same drug regarding the risk of metabolic effects. Anti-psychotic agents not only increase the risk of metabolic disorder, they also increase the risk of CVA, akathisia, and movement disorders including EPS or tardive dyskinesia (more common with first generation antipsychotics) and more. Medication Management and Follow-Up - Plan: - Schedule follow-up appointments every 1-3 months to monitor the patient's response to the medication regimen. - Reinforce the importance of avoiding recreational drug use due to potential neurotoxicity and interactions with prescribed medications. 01/18/2025 Tobacco user (ICD-10 - Z72.0) Deciding About Using Medicines To Quit Smoking material was published, Stopping Smokeless Tobacco Use: Care Instructions material was published, Learning About Benefits of Quitting Smoking material was published, Quitting Tobacco: Care Instructions material was published 1. Bipolar- depression and sleep issues Wellbutrin XL 150 MG DAILY in am,- MAY STOP IN NEAR FUTURE Cymbalta 30 mg daily- (patient reported tolerated 30 mg BID in past - nausea at 60 mg PO QD) patient has depression and anxiety with political situational and in therapy will work on coping skills, discuss and educated on Cymbalta (good response in past 30 mg BID dose) for depression and anxiety and also help her chronic pain, Seroquel 400 mg bedtime AIMS= 0 08/24/24 Missing teeth 2.Anxiety- therapy 3. ADD- Straterra 40 mg daily in am 4. Primary Insomnia- sleep hygiene on Seroquel will also help sleep 5.PTSD- therapy labs 04/24 PCP obtain 6. tobacco use Do not smoke. Nicotine and other chemicals in cigarettes and cigars can cause lung damage. Ask your healthcare provider for information if you currently smoke and need help to quit. E-cigarettes or smokeless tobacco still contain nicotine. Talk to your healthcare provider before you use these products. education on decrease to stopping nicotine products and stop smoking hotline given 525-Quit - Yes [place] Tobacco Quitline Call a Smoking Quitline The [employer] [facility] [place] Smoking Quitline, (2-710-89T-QUIT) Smokefree.gov, which connects you with your [facility]'s Quitline, (8-094-FEGALSF) [facility] Smoking Quitline, (7-109-ZWMPDYD) 8. Cannabis use Recommend decrease/stop cannabis use as it can negatively impact mood, motivation, anxiety, sleep, focus/concentrat ion/memory (vigilance, elasticity, processing and attention); can also contribute to development of psychosis. http_s://www.nim h.nih.gov/health /topics/mental-h ealth-medication s http_s://www.nam i.org/About-Ment al-Illness/Treat ments/Mental-Hea lth-Medications Recommend decrease/stop cannabis use as it may be negatively impacting mood, motivation, anxiety, sleep, focus; can also contribute to development of psychosis Cannabis/marijua na information: http_s://gely.ni h.gov/publicatio ns/drugfacts/can nabis-marijuana http_s://www.[employer]/can ehaoe-vvl-fdfmzr yi-sezyibjmn-xdk d/ 8. HTN on B/P RX and see PCP educated on healthy b/p 120/80 monitor b/p at home refer to PCP, Urgent care/ER heart healthy diet and excise limit salt intake limit soda intake and caffiene increase water educated on all medications, benefits, side effects and risk, and educated on depression, anxiety, and ADHD, mood d/o and educated on compliance of medications, metabolic and movement d/o education appointment is, continue therapy discussion with patient about course of treatment and patient instructions. education on serotonin syndrome SSRI/SNRI side effects discussed including but not limited to, gastric upset, nausea, vomiting, diarrhea and/or constipation, weight changes, sexual side effects including loss of libido, increased suicidal thoughts/behavio rs in children and young adults, and serotonin syndrome. Patient educated on all medications including potential benefits, side effects, risks. Educated on proper dosing schedule and importance of compliance Second generation antipsychotics (SGAs) have metabolic syndrome issues with weight gain, increase in prolactin, increased waist circumference, increased lipids, and increased glucose. Thus routine monitoring of weight, metabolic labs, etc. is indicated. A general rank ordering of antipsychotics that have the greatest to the least risk of metabolic effects is olanzapine, quetiapine, risperidone, ziprasidone, and aripiprazole. However, weight gain can occur with all of these drugs and considerable variability exists among patients receiving the same drug regarding the risk of metabolic effects. Anti-psychotic agents not only increase the risk of metabolic disorder, they also increase the risk of CVA, akathisia, and movement disorders including EPS or tardive dyskinesia (more common with first generation antipsychotics) and more. Medication Management and Follow-Up - Plan: - Schedule follow-up appointments every 1-3 months to monitor the patient's response to the medication regimen. - Reinforce the importance of avoiding recreational drug use due to potential neurotoxicity and interactions with prescribed medications. 12/07/2024 Marijuana use (ICD-10 - F12.90) Marijuana Use: Care Instructions material was published, Learning About Cannabis Use Disorder material was published 1. Bipolar- depression and sleep issues Wellbutrin XL 150 MG DAILY in am,- MAY STOP IN NEAR FUTURE Add Cymbalta 30 mg daily- (patient reported tolerated 30 mg BID in past - nausea at 60 mg PO QD) patient has depression and anxiety with political situational and in therapy will work on coping skills, discuss and educated on Cymbalta (good response in past 30 mg BID dose) for depression and anxiety and also help her chronic pain, Seroquel 400 mg bedtime AIMS= 0 08/24/24 Missing teeth 2.Anxiety- therapy 3. ADD- Straterra 40 mg daily in am 4. Primary Insomnia- sleep hygiene on Seroquel will also help sleep 5.PTSD- therapy labs 04/24 PCP obtain 6. tobacco use Do not smoke. Nicotine and other chemicals in cigarettes and cigars can cause lung damage. Ask your healthcare provider for information if you currently smoke and need help to quit. E-cigarettes or smokeless tobacco still contain nicotine. Talk to your healthcare provider before you use these products. education on decrease to stopping nicotine products and stop smoking hotline given 204-Quit - Yes [place] Tobacco Quitline Call a Smoking Quitline The [employer] [facility] [place] Smoking Quitline, (7-098-77S-QUIT) Smokefree.gov, which connects you with your State's Quitline, (6-406-YFMIKHD) [facility] Smoking Quit[facility], (7-055-YPNJLDA) 8. Cannabis use Recommend decrease/stop cannabis use as it can negatively impact mood, motivation, anxiety, sleep, focus/concentrat ion/memory (vigilance, elasticity, processing and attention); can also contribute to development of psychosis. http_s://www.nim h.nih.gov/health /topics/mental-h ealth-medication s http_s://www.nam i.org/About-Ment al-Illness/Treat ments/Mental-Hea lth-Medications Recommend decrease/stop cannabis use as it may be negatively impacting mood, motivation, anxiety, sleep, focus; can also contribute to development of psychosis Cannabis/marijua na information: http_s://gely.ni h.gov/publicatio ns/drugfacts/can nabis-marijuana http_s://www.[employer]/can kxixd-vqa-furjbf oa-qxvixqkvx-zzh d/ 8. HTN on B/P RX and see PCP educated on healthy b/p 120/80 monitor b/p at home refer to PCP, Urgent care/ER heart healthy diet and excise limit salt intake limit soda intake and caffiene increase water educated on all medications, benefits, side effects and risk, and educated on depression, anxiety, and ADHD, mood d/o and educated on compliance of medications, metabolic and movement d/o education appointment is, continue therapy discussion with patient about course of treatment and patient instructions. education on serotonin syndrome SSRI/SNRI side effects discussed including but not limited to, gastric upset, nausea, vomiting, diarrhea and/or constipation, weight changes, sexual side effects including loss of libido, increased suicidal thoughts/behavio rs in children and young adults, and serotonin syndrome. Patient educated on all medications including potential benefits, side effects, risks. Educated on proper dosing schedule and importance of compliance Second generation antipsychotics (SGAs) have metabolic syndrome issues with weight gain, increase in prolactin, increased waist circumference, increased lipids, and increased glucose. Thus routine monitoring of weight, metabolic labs, etc. is indicated. A general rank ordering of antipsychotics that have the greatest to the least risk of metabolic effects is olanzapine, quetiapine, risperidone, ziprasidone, and aripiprazole. However, weight gain can occur with all of these drugs and considerable variability exists among patients receiving the same drug regarding the risk of metabolic effects. Anti-psychotic agents not only increase the risk of metabolic disorder, they also increase the risk of CVA, akathisia, and movement disorders including EPS or tardive dyskinesia (more common with first generation antipsychotics) and more. Medication Management and Follow-Up - Plan: - Schedule follow-up appointments every 1-3 months to monitor the patient's response to the medication regimen. - Reinforce the importance of avoiding recreational drug use due to potential neurotoxicity and interactions with prescribed medications. 01/18/2025 Marijuana use (ICD-10 - F12.90) Marijuana Use: Care Instructions material was published, Learning About Cannabis Use Disorder material was published 1. Bipolar- depression and sleep issues Wellbutrin XL 150 MG DAILY in am,- MAY STOP IN NEAR FUTURE Cymbalta 30 mg daily- (patient reported tolerated 30 mg BID in past - nausea at 60 mg PO QD) patient has depression and anxiety with political situational and in therapy will work on coping skills, discuss and educated on Cymbalta (good response in past 30 mg BID dose) for depression and anxiety and also help her chronic pain, Seroquel 400 mg bedtime AIMS= 0 08/24/24 Missing teeth 2.Anxiety- therapy 3. ADD- Straterra 40 mg daily in am 4. Primary Insomnia- sleep hygiene on Seroquel will also help sleep 5.PTSD- therapy labs 04/24 PCP obtain 6. tobacco use Do not smoke. Nicotine and other chemicals in cigarettes and cigars can cause lung damage. Ask your healthcare provider for information if you currently smoke and need help to quit. E-cigarettes or smokeless tobacco still contain nicotine. Talk to your healthcare provider before you use these products. education on decrease to stopping nicotine products and stop smoking hotline given 181-Quit - Yes [place] Tobacco Quitline Call a Smoking Quitline The [employer] [facility] [place] Smoking Quitline, (8-120-86P-QUIT) Smokefree.gov, which connects you with your State's Quitline, (5-444-EGXMJZV) [facility] Smoking Quit[facility], (9-427-MQKVJWM) 8. Cannabis use Recommend decrease/stop cannabis use as it can negatively impact mood, motivation, anxiety, sleep, focus/concentrat ion/memory (vigilance, elasticity, processing and attention); can also contribute to development of psychosis. http_s://www.nim h.nih.gov/health /topics/mental-h ealth-medication s http_s://www.nam i.org/About-Ment al-Illness/Treat ments/Mental-Hea lth-Medications Recommend decrease/stop cannabis use as it may be negatively impacting mood, motivation, anxiety, sleep, focus; can also contribute to development of psychosis Cannabis/marijua na information: http_s://gely.ni h.gov/publicatio ns/drugfacts/can nabis-marijuana http_s://www.[employer]/can aemeb-guq-ewwnis uh-yosxmzjwu-fyq d/ 8. HTN on B/P RX and see PCP educated on healthy b/p 120/80 monitor b/p at home refer to PCP, Urgent care/ER heart healthy diet and excise limit salt intake limit soda intake and caffiene increase water educated on all medications, benefits, side effects and risk, and educated on depression, anxiety, and ADHD, mood d/o and educated on compliance of medications, metabolic and movement d/o education appointment is, continue therapy discussion with patient about course of treatment and patient instructions. education on serotonin syndrome SSRI/SNRI side effects discussed including but not limited to, gastric upset, nausea, vomiting, diarrhea and/or constipation, weight changes, sexual side effects including loss of libido, increased suicidal thoughts/behavio rs in children and young adults, and serotonin syndrome. Patient educated on all medications including potential benefits, side effects, risks. Educated on proper dosing schedule and importance of compliance Second generation antipsychotics (SGAs) have metabolic syndrome issues with weight gain, increase in prolactin, increased waist circumference, increased lipids, and increased glucose. Thus routine monitoring of weight, metabolic labs, etc. is indicated. A general rank ordering of antipsychotics that have the greatest to the least risk of metabolic effects is olanzapine, quetiapine, risperidone, ziprasidone, and aripiprazole. However, weight gain can occur with all of these drugs and considerable variability exists among patients receiving the same drug regarding the risk of metabolic effects. Anti-psychotic agents not only increase the risk of metabolic disorder, they also increase the risk of CVA, akathisia, and movement disorders including EPS or tardive dyskinesia (more common with first generation antipsychotics) and more. Medication Management and Follow-Up - Plan: - Schedule follow-up appointments every 1-3 months to monitor the patient's response to the medication regimen. - Reinforce the importance of avoiding recreational drug use due to potential neurotoxicity and interactions with prescribed medications. 08/24/2024 Other Bupropion Extended Release Oral Tablet (BUPROPION HCL EXTENDED-RELEASE (ANTIDEPRESSANT) - ORAL) material was published, Quetiapine Oral Tablet (QUETIAPINE - ORAL) material was published, Atomoxetine Oral Capsule (ATOMOXETINE - ORAL) material was published Presently taking Straterra 40 mg daily in am, Wellbutrin XL 150 MG DAILY in am, Seroquel 300 mg bedtime Bipolar- Wellbutrin XL 150 MG DAILY in am, Seroquel 300 mg bedtime AIMS= 0 08/24/24 Missing teeth Anxiety- therapy ADD- Straterra 40 mg daily in am Primary Insomnia PTSD- therapy labs 04/24 PCP obtain educated on all medications, benefits, side effects and risk, and educated on depression, anxiety, and ADHD, mood d/o and educated on compliance of medications, metabolic and movement d/o education appointment is, continue therapy discussion with patient about course of treatment and patient instructions. education on serotonin syndrome SSRI/SNRI side effects discussed including but not limited to, gastric upset, nausea, vomiting, diarrhea and/or constipation, weight changes, sexual side effects including loss of libido, increased suicidal thoughts/behavio rs in children and young adults, and serotonin syndrome. Patient educated on all medications including potential benefits, side effects, risks. Educated on proper dosing schedule and importance of compliance Second generation antipsychotics (SGAs) have metabolic syndrome issues with weight gain, increase in prolactin, increased waist circumference, increased lipids, and increased glucose. Thus routine monitoring of weight, metabolic labs, etc. is indicated. A general rank ordering of antipsychotics that have the greatest to the least risk of metabolic effects is olanzapine, quetiapine, risperidone, ziprasidone, and aripiprazole. However, weight gain can occur with all of these drugs and considerable variability exists among patients receiving the same drug regarding the risk of metabolic effects. Anti-psychotic agents not only increase the risk of metabolic disorder, they also increase the risk of CVA, akathisia, and movement disorders including EPS or tardive dyskinesia (more common with first generation antipsychotics) and more. Medication Management and Follow-Up - Plan: - Schedule follow-up appointments every 1-3 months to monitor the patient's response to the medication regimen. - Reinforce the importance of avoiding recreational drug use due to potential neurotoxicity and interactions with prescribed medications. 11/16/2024 Other Bupropion Extended Release Oral Tablet (BUPROPION HCL EXTENDED-RELEASE (ANTIDEPRESSANT) - ORAL) material was published, Quetiapine Oral Tablet (QUETIAPINE - ORAL) material was published, Atomoxetine Oral Capsule (ATOMOXETINE - ORAL) material was published Bipolar Disorder: Care Instructions material was published, Learning About Movement Disorders From Antipsychotic Medicines material was published, Learning About Mood Disorders material was published, Learning About How to Get Help During a Mental Health Crisis material was published, Bipolar Disorder: Care Instructions material was published, Learning About Mood Disorders material was published, Learning About Movement Disorders From Antipsychotic Medicines material was published, Learning About How to Get Help During a Mental Health Crisis material was published 1. Bipolar- having increase depression and sleep issues Wellbutrin XL 150 MG DAILY in am, discuss and educated on Cymbalta (good response in past) for depression and anxiety and also help her chronic pain, will see how increase Seroquel does until next visit then re-address Cymbalta Increase Seroquel 400 mg bedtime AIMS= 0 08/24/24 Missing teeth 2.Anxiety- therapy 3. ADD- Straterra 40 mg daily in am 4. Primary Insomnia- sleep hygiene on Seroquel will also help sleep 5.PTSD- therapy labs 04/24 PCP obtain 6. tobacco use Do not smoke. Nicotine and other chemicals in cigarettes and cigars can cause lung damage. Ask your healthcare provider for information if you currently smoke and need help to quit. E-cigarettes or smokeless tobacco still contain nicotine. Talk to your healthcare provider before you use these products. education on decrease to stopping nicotine products and stop smoking hotline given 689-Quit - Yes [place] Tobacco Quitline Call a Smoking Quitline The National Cancer [place]'s Smoking Quitline, (5-039-14P-QUIT) Smokefree.gov, which connects you with your State's Quitline, (7-796-TVZXIQB) Veterans Smoking Quitline, (3-344-BRTVBSG) 8. Cannabis use Recommend decrease/stop cannabis use as it can negatively impact mood, motivation, anxiety, sleep, focus/concentrat ion/memory (vigilance, elasticity, processing and attention); can also contribute to development of psychosis. http_s://www.nim h.nih.gov/health /topics/mental-h ealth-medication s http_s://www.nam i.org/About-Ment al-Illness/Treat ments/Mental-Hea lth-Medications Recommend decrease/stop cannabis use as it may be negatively impacting mood, motivation, anxiety, sleep, focus; can also contribute to development of psychosis Cannabis/marijua na information: http_s://gely.ni h.gov/publicatio ns/drugfacts/can nabis-marijuana http_s://www.Qio.Yactraq Online/can rekma-rza-fjpvip us-esixghntm-qgl d/ 8. HTN on B/P RX and see PCP educated on healthy b/p 120/80 monitor b/p at home refer to PCP, Urgent care/ER heart healthy diet and excise limit salt intake limit soda intake and caffiene increase water educated on all medications, benefits, side effects and risk, and educated on depression, anxiety, and ADHD, mood d/o and educated on compliance of medications, metabolic and movement d/o education appointment is, continue therapy discussion with patient about course of treatment and patient instructions. education on serotonin syndrome SSRI/SNRI side effects discussed including but not limited to, gastric upset, nausea, vomiting, diarrhea and/or constipation, weight changes, sexual side effects including loss of libido, increased suicidal thoughts/behavio rs in children and young adults, and serotonin syndrome. Patient educated on all medications including potential benefits, side effects, risks. Educated on proper dosing schedule and importance of compliance Second generation antipsychotics (SGAs) have metabolic syndrome issues with weight gain, increase in prolactin, increased waist circumference, increased lipids, and increased glucose. Thus routine monitoring of weight, metabolic labs, etc. is indicated. A general rank ordering of antipsychotics that have the greatest to the least risk of metabolic effects is olanzapine, quetiapine, risperidone, ziprasidone, and aripiprazole. However, weight gain can occur with all of these drugs and considerable variability exists among patients receiving the same drug regarding the risk of metabolic effects. Anti-psychotic agents not only increase the risk of metabolic disorder, they also increase the risk of CVA, akathisia, and movement disorders including EPS or tardive dyskinesia (more common with first generation antipsychotics) and more. Medication Management and Follow-Up - Plan: - Schedule follow-up appointments every 1-3 months to monitor the patient's response to the medication regimen. - Reinforce the importance of avoiding recreational drug use due to potential neurotoxicity and interactions with prescribed medications. Plan Of Treatment Next Appt Details Provider Name:Lynette Patrick, 03/07/2025 08:00:00 AM, [address], [facility] [address], [address], Provider Name:Lynette Patrick, 03/21/2025 08:00:00 AM, [address], [address], [place], [address], Provider Name:Lynette Patrick, 04/04/2025 08:00:00 AM, [address], [address], [place], [address], Provider Name:Nevaeh Emmanuel , 04/19/2025 08:15:00 AM, [address], [address], [place], [address], Insurance Providers Payer Name Payer Address Payer Phone Subscriber Number Group Number Insured Name Patient Relationship to Insured Coverage Start Date Coverage End Date [facility] Medicare Replacement/ Advantage - Hmo [address] [place] [address] [id number] DAVID CASEY Self - patient is the insured [place] [address] [address] [place] [address] [id number] DAVID CASEY Self - patient is the insured Medical (General) History Medical History History ICD Code Problems: Anxiety Attention deficit hyperactivity disorder Attention deficit hyperactivity disorder , combined type Bipolar disorder Body mass index 40+ - severely obese Cannabis dependence Carpal tunnel syndrome of right wrist Chronic pain Depressive disorder Essential hypertension Generalized anxiety disorder History of SARS-CoV-2 Leukocytosis Long-term drug therapy Mild depressed bipolar I disorder Mixed urinary incontinence Moderate bipolar disorder Multiple joint pain Osteoarthritis Pain of joint of right foot Plantar fasciitis Primary insomnia Reactive thrombocytosis Recurrent falls Sleep apnea Spinal stenosis of lumbar region Syncope Tobacco dependence, continuous Tobacco user Vitamin D deficiency Walking disability Weakness of right lower limb , Surgical History Surgery Date(Month/Year) delivery (42182) Hysterectomy/revise vagina (93448) Other Hysterectomy (47822) 10/20/2018
--- OUTSIDE RECORDS SUMMARY | 2025-03-03 16:36 | XMS_ITS | Clinical Summary ---
Author Organization [facility] Address [address] [place] [address] Care Team Providers Care Molecular Physicist Name Role Phone Enrique Hardy MD Primary Care Provider [phone] Source Comments [facility],non-owned Affiliates and Associated Physician Practices is amultiple site organization consisting of ambulatory clinics and hospital sitesin [place], [place], [place] and [place]. This disclosure is being madepursuant to the Care Everywhere program and may not contain all information available regarding this patient. Last updated 18.[facility] Allergies Active Allergy Reactions Criticality Noted Date Comments Hydrocodone-Acetaminophen Other,Nausea a nd/or Vomiting Low 10/08/2020 Latex Urticaria,Itching,Ra sh,Swel ling High 10/08/2020 Tree Nuts Anaphylaxis,Urticari a,Itchi ng,Rash High 10/14/2020 Medications * Be aware that medications may not be up to date on this document. Alwaysverify current medications with the patient. albuterol HFA (PROVENTIL; VENTOLIN; PROAIR) 108 (90 Base) MCG/ACT inhaler Inhale 2 puffs by mouth every 6 hours as needed 03/25/2021 Active albuterol HFA (PROVENTIL; VENTOLIN; PROAIR) 108 (90 Base) MCG/ACT inhaler Inhale 2 puffs by mouth every 6 hours as needed Active busPIRone (BUSPAR) 10 MG tablet Take 10 mg by mouth 2 times daily with morning and evening meal 06/30/2021 Active cyclobenzaprine (FLEXERIL) 10 MG tablet Take 10 mg by mouth 3 times daily as needed 08/12/2021 Active DULoxetine (CYMBALTA) 30 MG capsule Take 30 mg by mouth 2 times daily 06/30/2021 Active estradiol (ESTRACE) 1 MG tablet Take 1 mg by mouth once daily 09/11/2020 Active gabapentin (NEURONTIN) 300 MG capsule Take 300 mg by mouth 2 times daily 12/24/2020 Active lisinopril (PRINIVIL; ZESTRIL) 10 MG tablet Take 10 mg by mouth once daily 07/10/2021 Active QUEtiapine (SEROQUEL) 300 MG tablet Take 300 mg by mouth at bedtime 07/22/2021 Active Active Problems Problem Noted Date Diagnosed Date Encounter for health-related screening Leukocytosis (leucocytosis) 10/14/2020 Reactive thrombocytosis 10/14/2020 Back pain 10/08/2020 Bipolar disorder 10/08/2020 Dyspnea on exertion 10/08/2020 Essential (primary) hypertension 10/08/2020 Osteoarthrosis 10/08/2020 Palpitations 10/08/2020 Sleep apnea, unspecified 10/08/2020 Thrombocythemia 10/08/2020 Tobacco use disorder, continuous 10/08/2020 Social History Tobacco Use Types Packs/Day Years Used Date Smoking Tobacco: Every Day Smokeless Tobacco: Never Alcohol Use Standard Drinks/Week Comments Never 0 (1 standard drink = 0.6 oz pur e alcohol) Comments Unknown Sex and Gender Information Value Date Recorded Sex Assigned at Not on file Legal Sex Female 12:14 PM DEPARTMENT EDITOR Gender Identity Not on file Sexual Orientation Not on file Last Filed Vital Signs Vital Sign Reading Time Taken Comments Blood Pressure - - Pulse - - Temperature - - Respiratory Rate - - Oxygen Saturation - - Inhaled Oxygen Concentration - - Weight 129.3 kg (285 lb) 09/08/2021 8:44 AM DEPARTMENT EDITOR Height 165.1 cm (5' 5 ) 09/08/2021 8:44 AM DEPARTMENT EDITOR Body Mass Index 47.43 09/08/2021 8:44 AM DEPARTMENT EDITOR Plan of Treatment Health Maintenance Due Date Last Done Comments COLOGUARD (AGES 45-75) - COL ON CA SCREENING 1974 COLON MONITORING 1974 COLONOSCOPY - COLON CA SCREENING 1974 CT COLONOGRAPHY - COLON CA SCREENING 1974 Colorectal Cancer Screening 1974 FIT - COLON CA SCREENING 1974 FLEX SIG - COLON CA SCREENING 1974 MAMMOGRAM 1974 MEDICARE AWV 12 MONTHS 1974 PAP SMEAR 1974 HIV SCREENING 1989 DTAP/TDAP/TD VACCINES (1 - Tdap) 1993 HEPATITIS B VACCINE (1 of 3 - 19+ 3-dose series) 1993 PNEUMOCOCCAL VACCINE 50+ (1 of 2 - PCV) 1993 SCREENING FOR DIABETES 09/08/2021 COVID-19 VACCINE (3 - 2023-2 5 season) 2024 02/22/2021, 01/31/2021 ZOSTER VACCINE (1 of 2) 2024 INFLUENZA VACCINE (Season Ended) 2025 LIPID TESTING 04/16/2028 04/16/2023 HEPATITIS C SCREENING Completed 04/16/2023 HIB VACCINE Aged Out No longer eligi ble based on patient's age to complete this topic HPV VACCINE Aged Out No longer eligi ble based on patient's age to complete this topic MENINGOCOCCAL (Group B) VACCINE SHARED DECISION-MAKING Aged Out No longer eligible based on patient's age to complete this topic MENINGOCOCCAL GROUPS A/C/Y/W VACCINE Aged Out No longer eligible b ased on patient's age to complete this topic Insurance [facility] MEDICARE Care Teams Molecular Physicist Relationship Specialty Start Date End Date Enrique Hardy MD [facility] [address] [address] PCP - General 10/03/20
--- OUTSIDE RECORDS SUMMARY | 2025-03-03 16:36 | XMS_ITS | Encounter Summary ---
Author Organization [facility] Address [facility] [place] [address] Care Team Providers Care Turn Out Worker Name Role Phone Britta Corral Primary Care Provider Encounter Details Date Type Department Care Team (Late st Contact Info) Description 03/10/2024 Texture[employer] Message Enc [facility] Family & Internal Medicine [address] [phone] [place], [facility] Provider Annual appt with Britta Corral Social History Tobacco Use Types Packs/Day Years [...] Sex Assigned at Female 12/14/2023 9:51 AM RADIOLOGY TECHNICIAN Legal Sex Female 12:37 PM CDT Gender Identity Female 12/14/2023 9:51 AM RADIOLOGY TECHNICIAN Sexual Orientation Not on file documented as of this encounter Plan of Treatment Not on file documented as of this encounter Visit Diagnoses Not on filedocumented in this encounter Additional Health Concerns Assessment Noted Time PHQ-9 Depression Total Score: 8 11/08/19 24 8:33 AM RADIOLOGY TECHNICIAN documented as of this encounter Care Teams Turn Out Worker Relationship Specialty Start Date End Date Britta Corral FNP [address] [place] [id number] PCP - General Nurse Practitioner Family 03/24/23 documented as of this encounter
--- OUTSIDE RECORDS SUMMARY | 2025-03-03 16:36 | XMS_ITS | CONTINUITY OF CARE DOCUMENT ---
Author Name catherine durankaitlin Address Unknown Organization [facility] Address [address] [place] [address] [address] [place] [address] Phone [phone] Care Team Providers Care Tactical Debriefer Officer Name Role Phone Oniel MARY, Rico Unavailable JUANJOSE ALVAERZ MD Unavailable [phone] JUANJOSE ALVAREZ MD Unavailable [phone] PROBLEMS Condition Status Date Provider Notes Screening active Rico Engle MD Palpitations active Rico Engle MD Dyspnea on exertion active Rico Engle MD Thrombocytosis active Rico Engle MD SLEEP APNEA;on rx active Rico Engle MD HTN essential active Rico Engle MD Tobacco dependence, continuous active Zeke Engle MD BACK PAIN;CHRONIC active Rico Engle MD Osteoarthritis active Rico Engle MD Bipolar disorder active Rico Engle MD ENCOUNTERS Date Type Provider Location Encounter Diag nosis - In-person encounter Office Visit Rico Engle MD [facility] Office Bipolar disorderOsteoarthritisBACK PAIN;CHRONICTobacco dependence, continuousHTN essentialSLEEP APNEA;on rxPalpitationsDyspnea on exertionThrombocytosis VITAL SIGNS Date Observation Value Provider Body Mass Index (Ratio) 42.12 kg/m2 Claire Engle MD blood pressure, resting No Seymour jacobs O'Woo blood pressure, diastolic 90 mm[Hg] Ma rsha O'Woo blood pressure, systolic 158 mm[Hg] Mariel Newman'Woo oxygen saturation, oximetry 95 % Celeste O'Woo respiratory rate E&M 16 /min Celeste O'Woo pulse rate 77 /min Celeste O'Woo weight E&M 261 [lb_av] Celeste O'Woo height E&M 66 [in_i] Celeste O'Woo ALLERGIES Allergy Name Onset Date Reaction Criticality Status ADHESIVE TAPE Low Criticality active VICODIN Low Criticality active LATEX Low Criticality active HISTORY OF MEDICATION USE Medication Status Instructions Dates Provider Indications Com ments lisinopril 10 mg tablet active 1 tablet by mouth once a day Rico Engle MD oxycodone-acetaminoph en 5-325 mg tablet active 1 tablet by mouth twice a day Celeste O'Woo methylprednisolone 4 mg tablet active as directed Celeste O'Woo bupropion HCl 150 mg tablet extended release 24 hr active Take 1 tablet by mouth once a day Celeste O'Woo #30, 30 days supply, Prescribed by JUANJOSE ALVAREZ, Filled 09/11/2020 quetiapine 100 mg tablet active Take 1 tablet by mouth every night Celeste O'Woo #30, 30 days supply, Prescribed by ANGELITO PAYAN, Filled 10/01/2020 SOCIAL HISTORY Date Observation Value Provider social history E&M S moking History: P melonie currently smokes every day. Rico Engle MD social history reviewed E&M revi ewed - no changes required Rico Engle MD number of years as a smoker 30 a Celeste O'Woo smoking history, tot al pack/day 1/2 p Celeste O'Woo cigarette use yes Celeste O'Woo smoking status Current every day smoker M hesham Newman'Woo FAMILY HISTORY Family Member Condition Mother Family History of De pression: Mother Family History of As thma: Mother Family History of Al coholism: INSURANCE PROVIDERS Payer name Policy type / Coverage type [place] [employer] party ID [employer] [facility] [id number] 1 ADVANCE DIRECTIVES Name Date DISCUSSED - NO DECISION MADE TREATMENT PLAN Date Name Performer :neg echo Rico Engle MD Cardiology Rico Engle MD Cardiology Rico Engle MD Cardiology Rico Engle MD Cardiology Rico Engle MD Cardiology Rico Engle MD Cardiology Rico Engle MD Date Name DLCO - 13212 FRC - 24256 FVC - 72581 Holter Monitor [address], Coronary Calcium Score HISTORY OF PROCEDURES Procedure Date Procedure Name Provider Procedure Notes S tatus Holter, 24 or 48 Rico Engle MD co mpleted Event Monitor Rico Engle MD compl eted FVC / MVV with bronchodilator - 19410 Rico Engle MD completed BLOOD COUNT HEMOGLOBIN Rico Engle MD completed FRC - 25736 Rico Engle MD complet ed SpO2 w/o 6min walk/titration Rico Engle MD completed DLCO - 76122 Rico Engle MD comple alicia EKG Rico Engle MD complete d
--- OUTSIDE RECORDS SUMMARY | 2025-03-03 16:36 | XMS_ITS | Data Portability ---
Author Organization BALDO Foley, [facility] Address [address] [place] [address] Care Team Providers Care Large Animal Husbandry Technician Name Role HANNAH Best Primary Care Provider Unavailabl e HANNAH DYE Referring Provider Unavailable Assessment Encounter Date Assessment Date Assessment LastModified by Organization Details LastModified Time 05/29/2019 05/29/2019 43-year-old female with right knee pain, possible meniscus tear. I placed her on diclofenac. I placed her in therapy. Follow up in 4-6 weeks. If pain persists, we may pursue advanced imaging [email or web address] Not available 05/29/2019 15:36:17 Plan of Treatment Reminders Order Date Submit Date Provider Last Modified By Organization Details Last Modified Time Details Appointments None recorded. Lab None recorded. Referral physical therapy knee referral - indicated modalities , ROM, quad activation and strengthen ing, HEP, etc2x per week for 4 weeks 2018 [email or web address] Not available 17:26:49 Procedures None recorded. Surgeries None recorded. Imaging XR, knee, 4 or more view 2018 [email or web address] [facility], [address] [place], [address], 9 15:40:36 Medication Orders diclofenac ER 100 mg tablet,ext ended release 24 hr 2018 019 INTERFACE [id number], [address], [place], [id number], 9 15:36:31 Patient TargetsNo targets recorded. Patient Instructions Encounter Date Encounter Id Patient Instructions Last Modified By Organization Details Last Modified Time 05/29/2019 [id number] learning about healthy weight [email or web address] Not available 05/29/2019 15:36:23 Quitting Tobacco : Care Instructions [email or web address] Not available 05/29/2019 15:36:23 A healthy lifestyle: care instructions Not available 05/29/2019 15:36:23 Reason for Referral indicated modalities, ROM, q uad activation and strengthening, HEP, etc2x per week for 4 weeks Referring Physician: Sandoval Freitas, Orthopedic Sports Medicine, Encounter Date: 05/29/2019 Problems Name Problem SNOMED Code Status Onset Date Resolution Date Notes Provider Name and Address Organization Details Recorded Time No current problems or disability 970495480 Active MARTIN Garcia PA 9 15:10:08 Pain in right knee Active 019 Sandoval Freitas MD [address] [place] [address], [phone], BALDO Foley 9 15:36:20 Problem Notes None recorded. Procedures Surgical History Date Name Laterality Status Provider Name and Address Organization Details Recorded Time 10/01/20 17 Hysterectomy completed Genoveva Stark PA 05/29/2019 15:11:19 05/07/20 13 delivery completed BALDO Rojas 05/29/2019 15:11:06 Imaging Results None recorded. Procedure Notes None recorded. Medical Equipment None Reported. Allergies Allergen ID Allergen Name Allergen Category Reaction Reaction Severity Criticality Documentation Date Start Date Code Code System Note Provider Name and Address Organization Details Recorded Time 609690 latex environme nt,medica tion Not available Not available Not available 05/29/2019 88798 91 RxNorm MARTIN Garcia [facility]id PA 9 15:08:55 728250 acetamino phen / hydrocodo ne medicatio n Not available Not available Not available 05/29/2019 64706 2 RxNorm MARTIN Garcia [facility]shid PA 9 15:09:04 Medications Name Sig Start Date Stop Date Status Note LastModified by Organization Details LastModified Time bupropion HCl SR 150 mg tablet,12 hr sustained-rele ase 2018 active Not Available Not Available Not Avai lable diclofenac ER 100 mg tablet,extende d release 24 hr Take 1 daily active Not Available Not Available No t Available alprazolam 0.5 mg tablet TK 1 T PO TID PRN active Not Available Not Available No t Available estradiol 1 mg tablet active Not Available Not Available Not Available lithium carbonate 300 mg capsule active Not Available Not Available N ot Available lisinopril 10 mg tablet active Not Available Not Available No t Available buspirone 15 mg tablet 05/29 completed Not Available Not Available Not Available buprenorphine HCl 2 mg sublingual tablet active Not Available Not Available Not Available bupropion HCl XL 150 mg 24 hr tablet, extended release 05/29 completed Not Available Not Available Not Available escitalopram 5 mg tablet active Not Available Not Available No t Available duloxetine 30 mg capsule,delaye d release active Not Available Not Available No t Available ProAir HFA 90 mcg/actuation aerosol inhaler active Not Available Not Available Not Available Vitals Date Recorded Body height Body mass index (BMI) Body weight Heart rate Systolic blood pressure Diastolic blood pressure Provider Name and Address Organization Details Last Updated DateTime 9 167.64 cm 40.4 kg/m2 923543. 09 g 75 /min 137 mm[Hg] 87 mm[Hg] [facility] 9 15:08:43 Social History Question Answer Notes LastModified by Organizat ion Details LastModified Time Tobacco Smoking Status Current Some Day Smoker MARTIN Garcia PA 05/29/2019 15:10:26 How Many Years Have You Smoked Tobacco? 10 [email or web address] Information not available 05/29/2019 Sex: Unknown Functional Status None recorded. Mental Status None recorded. Family History Relationship Description Onset Age of this Age Resolved Age Notes LastModified by Organization Details LastModified Time Mother Blood coagulation disorder [email or web address] Not available 05/29 15:10:19 Medical History Condition Response Heart Problems N Coronary Artery Disease N HIV or AIDS N Crohn's/Ulcerative Colitis N Malignant Hyperthermia N Atrial Fibrillation N Anxiety N Thyroid Problems N Depression Y COPD N Blood Clots N Lung Disease N Pacemaker N Heart Attack ([place]) N Ulcers N Peripheral Neuropathy N Stomach Ulcers N Diabetes N Bleeding Disorder N Arthritis N Seizures/Epilepsy N Tuberculosis N Cancer N Stroke N Asthma Y Ankylosing Spondylitis N Peripheral Vascular Disease N GERD/Reflux N Hepatitis N Liver Disease N Heart Disease N Rheumatoid Arthritis N Fibromyalgia N Hypertension Y Osteoporosis N Kidney Disease N Gynecological HistoryNo gynecological history recorded. Obstetrics History GPAL:G 0 P 0 0 0 0 Past Encounters Encounter ID Performer Location Encounter Start Date Encounter Closed Date Diagnosis/Indication Diagnosis SNOMED-CT Code Diagnosis ICD10 Code Diagnosis Note [id number] Sandoval Freitas MD [facility] [address],[place] [address] [place] [address] 05/29/2019 14:34:55 05/29/2019 15:40:36 Pain in right knee 5945888164 50054 M25.561 Elevated blood-pressure reading without diagnosis of hypertension 470887196 R03.0 Tobacco user 175019324 Z 72.0 Body mass index 40+ - severely obese 542190085 Z68.41 Health Concerns Section Related Observation LastModified by Organization Detai ls LastModified Time None Recorded Concern Status LastModified by Organization Details LastModified Time None Recorded Advance Directives Directive None Recorded Payers Encounter Date Sequence Insurance Name Policy Number Policy Jane Covered Member ID Jane Member ID Guarantor Name 05/29/2019 1 DEBORAH YNAG - COORDINATED CARE (MEDICARE REPLACEMENT HMO) Hoa Presley [id number] Hoa Presley Notes Date Note Type Note Provider Name and Address Organization Details Recorded Time 05/29/2019 text/html 43-year-old fema le with right knee pain. She had a locking episode 3 years ago. She has had some trouble ever since. No formal treatment. Pain is diffuse. Pain does not radiate. There continues to be mechanical catching. No neurological complaints Sandoval Freitas MD [address] [place] [address], [phone], [place] - BALDO Stark 05/29/2019 15:36:35 OBGyn Episode No OBEpisode recorded.
--- OUTSIDE RECORDS SUMMARY | 2025-03-03 16:36 | XMS_ITS | Clinical Summary ---
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 06/29/20 22 Active buPROPion XL (WELLBUTRIN XL) 150 MG 24 hr tablet Take 1 tablet (150 mg total) by mouth every morning. 04/30/20 23 Active lisinopril (PRINIVIL) 5 MG tabletIndication s:Essential (primary) hypertension Take 1 tablet (5 mg total) by mouth daily. 90 tablet 3 04/07/20 24 Active Vitamin D, Cholecalciferol, 50 MCG (1999 UT) CapIndications:V itamin D deficiency, unspecified Take 50 mcg by mouth daily. 90 capsule 3 04/07/20 24 Active DULoxetine (CYMBALTA) 30 MG capsule daily. 03/14/20 24 Active LYRICA 75 MG capsule 1 capsule (75 mg total) daily. Active pantoprazole EC (PROTONIX) 20 MG tabletIndication s:Gastroesophage al reflux disease, unspecified whether esophagitis present Take 1 tablet (20 mg total) by mouth daily. 90 tablet 1 12/26/19 25 Active hydroCHLOROthiaz malkia (HYDRODIURIL) 25 MG tabletIndication s:Essential (primary) hypertension,Loc alized swelling of both lower legs Take 1 tablet (25 mg total) by mouth every morning. 90 tablet 1 12/26/19 25 Active albuterol sulfate HFA 108 (90 Base) MCG/ACT inhalerIndicatio ns:Chronic cough Inhale 2 puffs into the lungs every 4 (four) hours as needed for Wheezing. 18 g 1 12/26/19 25 Active clotrimazole (LOTRIMIN) 1 % cream Apply topically 2 (two) times daily. Apply along left hip 113 g 02/14/20 25 Active nystatin (MYCOSTATIN) powder Apply topically 3 (three) times daily. 60 g 02/14/20 25 Active albuterol sulfate HFA 108 (90 Base) MCG/ACT inhalerIndicatio ns:Chronic cough Inhale 2 puffs into the lungs every 6 (six) hours as needed for Wheezing. 8 g 12/28/19 25 025 Discontinued predniSONE (DELTASONE) 20 MG tablet Take 1 tablet (20 mg total) by mouth daily for 7 days. 7 tablet 02/01/20 25 025 benzonatate (TESSALON PERLES) 100 MG capsule Take 1 capsule (100 mg total) by mouth 3 (three) times daily as needed. 20 capsule 02/01/20 25 025 guaiFENesin-code ine (GUAIFENESIN AC) 100-10 MG/5ML syrupIndications :Cough Take 5 mLs by mouth every 4 (four) hours as needed. Indications: Cough 180 mL 02/01/20 25 025 Active Problems Problem Noted Date Diagnosed Date Cervical myelopathy ([facility]) 12/29/2024 Gastroesophageal reflux dise ase, unspecified whether esophagitis present 12/29/2024 Cardiomegaly 04/07/2024 Localized swelling of both lower legs 04/07/2024 Abnormal CXR (chest x-ray) 04/07/2024 Hallux valgus (acquired), right foot 11/08/2023 Right carpal tunnel syndrome 10/08/2023 Arthralgia of right foot 04/27/2023 Mixed stress and urge urinary incontinence 04/27 Syncope, unspecified syncope type 04/27/2023 Excessive falling 04/14/2023 Spinal stenosis at L4-L5 level 04/14/2023 Depression 04/14/2023 Anxiety 04/14/2023 Plantar fasciitis 04/14/2023 Impaired ambulation 04/14/2023 Vitamin D deficiency, unspecified 04/14/2023 Polyarthralgia 04/14/2023 Other chronic pain 04/14/2023 Right leg weakness 04/14/2023 Leukocytosis (leucocytosis) 10/14/2020 Reactive thrombocytosis 10/14/2020 Bipolar disorder ([facility]) 10/08/2020 Essential (primary) hypertension 10/08/2020 Osteoarthrosis 10/08/2020 Tobacco use disorder, continuous 10/08/2020 Macrocytosis 08/15/2018 Obstructive sleep apnea syndrome 04/14/2018 Tobacco user 04/14/2018 Mixed anxiety and depressive disorder 04/14/2018 Resolved Problems Problem Noted Date Diagnosed Date Resolved Date Obesity, morbid, BMI 40.0-49.9 04/14/2023 12/26/2024 Morbid obesity 04/14/2018 12/26/2024 Encounters Date Type Department Care Team Description 02/13/2025 10:26 AM CDT - 02/13/2025 10:44 AM CDT Hospital Encounter [facility] [address] [place] [address] Mary Crawley DO Rash Discharge Disposition: Home or Self Care (Routine Discharge) 02/13/2025 Travel 02/12/2025 MyChart Message Enc [facility] Family & Internal Medicine [address] [address] Eliezer Olivas FNP Rash concerns 01/31/2025 10:54 AM CDT - 01/31/2025 11:43 AM CDT Hospital Encounter [facility] [address] [place] [address] Nataliya Deal NP URI Discharge Disposition: Home or Self Care (Routine Discharge) 01/31/2025 Travel 12/28/2024 Telephone [facility] [address] [phone] Eliezer Olivas FNP Prior Authorization (Albuterol HFA 90 mcg inhaler) 12/26/2024 8:00 AM RESOURCE DEVELOPMENT MANAGER Office Visit [facility] Internal [address] [address] Eliezer Olivas FNP Leg Pain (Swelling both legs, but rt is worse x3 mo) 12/26/2024 Travel from Last 3 Months Immunizations Immunization Administration Dates Next Due Fluzone 6 Months+ Quad (0.5 mL Prefilled Syringe ) 10/08/2023 PFIZER COVID-19 (ORIGINAL FO RMULATION, PURPLE CAP) mRNA, LNP-S, PF, 30 MCG/0.3 ML DOSE 02/22/2021,01/31/2021 Pneumococcal (Prevnar 20) 10/08/2023 Tdap (Adacel) 10/08/2023 Family History Medical History Relation Comments Diabetes Maternal Aunt COPD Maternal Grandmother Diabetes Maternal Grandmother Alcohol Abuse Mother Anxiety Mother Arthritis Mother COPD Mother Depression Mother Drug Abuse Mother Hypertension Mother drug Mother prediabetes Mother Relation Status Comments Father (Age 50) Maternal Aunt Maternal Grandmother Mother (Age 58) Social History Tobacco Use Types Packs/Day Years Used Date Smoking Tobacco: Former Cigarettes 0.5 30 Passive Smoke Exposure: Past Smokeless Tobacco: Never Tobacco Cessation:Counseling Given: Not Answered Comments:The provider can provide you with information to quit smoking. Alcohol Use Standard Drinks/Week Comments Never 0 (1 standard drink = 0.6 oz pur e alcohol) PHQ-2 Answer Date Recorded Patient Health Questionnaire-2 Score 0 12/26/2024 Comments No Sex and Gender Information Value Date Recorded Sex Assigned at Female 12/14/2023 9:51 AM RESOURCE DEVELOPMENT MANAGER Legal Sex Female 12:37 PM CDT Gender Identity Female 12/14/2023 9:51 AM RESOURCE DEVELOPMENT MANAGER Sexual Orientation Not on file Last Filed Vital Signs Vital Sign Reading Time Taken Comments Blood Pressure 147/91 02/13/2025 10:30 AM CDT Pulse 80 02/13/2025 10:30 AM CDT Temperature 36.7 C (98 F) 02/13/2025 10:30 AM CDT Respiratory Rate 20 02/13/2025 10:30 AM CDT Oxygen Saturation 98% 02/13/2025 10:30 AM CDT Inhaled Oxygen Concentration - - Weight 140.6 kg (310 lb) 02/13/2025 10:30 AM CDT Height 163.8 cm (5' 4.5 ) 02/13/2025 10:30 AM CD T Body Mass Index 52.39 02/13/2025 10:30 AM CDT Plan of Treatment Health Maintenance Due Date Last Done Comments Colorectal Cancer Screening Colonoscopy (10 Years) 1974 Annual Physical 1977 Hepatitis B Vaccines (1 of 3 - 19+ 3-dose series) 1993 Mammogram Screening 05/03/2025 05/03/2023 Zoster Vaccines (1 of 2) 12/26/2025 Pos tponed from 2024 (Going to Outside Clinic) DTaP, Tdap and Td Vaccines ( 2 - Td or Tdap) 10/08/2033 10/08/2023 COVID-19 Vaccine (3 - 2023-2 5 season) 2112 02/22/2021, 01/31/2021 Postponed from 07/02/2024 (Going to Outside Clinic) Hepatitis C Completed 04/16/2023 Pneumococcal Vaccine: 50+ Years Completed 10/08/2023 PHQ-2 (Physician [place]) Completed 12/26/2024 Meningococcal B Vaccine Aged Out No l onger eligible based on patient's age to complete this topic Meningococcal Vaccine Aged Out No leyla hilda eligible based on patient's age to complete this topic RSV Immunizations Under 20 Months Aged Out No longer eligible b ased on patient's age to complete this topic Procedures Procedure Name Priority Date/Time Associated Diagnosis Comments XR CHEST PA+LAT STAT 01/31/2025 11:25 AM CDT MG SCREENING W VICENTE DEONDRE DIGI Routine 05/03/2023 8:46 AM CDT Encounter for screening mammogram for breast cancer HEPATITIS C ANTIBODY W/RFX TO HCV RNA Routine 04/16/2023 8:47 AM CDT from Last 3 Months or Most Recently Relevant to Health Maintenance Results * XR CHEST PA+LAT (01/31/2025 11:25 AM CDT) Anatomical Region Laterality Modality Chest Radiographic Dede ging 01/31/2025 11:2 9 AM CDT Impressions 01/31/2025 11:31 AM CDT =====IMPRESSION:===== Unremarkable two-view chest; no radiographic evidence of acute/active cardiopulmonary disease. Ordered By: NATALIYA DEAL Interpreted By: Pedrito Montes De Oca MD, 01/31/2025 11:29 AM Narrative 01/31/2025 11:31 AM CDT [place] [id number] Examination: Chest x-ray 2 view Exam date/time: 01/31/2025 11:19 AM Reason For Exam: 49 female. Productive cough for 2 weeks. Comparison: None Technique: Frontal upright and lateral view. Findings: Normal cardiac size. Normal position of the trachea. Hilar and mediastinal contours are within normal limits. Normal pulmonary vascularity. The lungs and pleural spaces spaces are radiographically clear; no consolidation, effusion or pneumothorax seen. Upper abdomen is unremarkable. Procedure Note Pedrito Montes De Oca MD - 01/31/[address] [address] Examination: Chest x-ray 2 view Exam date/time: 01/31/2025 11:19 AM Reason For Exam: 49 female. Productive cough for 2 weeks. Comparison: None Technique: Frontal upright and lateral view. Findings: Normal cardiac size. Normal position of the trachea. Hilar andmediastinal contours are within normal limits. Normal pulmonaryvascularity. The lungs and pleural spaces spaces are radiographicallyclear; no consolidation, effusion or pneumothorax seen. Upper abdomen is unremarkable. =====IMPRESSION:===== Unremarkable two-view chest; no radiographic evidence of acute/activecardiopulmonary disease. Ordered By: NATALIYA DEAL Interpreted By: Pedrito Montes De Oca MD, 01/31/2025 11:29 AM Nataliya Deal [facility] Final Result * MG SCREENING W VICENTE DEONDRE DIGI (05/03/2023 8:46 AM CDT) Anatomical Region Laterality Modality Breast Bilateral Mammography 05/11/2023 11:0 1 AM CDT Narrative 05/11/2023 11:05 AM CDT Examination: Screening bilateral mammogram Exam Date: 05/03/2023 8:24 AM Clinical history: Routine screening. Comparison: 10/22/2020 Technique: Digital screening mammography of both breasts was performed. Breast tomosynthesis acquisitions were obtained and reviewed. This study was read with the assistance of a computer-aided detection system. Tissue density: There are scattered areas of fibroglandular density. Findings: No suspicious masses, malignant appearing calcifications, skin thickening or other abnormalities are present. Scattered benign-appearing calcifications are noted. No significant change from the prior exam. IMPRESSION: No suspicious mammographic findings. Recommendation: 1. Routine Screening, Bilateral Assessment: ACR BI-RADS 2 - BENIGN FINDING(S) Ordered By: ELIEZER OLIVAS Interpreted By: Ayaz Charles MD, 05/11/2023 11:01 AM us Eliezer Olivas VOCATIONAL INSTRUCTOR [facility] Final Result * HEPATITIS C ANTIBODY W/RFX TO HCV RNA (04/16/2023 8:47 AM CDT) HEPATITIS C AB NON-REACT SURESH NON-REACT SURESH [employer] TELLY SIGNAL TO CUTOFF 0.15 <1.00 [facility] TE[facility] Comment: HCV antibody was non-reactive. There is no laboratory evidence of HCV infection. In most cases, no further action is required. However, if recent HCV exposure is suspected, a test for HCV RNA (test code 07659) is suggested. For additional information please refer to http://education.VocalIQ/faq/VNH27j8 (This link is being provided for informational/ educational purposes only.) 04/16/2023 8:47 AM CDT 04/16/2023 8:52 AM CDT Narrative [facility] - 04/20/2023 8:29 AM CDT FASTING:YES FASTING: YES Resulting Agency Comment Performing Organization Information: Site ID: [id number] Name: Tom Rahman Address: [address] [place] [address] Director: Maria Alejandra Gordon MD us Eliezer [facility] Final Result [facility] [address] [place], [place] [address] from Last 3 Months or Most Recently Relevant to Health Maintenance Insurance [facility] MEDICAID Care Teams Vehicle Painter Relationship Specialty Start Date End Date Eliezer Olivas FNP [address] [place] [address] PCP - General Nurse Practitioner Family 03/24/23
== END 2025-03-03 13:31 | disposition home or self-care (01) ==
PROVIDERS: PCP Nurse Practitioner Family; Visit Provider Nurse Practitioner Family
DX: S83.271A Complex tear of lateral meniscus, current injury, right knee, initial encounter (principal); M17.11 Unilateral primary osteoarthritis, right knee; M25.461 Effusion, right knee; G89.29 Other chronic pain; X58.XXXA Exposure to other specified factors, initial encounter
CPT/HCPCS: 73721